=== PATIENT | male | born 1970 | race Hispanic/Latino ===

== ENCOUNTER 2018-08-06 21:45 | Inpatient (IN) | payer OTHER ==
[~2018-08-06] VITALS: Ht 167.6 cm; Wt 59.0 kg
[2018-08-06 22:32] LABS: APPEARANCE,URINE Clear (CLEAR); BILIRUBIN,URINE Negative (NEGATIVE); COLOR,URINE Yellow (YELLOW); GLUCOSE, URINE (UA) Negative (NEGATIVE); KETONES,URINE Negative (NEGATIVE); LEUKOCYTE ESTERASE ,URINE Negative (NEGATIVE); NITRATE,URINE Negative (NEGATIVE); OCCULT BLOOD,URINE Negative (NEGATIVE); PH,URINE 6.5 (5.0-8.0); PROTEIN,URINE Negative (NEGATIVE)
[2018-08-06 22:40] LABS: BASOPHILS % (AUTO) 1.9 % (0.0-5.0); EOSINOPHILS % (AUTO) 0.3 % (0.0-8.0); HEMATOCRIT 27.2 % (42-54); LYMPHOCYTES % (AUTO) 40.1 % (21.0-51.0); MEAN CORPUSCULAR HEMOGLOBIN 25.9 pg (27.0-33.0); MEAN CORPUSCULAR HGB CONC 32.6 g/dL (32.0-36.0); MEAN CORPUSCULAR VOLUME 79.6 fL (79-99); MONOCYTES % (AUTO) 10.7 % (3.0-13.0); NUCLEATED RED BLOOD CELLS 0.1 % (0.0-0.19); PLATELET COUNT (AUTO) 77 K/uL (130-400); RED BLOOD CELL COUNT(AUTO) 3.41 MIL/uL (4.50-6.20); RED CELL DISTRIBUTION WIDTH 17.7 % (11.0-15.5)
[2018-08-06 22:55] LABS: INR 1.15 (0.85-1.15); PARTIAL THROMBOPLASTIN TIME 31.4 SEC (26.3-35.5)
[2018-08-06 23:00] LABS: ALBUMIN 2.8 g/dL (3.5-5.0); BILIRUBIN,TOTAL 1.6 mg/dL (0.2-1.0); CREATININE 0.6 mg/dL (0.5-1.5); POTASSIUM 3.5 mmol/L (3.5-5.1); TOTAL PROTEIN, SERUM 9.4 g/dL (6.0-8.3)
[2018-08-07] MEDS ORDERED: SODIUM CHLORIDE 0.9% 1000ML 1,000 ML IV SCH (01:13)
[2018-08-07] MEDS ORDERED: MORPHINE SULFATE 2 MG/ML 1ML SYG IV PRN (01:15)
[2018-08-07] MEDS ORDERED: ONDANSETRON HCL 4 MG/2 ML VIAL IV PRN (01:15)
[2018-08-07] MEDS ORDERED: ACETAMINOPHEN 325 MG TAB PO PRN (01:15)
[2018-08-07] MEDS ORDERED: ALBUTEROL SULFATE 0.083% 2.5 MG/3 ML INH IH PRN (01:15)
[2018-08-07] MEDS ORDERED: SODIUM CHLORIDE 0.9% 1000ML 1,000 ML IV ONE (01:46)
[2018-08-07 02:00] VITALS: BP 108/81
[2018-08-07 03:48] VITALS: BP 90/58
[2018-08-07] MEDS ORDERED: LIDOCAINE HCL-MPF 1% 2ML VIAL IVP PRN (07:00)
[2018-08-07] MEDS ORDERED: POTASSIUM CHLORIDE 20MEQ/100ML 100 ML IV PRN (07:00)
[2018-08-07] MEDS ORDERED: POTASSIUM CHLORIDE 10% ELIXIR 20 MEQ/15 ML UDCUP PO PRN (07:00)
[2018-08-07] MEDS: MAGNESIUM 2GM PREMIX 50ML 50 ML IV PRN (07:01)
[2018-08-07 08:00] VITALS: BP 102/66
[2018-08-07] MEDS: M.V.I. IV [ADULT] 10 ML, FOLIC ACID 1 MG, THIAMINE HCL 100 MG in SODIUM CHLORIDE 0.9% 1... IV SCH (09:18)
[2018-08-07] MEDS: FAMOTIDINE/PF 20 MG/2 ML VIAL IV SCH ×2 (09:19→22:10)
[2018-08-07 11:00] VITALS: BP 109/70
[2018-08-07] MEDS ORDERED: CHLORDIAZEPOXIDE HCL 25 MG CAP PO ONE (11:30)
[2018-08-07] MEDS ORDERED: LORAZEPAM 0.5 MG TABLET PO PRN (11:30)
[2018-08-07 18:07] LABS: APPEARANCE BODY FLUID SLIGHTLY CLOUDY (CLEAR); SPECIMENTYPE,BODY FLUID ASCITES
[2018-08-07 18:08] LABS: BODY FLUID RBC 1254 /cu. mm.; BODY FLUID WBC 188 /cu. mm.; COLOR,BODY FLUID YELLOW (LT YELLOW); TOTAL VOLUME,BODY FLUID 4500 mL
[2018-08-07 18:54] LABS: BF LYMPHOCYTE 43 %; BF MONOCYTE 8 %; BF OTHER CELLS 16
[2018-08-07 20:00] VITALS: BP 116/71
[2018-08-08] VITALS: BP 138/73
[2018-08-08 04:00] VITALS: BP 129/78
[2018-08-08 05:38] LABS: HEMATOCRIT 26.3 % (42-54); MEAN CORPUSCULAR HEMOGLOBIN 26.2 pg (27.0-33.0); MEAN CORPUSCULAR HGB CONC 32.7 g/dL (32.0-36.0); NUCLEATED RED BLOOD CELLS 0.2 % (0.0-0.19); PLATELET COUNT (AUTO) 68 K/uL (130-400); RED BLOOD CELL COUNT(AUTO) 3.28 MIL/uL (4.50-6.20); RED CELL DISTRIBUTION WIDTH 18.3 % (11.0-15.5); WHITE BLOOD COUNT (AUTO) 4.1 K/uL (4.8-10.8)
[2018-08-08 05:56] LABS: ALBUMIN 2.4 g/dL (3.5-5.0); BILIRUBIN,TOTAL 2.3 mg/dL (0.2-1.0); CREATININE 0.6 mg/dL (0.5-1.5); MAGNESIUM 1.4 mg/dL (1.80-2.40); TOTAL PROTEIN, SERUM 8.3 g/dL (6.0-8.3)
[2018-08-08 06:12] LABS: POTASSIUM 2.9 mmol/L (3.5-5.1)
[2018-08-08 08:00] VITALS: BP 126/81
[2018-08-08] MEDS: FAMOTIDINE/PF 20 MG/2 ML VIAL IV SCH ×2 (08:08→21:38)
[2018-08-08] MEDS: MAGNESIUM 2GM PREMIX 50ML 50 ML IV PRN (08:09)
[2018-08-08] MEDS: CHLORDIAZEPOXIDE HCL 25 MG CAP PO SCH ×3 (08:09→23:13)
[2018-08-08] MEDS ORDERED: POTASSIUM CHLORIDE 10% ELIXIR 20 MEQ/15 ML UDCUP PO ONE (09:00)
[2018-08-08] MEDS: M.V.I. IV [ADULT] 10 ML, FOLIC ACID 1 MG, THIAMINE HCL 100 MG in SODIUM CHLORIDE 0.9% 1... IV SCH (10:57)
[2018-08-08 11:00] VITALS: BP 110/76
[2018-08-08] MEDS: POTASSIUM CHLORIDE 20 MEQ ERTAB PO PRN (13:11)
[2018-08-08 16:00] VITALS: BP 114/77
[2018-08-08 20:00] VITALS: BP 112/72
[2018-08-08 20:18] LABS: MAGNESIUM 1.8 mg/dL (1.80-2.40); POTASSIUM 3.8 mmol/L (3.5-5.1)
[2018-08-09] VITALS: BP 108/69
[2018-08-09 04:00] VITALS: BP 109/65
[2018-08-09 04:56] LABS: HEMATOCRIT 25.8 % (42-54); MEAN CORPUSCULAR HGB CONC 33.4 g/dL (32.0-36.0); MEAN CORPUSCULAR VOLUME 81.1 fL (79-99); NUCLEATED RED BLOOD CELLS 0.1 % (0.0-0.19); PLATELET COUNT (AUTO) 77 K/uL (130-400); RED BLOOD CELL COUNT(AUTO) 3.18 MIL/uL (4.50-6.20); RED CELL DISTRIBUTION WIDTH 18.6 % (11.0-15.5); WHITE BLOOD COUNT (AUTO) 5.5 K/uL (4.8-10.8)
[2018-08-09 05:16] LABS: ALBUMIN 2.2 g/dL (3.5-5.0); BILIRUBIN,DIRECT 1.3 mg/dL (0.0-0.3); BILIRUBIN,TOTAL 2.3 mg/dL (0.2-1.0); CREATININE 0.6 mg/dL (0.5-1.5); POTASSIUM 3.4 mmol/L (3.5-5.1); TOTAL PROTEIN, SERUM 8.1 g/dL (6.0-8.3)
[2018-08-09] MEDS: MAGNESIUM 2GM PREMIX 50ML 50 ML IV PRN (05:45)
[2018-08-09] MEDS: POTASSIUM CHLORIDE 20 MEQ ERTAB PO PRN (05:51)
[2018-08-09 08:00] VITALS: BP 111/74
[2018-08-09] MEDS: CHLORDIAZEPOXIDE HCL 25 MG CAP PO SCH (08:30)
[2018-08-09] MEDS: FAMOTIDINE/PF 20 MG/2 ML VIAL IV SCH (08:30)
[2018-08-09 12:00] VITALS: BP 99/55
[2018-08-09] MEDS ORDERED: POTASSIUM CHLORIDE 10% ELIXIR 20 MEQ/15 ML UDCUP PO STA (12:51)
== END 2018-08-09 13:45 | disposition home or self-care (01) | DRG 433 ==
LOC: EDH 21:45 → EDHIP 21:46 → OBSVTOIN 21:46 → 3AH 08-07 01:35
PROVIDERS: ADMIT Internal Medicine; ATTEND Internal Medicine
PROC: 3E02340 Introduction of Influenza Vaccine into Muscle, Percutaneous Approach (ICD-10-PCS; principal; 2018-08-07)
PROC: 0W9G30Z Drainage of Peritoneal Cavity with Drainage Device, Percutaneous Approach (ICD-10-PCS; 2018-08-07)
DX: K70.31 Alcoholic cirrhosis of liver with ascites (principal); E87.1 Hypo-osmolality and hyponatremia; F10.10 Alcohol abuse, uncomplicated; E83.42 Hypomagnesemia; E87.6 Hypokalemia; F17.210 Nicotine dependence, cigarettes, uncomplicated; Z23 Encounter for immunization
CPT/HCPCS: 36415; 49083; 71045; 74176; 80048; 80053; 80076; 81003; 82140; 83690; 83735; 84132; 84484; 85025; 85027; 85610; 85730; 87071; 87205; 88108; 88305; 89051; 93005; 94664; G0378; G0480; J3411; J3475; J3480; J3490; J7030; Q2035

== ENCOUNTER 2019-01-19 20:06 | Inpatient (IN) | payer OTHER ==
[~2019-01-19] VITALS: Ht 167.6 cm; Wt 60.8 kg
[2019-01-19 20:28] LABS: APPEARANCE,URINE Clear (CLEAR); BILIRUBIN,URINE Negative (NEGATIVE); COLOR,URINE Yellow (YELLOW); GLUCOSE, URINE (UA) Negative (NEGATIVE); KETONES,URINE Negative (NEGATIVE); LEUKOCYTE ESTERASE ,URINE Negative (NEGATIVE); NITRATE,URINE Negative (NEGATIVE); OCCULT BLOOD,URINE Negative (NEGATIVE); PROTEIN,URINE Negative (NEGATIVE)
[2019-01-19 20:36] LABS: AMPHET/METH SCREEN,URINE NEGATIVE (NEGATIVE); BARBITURATE SCREEN, URINE NEGATIVE (NEGATIVE); BENZODIAZEPINES SCREEN,URINE NEGATIVE (NEGATIVE); CANNABINOID SCREEN,URINE NEGATIVE (NEGATIVE); COCAINE SCREEN,URINE NEGATIVE (NEGATIVE); OPIATE SCREEN,URINE NEGATIVE (NEGATIVE); PHENCYCLIDINE SCREEN,URINE NEGATIVE (NEGATIVE)
[2019-01-19 20:36] LABS: BASOPHILS % (AUTO) 1.3 % (0.0-5.0); EOSINOPHILS % (AUTO) 0.4 % (0.0-8.0); HEMATOCRIT 26.9 % (42-54); LYMPHOCYTES % (AUTO) 29.5 % (21.0-51.0); MEAN CORPUSCULAR HEMOGLOBIN 24.8 pg (27.0-33.0); MEAN CORPUSCULAR HGB CONC 32.4 g/dL (32.0-36.0); MEAN CORPUSCULAR VOLUME 76.6 fL (79-99); NEUTROPHILS % (AUTO) 56.8 % (40.0-77.0); PLATELET COUNT (AUTO) 61 K/uL (130-400); RED BLOOD CELL COUNT(AUTO) 3.52 MIL/uL (4.50-6.20); RED CELL DISTRIBUTION WIDTH 20.7 % (11.0-15.5); WHITE BLOOD COUNT (AUTO) 4.7 K/uL (4.8-10.8)
[2019-01-19 20:47] LABS: CREATININE 0.6 mg/dL (0.5-1.5); POTASSIUM 3.6 mmol/L (3.5-5.1)
[2019-01-19 20:52] LABS: BILIRUBIN,TOTAL 2.3 mg/dL (0.2-1.0); TOTAL PROTEIN, SERUM 9.2 g/dL (6.0-8.3)
[2019-01-19 21:04] LABS: INR 1.17 (0.85-1.15); PARTIAL THROMBOPLASTIN TIME 31.1 SEC (26.3-35.5); PLATELET MORPHOLOGY COMMENT DECREASED; PROTHROMBIN TIME 12.2 SEC (9.6-11.6)
[2019-01-19] MEDS ORDERED: SODIUM CHLORIDE 0.9% 100 ML IV ONE (21:26)
[2019-01-19 21:33] LABS: AMYLASE 100 U/L (25-115)
[2019-01-19 21:46] LABS: ALCOHOL, BLOOD 375 mg/dL (0-10)
[2019-01-19] MEDS ORDERED: THIAMINE HCL 100 MG/ML 2ML VIAL ONE (22:06)
[2019-01-19] MEDS ORDERED: SODIUM CHLORIDE 0.9% 500ML 500 ML IV ONE (22:06)
[2019-01-19] MEDS ORDERED: PHYTONADIONE 10 MG/1 ML AMP ONE (22:38)
[2019-01-19] MEDS ORDERED: LORAZEPAM 2 MG/ML 1 ML VIAL IVP PRN ×2 (22:45)
[2019-01-19] MEDS ORDERED: NITROGLYCERIN 0.4 MG SL TAB SL PRN (22:45)
[2019-01-19] MEDS ORDERED: PHARMACY COMMUNICATION MISC PRN (22:45)
[2019-01-19] MEDS ORDERED: PROMETHAZINE HCL 25 MG TABLET PO PRN (22:45)
[2019-01-19] MEDS ORDERED: ACETAMINOPHEN 650 MG SUPPOSITORY RC PRN ×2 (22:45)
[2019-01-19] MEDS: THIAMINE HCL 100 MG, FOLIC ACID 1 MG, M.V.I. IV [ADULT] 10 ML in SODIUM CHLORIDE 0.9% 1... IV SCH (22:45)
[2019-01-19] MEDS ORDERED: CHLORDIAZEPOXIDE HCL 25 MG CAP PO PRN ×2 (22:45)
[2019-01-19] MEDS ORDERED: ONDANSETRON HCL 4 MG/2 ML VIAL IV PRN (22:45)
[2019-01-19 23:09] LABS: MAGNESIUM 1.5 mg/dL (1.80-2.40); PHOSPHORUS 3.8 mg/dL (2.5-4.9)
[2019-01-19 23:14] VITALS: BP 118/84
[2019-01-19] MEDS ORDERED: MAGNESIUM 2GM PREMIX 50ML 50 ML IV ONE (23:43)
[2019-01-19] MEDS ORDERED: LACTATED RINGERS 1000ML 1,000 ML IV ONE (23:43)
[2019-01-19] MEDS: LACTATED RINGERS 1000ML 1,000 ML IV SCH (23:58)
[2019-01-19] MEDS: MAGNESIUM 2GM PREMIX 50ML 50 ML IV PRN (23:59)
[2019-01-20 04:00] VITALS: BP 124/88
[2019-01-20 05:24] LABS: BASOPHILS % (AUTO) 1.8 % (0.0-5.0); EOSINOPHILS % (AUTO) 1.2 % (0.0-8.0); HEMATOCRIT 25.7 % (42-54); LYMPHOCYTES % (AUTO) 33.8 % (21.0-51.0); MEAN CORPUSCULAR HEMOGLOBIN 25.6 pg (27.0-33.0); MEAN CORPUSCULAR HGB CONC 32.5 g/dL (32.0-36.0); MEAN CORPUSCULAR VOLUME 78.7 fL (79-99); MONOCYTES % (AUTO) 13.4 % (3.0-13.0); NEUTROPHILS % (AUTO) 49.8 % (40.0-77.0); NUCLEATED RED BLOOD CELLS 0.1 % (0.0-0.19); PLATELET COUNT (AUTO) 48 K/uL (130-400); RED BLOOD CELL COUNT(AUTO) 3.27 MIL/uL (4.50-6.20); RED CELL DISTRIBUTION WIDTH 20.7 % (11.0-15.5); WHITE BLOOD COUNT (AUTO) 3.2 K/uL (4.8-10.8)
[2019-01-20] MEDS: LACTATED RINGERS 1000ML 1,000 ML IV SCH ×3 (05:25→20:55)
[2019-01-20 05:32] LABS: CREATININE 0.5 mg/dL (0.5-1.5); POTASSIUM 3.3 mmol/L (3.5-5.1)
[2019-01-20 05:38] LABS: ALBUMIN 2.4 g/dL (3.5-5.0); BILIRUBIN,TOTAL 2.4 mg/dL (0.2-1.0); PHOSPHORUS 3.7 mg/dL (2.5-4.9); TOTAL PROTEIN, SERUM 7.7 g/dL (6.0-8.3)
[2019-01-20 05:49] LABS: INR 1.21 (0.85-1.15); PARTIAL THROMBOPLASTIN TIME 31.1 SEC (26.3-35.5); PROTHROMBIN TIME 12.7 SEC (9.6-11.6)
[2019-01-20 08:00] VITALS: BP 110/71
[2019-01-20] MEDS: PANTOPRAZOLE SODIUM 80 MG in SODIUM CHLORIDE 0.9% 100 ML IV SCH (10:52)
[2019-01-20] MEDS: THIAMINE HCL 100 MG, FOLIC ACID 1 MG, M.V.I. IV [ADULT] 10 ML in SODIUM CHLORIDE 0.9% 1... IV SCH (10:53)
[2019-01-20] MEDS: FAMOTIDINE/PF 20 MG/2 ML VIAL IV SCH ×2 (11:25→20:53)
[2019-01-20 11:29] VITALS: BP 116/71
[2019-01-20] MEDS ORDERED: MAGNESIUM 2GM PREMIX 50ML 50 ML IV PRN (15:15)
[2019-01-20] MEDS: NICOTINE 14 MG/ 24 HR PATCH TD SCH (15:57)
[2019-01-20 16:00] VITALS: BP 114/67
[2019-01-20 19:58] VITALS: BP 120/66
[2019-01-20] MEDS: LIDOCAINE HCL-MPF 1% 2ML VIAL IVP PRN ×2 (20:54→23:03)
[2019-01-20] MEDS: POTASSIUM CHLORIDE 20MEQ/100ML 100 ML IV PRN ×2 (20:54→23:03)
[2019-01-20 23:25] VITALS: BP 127/71
[2019-01-21] MEDS: LACTATED RINGERS 1000ML 1,000 ML IV SCH ×4 (03:04→20:56)
[2019-01-21 03:47] VITALS: BP 129/77
[2019-01-21 05:13] LABS: BASOPHILS % (AUTO) 1.4 % (0.0-5.0); EOSINOPHILS % (AUTO) 0.1 % (0.0-8.0); HEMATOCRIT 26.5 % (42-54); LYMPHOCYTES % (AUTO) 17.2 % (21.0-51.0); MEAN CORPUSCULAR HEMOGLOBIN 25.1 pg (27.0-33.0); MEAN CORPUSCULAR HGB CONC 31.7 g/dL (32.0-36.0); MEAN CORPUSCULAR VOLUME 79.2 fL (79-99); MONOCYTES % (AUTO) 14.1 % (3.0-13.0); NEUTROPHILS % (AUTO) 67.2 % (40.0-77.0); PLATELET COUNT (AUTO) 51 K/uL (130-400); RED BLOOD CELL COUNT(AUTO) 3.35 MIL/uL (4.50-6.20); RED CELL DISTRIBUTION WIDTH 21.2 % (11.0-15.5); WHITE BLOOD COUNT (AUTO) 4.2 K/uL (4.8-10.8)
[2019-01-21 05:32] LABS: ALBUMIN 2.6 g/dL (3.5-5.0); BILIRUBIN,DIRECT 1.9 mg/dL (0.0-0.3); BILIRUBIN,TOTAL 3.5 mg/dL (0.2-1.0); CREATININE 0.7 mg/dL (0.5-1.5); MAGNESIUM 1.6 mg/dL (1.80-2.40); TOTAL PROTEIN, SERUM 8.2 g/dL (6.0-8.3)
[2019-01-21] MEDS: MAGNESIUM 2GM PREMIX 50ML 50 ML IV PRN (05:59)
[2019-01-21] MEDS: THIAMINE HCL 100 MG, FOLIC ACID 1 MG, M.V.I. IV [ADULT] 10 ML in SODIUM CHLORIDE 0.9% 1... IV SCH (07:53)
[2019-01-21] MEDS: PANTOPRAZOLE SODIUM 80 MG in SODIUM CHLORIDE 0.9% 100 ML IV SCH ×2 (07:54→19:38)
[2019-01-21] MEDS: NICOTINE 14 MG/ 24 HR PATCH TD SCH (07:54)
[2019-01-21] MEDS: FAMOTIDINE/PF 20 MG/2 ML VIAL IV SCH ×2 (07:54→20:56)
[2019-01-21 08:47] VITALS: BP 136/79
[2019-01-21 13:12] VITALS: BP 128/54
[2019-01-21 17:22] VITALS: BP 135/77
[2019-01-21 20:00] VITALS: BP 114/72
[2019-01-21 23:18] VITALS: BP 133/76
[2019-01-22 04:02] VITALS: BP 129/72
[2019-01-22] MEDS: LACTATED RINGERS 1000ML 1,000 ML IV SCH ×3 (04:05→17:25)
[2019-01-22 05:38] LABS: BASOPHILS % (AUTO) 1.3 % (0.0-5.0); EOSINOPHILS % (AUTO) 1.2 % (0.0-8.0); HEMATOCRIT 25.8 % (42-54); LYMPHOCYTES % (AUTO) 28.6 % (21.0-51.0); MEAN CORPUSCULAR HGB CONC 32.9 g/dL (32.0-36.0); MEAN CORPUSCULAR VOLUME 79.1 fL (79-99); MONOCYTES % (AUTO) 17.1 % (3.0-13.0); NEUTROPHILS % (AUTO) 51.8 % (40.0-77.0); NUCLEATED RED BLOOD CELLS 0.1 % (0.0-0.19); PLATELET COUNT (AUTO) 59 K/uL (130-400); RED BLOOD CELL COUNT(AUTO) 3.26 MIL/uL (4.50-6.20); RED CELL DISTRIBUTION WIDTH 20.2 % (11.0-15.5); WHITE BLOOD COUNT (AUTO) 3.8 K/uL (4.8-10.8)
[2019-01-22 05:52] LABS: ALBUMIN 2.5 g/dL (3.5-5.0); BILIRUBIN,DIRECT 1.9 mg/dL (0.0-0.3); BILIRUBIN,TOTAL 3.4 mg/dL (0.2-1.0); CREATININE 0.7 mg/dL (0.5-1.5); POTASSIUM 3.3 mmol/L (3.5-5.1); TOTAL PROTEIN, SERUM 7.9 g/dL (6.0-8.3)
[2019-01-22] MEDS: THIAMINE HCL 100 MG, FOLIC ACID 1 MG, M.V.I. IV [ADULT] 10 ML in SODIUM CHLORIDE 0.9% 1... IV SCH (07:00)
[2019-01-22 08:00] VITALS: BP 131/88
[2019-01-22] MEDS: FAMOTIDINE/PF 20 MG/2 ML VIAL IV SCH ×2 (09:54→21:13)
[2019-01-22] MEDS: NICOTINE 14 MG/ 24 HR PATCH TD SCH (09:54)
[2019-01-22 11:00] VITALS: BP 129/81
[2019-01-22 16:00] VITALS: BP 118/72
[2019-01-22 19:13] VITALS: BP 132/72
[2019-01-22 23:21] VITALS: BP 134/71
[2019-01-23 03:20] VITALS: BP 137/75
[2019-01-23 04:20] LABS: BASOPHILS % (AUTO) 1.2 % (0.0-5.0); EOSINOPHILS % (AUTO) 1.5 % (0.0-8.0); HEMATOCRIT 27.3 % (42-54); LYMPHOCYTES % (AUTO) 27.5 % (21.0-51.0); MEAN CORPUSCULAR HEMOGLOBIN 25.5 pg (27.0-33.0); MEAN CORPUSCULAR HGB CONC 32.3 g/dL (32.0-36.0); MONOCYTES % (AUTO) 15.5 % (3.0-13.0); NEUTROPHILS % (AUTO) 54.3 % (40.0-77.0); PLATELET COUNT (AUTO) 81 K/uL (130-400); RED BLOOD CELL COUNT(AUTO) 3.45 MIL/uL (4.50-6.20); RED CELL DISTRIBUTION WIDTH 21.4 % (11.0-15.5); WHITE BLOOD COUNT (AUTO) 3.8 K/uL (4.8-10.8)
[2019-01-23 04:36] LABS: CREATININE 0.5 mg/dL (0.5-1.5); MAGNESIUM 1.3 mg/dL (1.80-2.40); POTASSIUM 3.1 mmol/L (3.5-5.1)
[2019-01-23] MEDS: LACTATED RINGERS 1000ML 1,000 ML IV SCH (05:52)
[2019-01-23] MEDS: POTASSIUM CHLORIDE 20MEQ/100ML 100 ML IV PRN (05:52)
[2019-01-23 08:00] VITALS: BP 113/75
[2019-01-23] MEDS: NICOTINE 14 MG/ 24 HR PATCH TD SCH (08:49)
[2019-01-23] MEDS: LIDOCAINE HCL-MPF 1% 2ML VIAL IVP PRN (08:49)
[2019-01-23] MEDS: FAMOTIDINE/PF 20 MG/2 ML VIAL IV SCH ×2 (08:50→20:29)
[2019-01-23 11:00] VITALS: BP 121/76
[2019-01-23] MEDS: MAGNESIUM 2GM PREMIX 50ML 50 ML IV PRN (11:57)
[2019-01-23] MEDS: NS-20 MEQ KCL 1000ML 1,000 ML IV SCH ×2 (11:57→20:45)
[2019-01-23 16:00] VITALS: BP 115/73
[2019-01-23 20:00] VITALS: BP 122/76
[2019-01-23] MEDS: PANTOPRAZOLE SODIUM 80 MG in SODIUM CHLORIDE 0.9% 100 ML IV SCH (20:29)
[2019-01-23 23:58] VITALS: BP 126/80
[2019-01-24 04:00] VITALS: BP 131/73
[2019-01-24 04:36] LABS: MEAN CORPUSCULAR HEMOGLOBIN 26.5 pg (27.0-33.0); MEAN CORPUSCULAR HGB CONC 32.9 g/dL (32.0-36.0); MEAN CORPUSCULAR VOLUME 80.3 fL (79-99); PLATELET COUNT (AUTO) 67 K/uL (130-400); RED BLOOD CELL COUNT(AUTO) 3.36 MIL/uL (4.50-6.20); RED CELL DISTRIBUTION WIDTH 21.6 % (11.0-15.5); WHITE BLOOD COUNT (AUTO) 3.5 K/uL (4.8-10.8)
[2019-01-24 04:47] LABS: CREATININE 0.6 mg/dL (0.5-1.5); POTASSIUM 3.9 mmol/L (3.5-5.1)
[2019-01-24] MEDS: NS-20 MEQ KCL 1000ML 1,000 ML IV SCH ×2 (06:52→18:16)
[2019-01-24 08:16] VITALS: BP 112/79
[2019-01-24] MEDS: PANTOPRAZOLE SODIUM 80 MG in SODIUM CHLORIDE 0.9% 100 ML IV SCH (11:07)
[2019-01-24] MEDS: NICOTINE 14 MG/ 24 HR PATCH TD SCH (11:15)
[2019-01-24] MEDS: FAMOTIDINE/PF 20 MG/2 ML VIAL IV SCH ×2 (11:18→22:00)
[2019-01-24 12:03] VITALS: BP 115/74
[2019-01-24 16:42] VITALS: BP 137/80
[2019-01-24] MEDS: SODIUM CHLORIDE 0.9% 1000ML 1,000 ML IV SCH (18:30)
[2019-01-24 20:00] VITALS: BP 93/58
[2019-01-24 23:52] VITALS: BP 127/82
[2019-01-25 04:00] VITALS: BP 129/85
[2019-01-25 04:22] LABS: HEMATOCRIT 26.6 % (42-54); MEAN CORPUSCULAR HEMOGLOBIN 25.6 pg (27.0-33.0); MEAN CORPUSCULAR HGB CONC 32.2 g/dL (32.0-36.0); MEAN CORPUSCULAR VOLUME 79.5 fL (79-99); NUCLEATED RED BLOOD CELLS 0.1 % (0.0-0.19); PLATELET COUNT (AUTO) 86 K/uL (130-400); RED BLOOD CELL COUNT(AUTO) 3.35 MIL/uL (4.50-6.20); RED CELL DISTRIBUTION WIDTH 21.8 % (11.0-15.5); WHITE BLOOD COUNT (AUTO) 3.8 K/uL (4.8-10.8)
[2019-01-25 04:32] LABS: CREATININE 0.7 mg/dL (0.5-1.5); POTASSIUM 3.2 mmol/L (3.5-5.1)
[2019-01-25] MEDS: SODIUM CHLORIDE 0.9% 1000ML 1,000 ML IV SCH (06:04)
[2019-01-25] MEDS: LIDOCAINE HCL-MPF 1% 2ML VIAL IVP PRN (06:05)
[2019-01-25] MEDS: POTASSIUM CHLORIDE 20MEQ/100ML 100 ML IV PRN (06:05)
[2019-01-25] MEDS ORDERED: POTASSIUM CHLORIDE 20 MEQ ERTAB PO SCH ×2 (08:00→10:00)
[2019-01-25] MEDS ORDERED: PANT40TA25 PO (08:10)
[2019-01-25] MEDS ORDERED: FOLI1TAB15 PO (08:10)
[2019-01-25] MEDS ORDERED: FERR324T4 PO (08:10)
[2019-01-25] MEDS ORDERED: THIA100T78 PO (08:10)
[2019-01-25 08:16] VITALS: BP 109/74
[2019-01-25] MEDS: FAMOTIDINE/PF 20 MG/2 ML VIAL IV SCH (09:15)
[2019-01-25] MEDS: NICOTINE 14 MG/ 24 HR PATCH TD SCH (09:15)
[2019-01-25 11:00] VITALS: BP 110/71
== END 2019-01-25 13:09 | disposition home or self-care (01) | DRG 433 ==
LOC: EDH 20:06 → EDHIP 20:07 → 4BH 23:06
PROVIDERS: ADMIT Internal Medicine; ATTEND Internal Medicine
DX: K70.30 Alcoholic cirrhosis of liver without ascites (principal); D61.818 Other pancytopenia; E87.1 Hypo-osmolality and hyponatremia; J98.11 Atelectasis; E44.0 Moderate protein-calorie malnutrition; R18.8 Other ascites; F10.129 Alcohol abuse with intoxication, unspecified; E83.42 Hypomagnesemia; F17.210 Nicotine dependence, cigarettes, uncomplicated; E87.6 Hypokalemia; Y90.8 Blood alcohol level of 240 mg/100 ml or more; Z91.19 Patient's noncompliance with other medical treatment and regimen; Z68.21 Body mass index [BMI] 21.0-21.9, adult
CPT/HCPCS: 36415; 71045; 74176; 80048; 80053; 80061; 80076; 80305; 81003; 82105; 82150; 82270; 82550; 83690; 83735; 83880; 84100; 84484; 85025; 85027; 85610; 85730; 93005; 99291; C9113; G0378; G0480; J3411; J3430; J3475; J3480; J3490; J7030; J7040; J7120

== ENCOUNTER 2019-03-30 22:45 | Inpatient (IN) | payer OTHER ==
[~2019-03-30] VITALS: Ht 167.6 cm; Wt 58.6 kg
[~2019-03-30 22:45] MED LIST: FERR324T4 PO; FOLI1TAB15 PO; PANT40TA25 PO; THIA100T78 PO
[2019-03-30] MEDS ORDERED: ACETAMINOPHEN EXTRA STRENGTH 500 MG TABLET ONE (23:07)
[2019-03-30 23:30] LABS: APPEARANCE,URINE Clear (CLEAR); BILIRUBIN,URINE Small (NEGATIVE); COLOR,URINE Dark Yellow (YELLOW); GLUCOSE, URINE (UA) Negative (NEGATIVE); KETONES,URINE Trace mg/dL (NEGATIVE); LEUKOCYTE ESTERASE ,URINE Trace (NEGATIVE); NITRATE,URINE Negative (NEGATIVE); OCCULT BLOOD,URINE Negative (NEGATIVE); PROTEIN,URINE Trace mg/dL (NEGATIVE)
[2019-03-30 23:37] LABS: BACTERIA,URINE None Seen /HPF (None Seen); RBC,URINE 0-1 /HPF (0-1); WBC,URINE 0-1 /HPF (0-1)
[2019-03-30 23:38] LABS: MUCUS,URINE Rare LPF (None Seen); SQUAMOUS EPITHELIAL CELL,UR Rare /HPF (0-2)
[2019-03-30 23:40] LABS: BASOPHILS % (AUTO) 0.4 % (0.0-5.0); EOSINOPHILS % (AUTO) 0.7 % (0.0-8.0); LYMPHOCYTES % (AUTO) 22.2 % (21.0-51.0); MEAN CORPUSCULAR HEMOGLOBIN 27.9 pg (27.0-33.0); MEAN CORPUSCULAR HGB CONC 33.2 g/dL (32.0-36.0); MONOCYTES % (AUTO) 11.1 % (3.0-13.0); NEUTROPHILS % (AUTO) 65.6 % (40.0-77.0); PLATELET COUNT (AUTO) 76 K/uL (130-400); RED BLOOD CELL COUNT(AUTO) 2.46 MIL/uL (4.50-6.20); RED CELL DISTRIBUTION WIDTH 18.6 % (11.0-15.5); WHITE BLOOD COUNT (AUTO) 5.4 K/uL (4.8-10.8)
[2019-03-30 23:42] LABS: CREATININE 0.9 mg/dL (0.5-1.5); POTASSIUM 3.4 mmol/L (3.5-5.1)
[2019-03-30 23:44] LABS: HEMATOCRIT 20.7 % (42-54); RAPID GROUP A STREP NEGATIVE (NEGATIVE)
[2019-03-30 23:47] LABS: ALBUMIN 2.7 g/dL (3.5-5.0); BILIRUBIN,TOTAL 2.3 mg/dL (0.2-1.0); TOTAL PROTEIN, SERUM 7.8 g/dL (6.0-8.3)
[2019-03-31] MEDS ORDERED: ACETAMINOPHEN EXTRA STRENGTH 500 MG TABLET ONE (03:02)
[2019-03-31] MEDS: SODIUM CHLORIDE 0.9% 1000ML 1,000 ML IV SCH ×3 (03:09→23:21)
[2019-03-31] MEDS ORDERED: LIDOCAINE HCL-MPF 1% 2ML VIAL IVP PRN ×3 (03:45→07:00)
[2019-03-31] MEDS ORDERED: POTASSIUM CHLORIDE 10% ELIXIR 20 MEQ/15 ML UDCUP PO PRN ×2 (03:45→07:00)
[2019-03-31] MEDS ORDERED: POTASSIUM CHLORIDE 20MEQ/100ML 100 ML IV PRN ×3 (03:45→07:00)
[2019-03-31] MEDS ORDERED: POTASSIUM CHLORIDE 20 MEQ ERTAB PO PRN ×2 (03:45→07:00)
[2019-03-31 03:50] VITALS: BP 107/63
[2019-03-31] MEDS ORDERED: POTASSIUM CHLORIDE 20 MEQ ERTAB PO ONE (04:06)
[2019-03-31] MEDS ORDERED: ACETAMINOPHEN 325 MG TAB PO PRN ×2 (04:45)
[2019-03-31] MEDS ORDERED: ONDANSETRON HCL 4 MG/2 ML VIAL IVP PRN (04:45)
[2019-03-31] MEDS ORDERED: LACTULOSE 20 GM/30 ML UDCUP PO PRN (04:45)
[2019-03-31 06:01] LABS: BASOPHILS % (AUTO) 0.5 % (0.0-5.0); EOSINOPHILS % (AUTO) 0.9 % (0.0-8.0); HEMATOCRIT 21.6 % (42-54); LYMPHOCYTES % (AUTO) 25.7 % (21.0-51.0); MEAN CORPUSCULAR HEMOGLOBIN 27.4 pg (27.0-33.0); MEAN CORPUSCULAR HGB CONC 32.8 g/dL (32.0-36.0); MEAN CORPUSCULAR VOLUME 83.5 fL (79-99); MONOCYTES % (AUTO) 15.5 % (3.0-13.0); NEUTROPHILS % (AUTO) 57.4 % (40.0-77.0); PLATELET COUNT (AUTO) 69 K/uL (130-400); RED BLOOD CELL COUNT(AUTO) 2.58 MIL/uL (4.50-6.20); RED CELL DISTRIBUTION WIDTH 17.1 % (11.0-15.5); WHITE BLOOD COUNT (AUTO) 4.9 K/uL (4.8-10.8)
[2019-03-31 06:19] LABS: % IRON SATURATION 24.5 % (30-44)
[2019-03-31 06:35] LABS: CREATININE 0.6 mg/dL (0.5-1.5)
[2019-03-31 06:40] LABS: POTASSIUM 2.9 mmol/L (3.5-5.1)
[2019-03-31 08:00] VITALS: BP 102/55
[2019-03-31] MEDS: FAMOTIDINE 20MG TAB 20 MG TAB PO SCH ×2 (09:33→21:10)
[2019-03-31 11:50] VITALS: BP 99/58
--- NOTE | 2019-03-31 15:47 | NUR ---
BLOOD TRANSFUSION INITIATED, NO ADVERSE REACTION NOTED, VS STABLE
[2019-03-31 16:00] VITALS: BP 111/70
--- NOTE | 2019-03-31 16:32 | NUR ---
INITIAL: Met w pt and family this afternoon to discuss dcp. 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 He is independent w ambulation and ADLs. He does not own any DME or receive services. Per pt he feels safe and comfortable to return home at ca. Low income packet provided to pt. CM to continue to follow and wait for Md recommendations. Addendum: 03/31/19 at 1637 by JAYLAN ALONSO Amended: Links added.
[2019-03-31 19:15] VITALS: BP 114/67
[2019-03-31 23:10] VITALS: BP 114/74
[2019-04-01] VITALS (13 sets, daily range): BP systolic 104–139; BP diastolic 57–82
[2019-04-01 06:29] LABS: HEMATOCRIT 24.7 % (42-54); MEAN CORPUSCULAR HEMOGLOBIN 27.8 pg (27.0-33.0); MEAN CORPUSCULAR HGB CONC 33.3 g/dL (32.0-36.0); MEAN CORPUSCULAR VOLUME 83.3 fL (79-99); NUCLEATED RED BLOOD CELLS 0.1 % (0.0-0.19); PLATELET COUNT (AUTO) 71 K/uL (130-400); RED BLOOD CELL COUNT(AUTO) 2.97 MIL/uL (4.50-6.20); RED CELL DISTRIBUTION WIDTH 17.6 % (11.0-15.5); WHITE BLOOD COUNT (AUTO) 4.8 K/uL (4.8-10.8)
[2019-04-01 06:35] LABS: CREATININE 0.6 mg/dL (0.5-1.5); MAGNESIUM 1.3 mg/dL (1.80-2.40); POTASSIUM 4.1 mmol/L (3.5-5.1)
[2019-04-01 08:30] LABS: EOSINOPHILS % (MANUAL) 1 % (1-6); LYMPHOCYTES % (MANUAL) 26 % (22-44); MAN.DIFF COMMENT-IMPRESSION MANUAL DIFFERENTIAL; MONOCYTES % (MANUAL) 11 % (2-9); SEGMENTED NEUTROPHILS % 62 % (40-70)
[2019-04-01] MEDS: SODIUM CHLORIDE 0.9% 1000ML 1,000 ML IV SCH ×2 (10:01→19:41)
[2019-04-01] MEDS: FAMOTIDINE 20MG TAB 20 MG TAB PO SCH ×2 (10:01→21:15)
[2019-04-01] MEDS: MAGNESIUM 2GM PREMIX 50ML 50 ML IV PRN (18:12)
[2019-04-01] MEDS: PROPRANOLOL HCL 10 MG TAB PO SCH (21:15)
[2019-04-02 03:00] VITALS: BP 125/72
[2019-04-02] MEDS: SODIUM CHLORIDE 0.9% 1000ML 1,000 ML IV SCH (04:18)
[2019-04-02 06:39] LABS: BILIRUBIN,DIRECT 1.1 mg/dL (0.0-0.3); BILIRUBIN,TOTAL 2.5 mg/dL (0.2-1.0); MAGNESIUM 1.5 mg/dL (1.80-2.40)
[2019-04-02] MEDS: MAGNESIUM 2GM PREMIX 50ML 50 ML IV PRN (06:44)
[2019-04-02 08:00] VITALS: BP 101/60
[2019-04-02] MEDS: FAMOTIDINE 20MG TAB 20 MG TAB PO SCH (10:43)
[2019-04-02] MEDS: PROPRANOLOL HCL 10 MG TAB PO SCH (10:43)
[2019-04-02] MEDS ORDERED: PANT40TA PO (11:48)
[2019-04-02] MEDS ORDERED: PROP10TA72 PO (11:48)
[2019-04-02 12:00] VITALS: BP 94/58
[2019-04-02 12:23] LABS: ALBUMIN 2.3 g/dL (3.5-5.0); BILIRUBIN,DIRECT 1.1 mg/dL (0.0-0.3); BILIRUBIN,TOTAL 2.1 mg/dL (0.2-1.0); CREATININE 0.8 mg/dL (0.5-1.5); POTASSIUM 3.5 mmol/L (3.5-5.1); TOTAL PROTEIN, SERUM 6.7 g/dL (6.0-8.3)
[2019-04-02 12:31] LABS: INR 1.2 (0.85-1.15); PROTHROMBIN TIME 12.6 SEC (9.6-11.6)
== END 2019-04-02 15:00 | disposition home or self-care (01) | DRG 432 ==
LOC: EDH 22:45 → OBSVTOIN 22:46 → EDHIP 22:46 → 3AH 03-31 03:35
PROVIDERS: ADMIT Internal Medicine; ATTEND Internal Medicine
PROC: 06L38CZ Occlusion of Esophageal Vein with Extraluminal Device, Via Natural or Artificial Opening Endoscopic (ICD-10-PCS; principal; 2019-04-01)
PROC: 30233N1 Transfusion of Nonautologous Red Blood Cells into Peripheral Vein, Percutaneous Approach (ICD-10-PCS; 2019-04-01)
DX: K70.31 Alcoholic cirrhosis of liver with ascites (principal); I85.11 Secondary esophageal varices with bleeding; K76.6 Portal hypertension; D62 Acute posthemorrhagic anemia; K31.89 Other diseases of stomach and duodenum
CPT/HCPCS: 36415; 36430; 43244; 70450; 71045; 74176; 80048; 80053; 80076; 81001; 82105; 82247; 82248; 82270; 82746; 83540; 83550; 83735; 85025; 85610; 86850; 86900; 86901; 86922; 87040; 87804; 87880; 99291; G0378; J3475; J3480; P9016

== ENCOUNTER 2019-09-10 14:56 | Inpatient (IN) | payer OTHER ==
[~2019-09-10] VITALS: Ht 167.6 cm; Wt 63.5 kg
[~2019-09-10 14:56] MED LIST changes: +PANT40TA PO; -PANT40TA25 PO; +PROP10TA72 PO
[2019-09-10 15:47] LABS: BASOPHILS % (AUTO) 0.7 % (0.0-5.0); EOSINOPHILS % (AUTO) 0.7 % (0.0-8.0); HEMATOCRIT 22.4 % (42-54); LYMPHOCYTES % (AUTO) 21.8 % (21.0-51.0); MEAN CORPUSCULAR HEMOGLOBIN 18.3 pg (27.0-33.0); MEAN CORPUSCULAR HGB CONC 27.7 g/dL (32.0-36.0); MEAN CORPUSCULAR VOLUME 66.3 fL (79-99); MONOCYTES % (AUTO) 9.6 % (3.0-13.0); NEUTROPHILS % (AUTO) 66.7 % (40.0-77.0); PLATELET COUNT (AUTO) 171 K/uL (130-400); RED BLOOD CELL COUNT(AUTO) 3.38 MIL/uL (4.50-6.20); RED CELL DISTRIBUTION WIDTH 21.2 % (11.0-15.5); WHITE BLOOD COUNT (AUTO) 4.3 K/uL (4.8-10.8)
[2019-09-10 15:57] LABS: CREATININE 0.8 mg/dL (0.5-1.5); POTASSIUM 3.4 mmol/L (3.5-5.1)
[2019-09-10 16:00] LABS: INR 1.23 (0.85-1.15); PARTIAL THROMBOPLASTIN TIME 27.8 SEC (26.3-35.5); PROTHROMBIN TIME 12.8 SEC (9.6-11.6)
[2019-09-10 16:02] LABS: ALBUMIN 2.8 g/dL (3.5-5.0); BILIRUBIN,TOTAL 3.1 mg/dL (0.2-1.0); TOTAL PROTEIN, SERUM 8.6 g/dL (6.0-8.3)
[2019-09-10] MEDS ORDERED: LIDOCAINE HCL-MPF 1% 2ML VIAL IV PRN (20:00)
[2019-09-10] MEDS ORDERED: POTASSIUM CHLORIDE 20MEQ/100ML 100 ML IV PRN (20:00)
[2019-09-10] MEDS ORDERED: FAMOTIDINE/PF 20 MG/2 ML VIAL IV ONE (20:12)
[2019-09-10] MEDS: FAMOTIDINE/PF 20 MG/2 ML VIAL IV SCH (21:00)
[2019-09-10 22:10] VITALS: BP 132/76
--- NOTE | 2019-09-10 22:30 | NUR ---
BLOOD TRANSFUSION PATIENT AWAKE AND ALERT. VOICES ALL NEEDS. NO COMPLAINTS OF PAIN VOICED AT THIS TIME. UNIT OF PACKED RBCS STARTED. NO ADVERSE REACTIONS NOTED AT THIS TIME. VITALS STABLE. AFEBRILE. TOLERATING WELL. NO SIGNS OF DISTRESS NOTED. CALL LIGHT WITHIN REACH. WILL CONTINUE TO BE OBSERVED. Addendum: 09/11/19 at 0407 by VERO SCHROEDER RN RN Amended: Links added.
[2019-09-10 22:45] VITALS: BP 122/79
[2019-09-10] MEDS ORDERED: LACTULOSE 20 GM/30 ML UDCUP PO PRN (23:30)
[2019-09-11] VITALS (10 sets, daily range): BP systolic 102–131; BP diastolic 63–83
[2019-09-11 05:28] LABS: HEMATOCRIT 24.1 % (42-54); MEAN CORPUSCULAR HEMOGLOBIN 19.4 pg (27.0-33.0); MEAN CORPUSCULAR HGB CONC 28.2 g/dL (32.0-36.0); MEAN CORPUSCULAR VOLUME 68.9 fL (79-99); PLATELET COUNT (AUTO) 142 K/uL (130-400); RED CELL DISTRIBUTION WIDTH 22.9 % (11.0-15.5)
[2019-09-11 05:39] LABS: CREATININE 0.6 mg/dL (0.5-1.5)
[2019-09-11] MEDS: FAMOTIDINE/PF 20 MG/2 ML VIAL IV SCH ×2 (09:52→21:05)
--- NOTE | 2019-09-11 12:02 | NUR ---
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 LING AT [employer], SUPPLIED W SELF PAY PACKET; DISCUSSED SSI CASE, WILL ASK FO RPT DYLAN FOR ASSESSMENT OF ADLS. SPOKE TO PT ABOUT LIVE DISEASE, /HAS HAD PARACENTESIS BEFORE. WILL RUN MELD SCORE AND POST TO CHART FOR MD TO REFERENCE IF NEEDED FOR DISCUSSION ABOUT TRANSPLANT LIST. P Addendum: 09/11/19 at 1207 by ESTEE GILES RN CM Amended: Links added.
[2019-09-11 13:08] LABS: HEMATOCRIT 28.1 % (42-54)
--- NOTE | 2019-09-11 14:15 | NUR ---
U/S GD PARACENTESIS PROCEDURE PERFORMED BY DR Tyson ENRIQUEZ. PUNCTURE SITE RIGHT LOWER QUADRANT AND PATIENT TOLERATED PROCEDURE WELL. TOTAL REMOVED 8 LITERS OF CLOUDY YELLOW FLUID. END OF PROCEDURE AT 1400. CATHETER REMOVED AND DRESSING APPLIED. NO BLEEDING NOTED. REPORT GIVEN TO Bev LACY RN AND PATIENT TRANSPORTED TO [facility] VIA W/C. AAO X3 WITH NO C/O PAIN. SPECIMEN SENT TO LAB.
[2019-09-11 16:22] LABS: APPEARANCE BODY FLUID CLEAR (CLEAR); COLOR,BODY FLUID YELLOW (LT YELLOW); SPECIMENTYPE,BODY FLUID ASCITES; TOTAL VOLUME,BODY FLUID 8000 mL
[2019-09-11 16:50] LABS: BODY FLUID RBC 125 /cu. mm.; BODY FLUID WBC 140 /cu. mm.
[2019-09-11 17:08] LABS: BF LYMPHOCYTE 41 %; BF MESOTHELIAL 27 %; BF OTHER CELLS 3
[2019-09-11] MEDS: ALBUMIN (HUMAN) 25% 200 ML IV PRN (19:33)
[2019-09-12 03:00] VITALS: BP 111/63
[2019-09-12 05:57] LABS: BASOPHILS % (AUTO) 0.9 % (0.0-5.0); EOSINOPHILS % (AUTO) 1.7 % (0.0-8.0); HEMATOCRIT 27.7 % (42-54); LYMPHOCYTES % (AUTO) 28.8 % (21.0-51.0); MEAN CORPUSCULAR HEMOGLOBIN 20.7 pg (27.0-33.0); MEAN CORPUSCULAR HGB CONC 29.6 g/dL (32.0-36.0); MEAN CORPUSCULAR VOLUME 69.8 fL (79-99); MONOCYTES % (AUTO) 12.6 % (3.0-13.0); NEUTROPHILS % (AUTO) 55.8 % (40.0-77.0); PLATELET COUNT (AUTO) 137 K/uL (130-400); RED BLOOD CELL COUNT(AUTO) 3.97 MIL/uL (4.50-6.20); RED CELL DISTRIBUTION WIDTH 24.9 % (11.0-15.5); WHITE BLOOD COUNT (AUTO) 4.6 K/uL (4.8-10.8)
[2019-09-12 06:14] LABS: BILIRUBIN,TOTAL 3.8 mg/dL (0.2-1.0); CREATININE 0.6 mg/dL (0.5-1.5); POTASSIUM 3.6 mmol/L (3.5-5.1); TOTAL PROTEIN, SERUM 7.7 g/dL (6.0-8.3)
[2019-09-12 08:00] VITALS: BP 97/58
[2019-09-12] MEDS ORDERED: MIDODRINE HCL 5 MG TABLET PO SCH (09:30)
[2019-09-12] MEDS ORDERED: PROP10TA72 PO (09:35)
[2019-09-12] MEDS ORDERED: PANT40TA PO (09:35)
[2019-09-12] MEDS ORDERED: FOLI0.8T PO (09:35)
[2019-09-12] MEDS ORDERED: THIA100T78 PO (09:35)
[2019-09-12] MEDS ORDERED: FERR324T4 PO (09:35)
[2019-09-12] MEDS: FAMOTIDINE/PF 20 MG/2 ML VIAL IV SCH (10:31)
[2019-09-12 11:46] VITALS: BP 105/65
--- NOTE | 2019-09-12 12:02 | NUR ---
RD NOTIFICATION DX CIRRHOSIS, CONSTIPATION. DIET: GI SOFT/ BLAND. PO INTAKE 100% AND HAS GOOD APPETITE. PT UNABLE TO PASS BM X 4 DAYS PREVIOUS TO ADMISSION HOWEVER IS NOW HAVING MULTIPLE BM. SKIN IS INTACT. LABS REVIEWED. MEDS REVIEWED. PT IS AWARE OF DIET AND NUTRITION RECOMMENDATIONS REGARDING HIS CJ CONDITION. RD RECOMMENDS TO ADD 2GMNA TO DIET ORDER MONITOR BM Addendum: 09/12/19 at [address] Amended: Links added.
== END 2019-09-12 16:45 | disposition home or self-care (01) | DRG 433 ==
LOC: EDH 14:56 → OBSVTOIN 14:57 → EDHIP 14:57 → 4CH 21:27
PROVIDERS: ADMIT Internal Medicine; ATTEND Internal Medicine
PROC: 30233N1 Transfusion of Nonautologous Red Blood Cells into Peripheral Vein, Percutaneous Approach (ICD-10-PCS; principal; 2019-09-11)
PROC: 0W9G3ZZ Drainage of Peritoneal Cavity, Percutaneous Approach (ICD-10-PCS; 2019-09-11)
DX: K70.31 Alcoholic cirrhosis of liver with ascites (principal); E44.0 Moderate protein-calorie malnutrition; D64.9 Anemia, unspecified; E87.6 Hypokalemia; R73.9 Hyperglycemia, unspecified; D72.819 Decreased white blood cell count, unspecified; K59.00 Constipation, unspecified; Z87.891 Personal history of nicotine dependence; Z68.22 Body mass index [BMI] 22.0-22.9, adult
CPT/HCPCS: 36415; 36430; 49083; 74018; 80048; 80053; 82140; 82270; 85014; 85018; 85025; 85027; 85610; 85730; 86850; 86900; 86901; 86922; 87071; 87205; 89051; G0378; J3480; J3490; P9016; P9046

== ENCOUNTER 2020-04-17 00:14 | Emergency (ER) | payer OTHER ==
[~2020-04-17 00:14] MED LIST changes: +FOLI0.8T PO
[2020-04-17 01:26] LABS: BASOPHILS % (AUTO) 1.2 % (0.0-5.0); EOSINOPHILS % (AUTO) 0.9 % (0.0-8.0); LYMPHOCYTES % (AUTO) 37.3 % (21.0-51.0); MEAN CORPUSCULAR HEMOGLOBIN 25.7 pg (27.0-33.0); MEAN CORPUSCULAR HGB CONC 32.4 g/dL (32.0-36.0); MEAN CORPUSCULAR VOLUME 79.2 fL (79-99); MONOCYTES % (AUTO) 18.5 % (3.0-13.0); NEUTROPHILS % (AUTO) 41.8 % (40.0-77.0); PLATELET COUNT (AUTO) 71 K/uL (130-400); RED BLOOD CELL COUNT(AUTO) 3.66 MIL/uL (4.50-6.20); RED CELL DISTRIBUTION WIDTH 19.2 % (11.0-15.5); WHITE BLOOD COUNT (AUTO) 3.4 K/uL (4.8-10.8)
[2020-04-17 01:27] LABS: APPEARANCE,URINE Clear (CLEAR); BILIRUBIN,URINE Negative (NEGATIVE); COLOR,URINE Yellow (YELLOW); GLUCOSE, URINE (UA) Negative (NEGATIVE); KETONES,URINE Negative (NEGATIVE); LEUKOCYTE ESTERASE ,URINE Negative (NEGATIVE); NITRATE,URINE Negative (NEGATIVE); OCCULT BLOOD,URINE Negative (NEGATIVE); PROTEIN,URINE Negative (NEGATIVE); UROBILINOGEN,URINE 0.2 mg/dL (0.2-1.0)
[2020-04-17 01:37] LABS: CREATININE 0.6 mg/dL (0.5-1.5); POTASSIUM 3.6 mmol/L (3.5-5.1)
[2020-04-17 01:44] LABS: ALBUMIN 3.2 g/dL (3.5-5.0); BILIRUBIN,TOTAL 1.4 mg/dL (0.2-1.0)
[2020-04-17] MEDS ORDERED: FUROSEMIDE 10 MG/ML 2ML VIAL ONE (01:58)
[2020-04-17 02:00] LABS: B-TYPE NATRIURETIC PEPTIDE 18 pg/mL (0-100)
== END 2020-04-17 03:13 | disposition home or self-care (01) ==
LOC: EDH 00:14
DX: R18.8 Other ascites (principal); R06.00 Dyspnea, unspecified; R19.7 Diarrhea, unspecified; Z72.0 Tobacco use
CPT/HCPCS: 36415; 71045; 80053; 81003; 82140; 83690; 83880; 85025; 96374; 99284; J1940

== ENCOUNTER 2022-08-31 10:10 | Emergency (ER) | payer OTHER ==
[~2022-08-31] VITALS: Ht 167.6 cm; Wt 62.6 kg
[~2022-08-31 10:10] MED LIST changes: -FOLI0.8T PO; +FOLI0.8T3 PO
[2022-08-31] MEDS ORDERED: ALBUMIN (HUMAN) 25% 100 ML IV ONE (10:57)
[2022-08-31 11:07] LABS: BASOPHILS % (AUTO) 0.5 % (0.0-5.0); EOSINOPHILS % (AUTO) 1.4 % (0.0-8.0); HEMATOCRIT 39.6 % (42-54); LYMPHOCYTES % (AUTO) 20.9 % (21.0-51.0); MEAN CORPUSCULAR HEMOGLOBIN 30.8 pg (27.0-33.0); MEAN CORPUSCULAR HGB CONC 33.1 g/dL (32.0-36.0); MONOCYTES % (AUTO) 16.5 % (3.0-13.0); NEUTROPHILS % (AUTO) 59.3 % (40.0-77.0); PLATELET COUNT (AUTO) 85 K/uL (130-400); RED BLOOD CELL COUNT(AUTO) 4.26 MIL/uL (4.50-6.20); RED CELL DISTRIBUTION WIDTH 15.4 % (11.0-15.5); WHITE BLOOD COUNT (AUTO) 3.6 K/uL (4.8-10.8)
[2022-08-31 11:18] LABS: INR 1.21 (0.85-1.15)
[2022-08-31 11:19] LABS: PARTIAL THROMBOPLASTIN TIME 31.6 SEC (26.3-35.5)
[2022-08-31 11:20] LABS: CREATININE 0.6 mg/dL (0.5-1.5); POTASSIUM 3.5 mmol/L (3.5-5.1)
[2022-08-31 11:24] LABS: TOTAL PROTEIN, SERUM 8.4 g/dL (6.0-8.3)
[2022-08-31] MEDS ORDERED: LIDOCAINE HCL MPF 1% 5ML VIAL ONE (11:30)
[2022-08-31] MEDS ORDERED: ALBUMIN (HUMAN) 25% 100 ML IV SCH (11:50)
[2022-08-31] MEDS ORDERED: CIPR-279 PO (12:27)
[2022-08-31] MEDS ORDERED: ALBUMIN (HUMAN) 25% 50 ML IV SCH (12:30)
[2022-08-31 12:53] VITALS: BP 108/66
== END 2022-08-31 13:16 | disposition home or self-care (01) ==
LOC: EDH 10:10
DX: R18.8 Other ascites (principal); Z79.899 Other long term (current) drug therapy
CPT/HCPCS: 49083; 99285; 96365; 80053; 85025; 85610; 85730; 36415; P9047; J3490; C1729

== ENCOUNTER → 2022-11-18 | Outpatient (CLI) | payer OTHER ==
[~2022-11-18] MED LIST changes: +ALBUMIN (HUMAN) 25% 200 ML IV SCH; +CIPR-279 PO; +LIDOCAINE HCL 1% 20 ML VIAL ONE
[2022-11-18 09:12] LABS: INR 1.21 (0.85-1.15)
[2022-11-18 09:13] LABS: PARTIAL THROMBOPLASTIN TIME 33.6 SEC (26.3-35.5)
[2022-11-18 13:08] LABS: BODY FLUID WBC 110 /cu. mm.
[2022-11-18 13:11] LABS: BODY FLUID RBC 359 /cu. mm.
[2022-11-18 14:19] LABS: BF LYMPHOCYTE 11 %; BF MESOTHELIAL 82 %; BF MONOCYTE 7 %
[2022-11-18 14:31] LABS: APPEARANCE BODY FLUID CLEAR (CLEAR); COLOR,BODY FLUID YELLOW (LT YELLOW); SPECIMENTYPE,BODY FLUID ASCITES
[2022-11-18 14:33] LABS: TOTAL VOLUME,BODY FLUID 12200 mL
== END | disposition home or self-care (01) ==
LOC: RAH 08:12
PROVIDERS: ATTEND Internal Medicine
DX: R18.8 Other ascites (principal); Z79.01 Long term (current) use of anticoagulants; Z79.899 Other long term (current) drug therapy
CPT/HCPCS: 49083; 89051; 85610; 85730; 87071; 87205; 36415; P9046; C1729; 96365

== ENCOUNTER 2022-12-26 00:39 | Emergency (ER) | payer OTHER ==
[~2022-12-26] VITALS: Ht 167.6 cm; Wt 63.1 kg
[~2022-12-26 00:39] MED LIST changes: -ALBUMIN (HUMAN) 25% 200 ML IV SCH; -LIDOCAINE HCL 1% 20 ML VIAL ONE
[2022-12-26 01:27] LABS: BASOPHILS % (AUTO) 0.7 % (0.0-5.0); HEMATOCRIT 39.4 % (42-54); LYMPHOCYTES % (AUTO) 34.1 % (21.0-51.0); MEAN CORPUSCULAR HEMOGLOBIN 30.8 pg (27.0-33.0); MEAN CORPUSCULAR HGB CONC 33.8 g/dL (32.0-36.0); MEAN CORPUSCULAR VOLUME 91.2 fL (79-99); MONOCYTES % (AUTO) 12.7 % (3.0-13.0); NEUTROPHILS % (AUTO) 50.3 % (40.0-77.0); PLATELET COUNT (AUTO) 157 K/uL (130-400); RED BLOOD CELL COUNT(AUTO) 4.32 MIL/uL (4.50-6.20); RED CELL DISTRIBUTION WIDTH 15.2 % (11.0-15.5); WHITE BLOOD COUNT (AUTO) 4.1 K/uL (4.8-10.8)
[2022-12-26 01:43] LABS: INR 1.1 (0.85-1.15); PROTHROMBIN TIME 11.9 SEC (9.6-11.6)
[2022-12-26 02:02] LABS: CREATININE 0.5 mg/dL (0.5-1.5); POTASSIUM 3.7 mmol/L (3.5-5.1)
[2022-12-26 02:06] LABS: ALBUMIN 3.1 g/dL (3.5-5.0); TOTAL PROTEIN, SERUM 8.8 g/dL (6.0-8.3)
[2022-12-26 02:31] VITALS: BP 97/70
== END 2022-12-26 02:45 | disposition home or self-care (01) ==
LOC: EDH 00:39
DX: K70.31 Alcoholic cirrhosis of liver with ascites (principal)
CPT/HCPCS: 36415; 71045; 74176; 80053; 85025; 85610; 85730

== ENCOUNTER 2022-12-27 07:55 | Emergency (ER) | payer OTHER ==
[~2022-12-27] VITALS: Ht 167.6 cm; Wt 59.4 kg
[2022-12-27 07:59] VITALS: BP 113/80
[2022-12-27 08:48] LABS: BASOPHILS % (AUTO) 1.3 % (0.0-5.0); EOSINOPHILS % (AUTO) 1.9 % (0.0-8.0); HEMATOCRIT 39.4 % (42-54); LYMPHOCYTES % (AUTO) 30.9 % (21.0-51.0); MEAN CORPUSCULAR HEMOGLOBIN 30.5 pg (27.0-33.0); MEAN CORPUSCULAR VOLUME 92.5 fL (79-99); MONOCYTES % (AUTO) 15.5 % (3.0-13.0); NEUTROPHILS % (AUTO) 50.1 % (40.0-77.0); PLATELET COUNT (AUTO) 156 K/uL (130-400); RED BLOOD CELL COUNT(AUTO) 4.26 MIL/uL (4.50-6.20); RED CELL DISTRIBUTION WIDTH 15.6 % (11.0-15.5); WHITE BLOOD COUNT (AUTO) 3.2 K/uL (4.8-10.8)
[2022-12-27 08:54] LABS: INR 1.11 (0.85-1.15)
[2022-12-27 08:55] LABS: PARTIAL THROMBOPLASTIN TIME 34.8 SEC (26.3-35.5)
[2022-12-27 08:57] LABS: CREATININE 0.5 mg/dL (0.5-1.5); POTASSIUM 3.4 mmol/L (3.5-5.1)
[2022-12-27 09:01] LABS: TOTAL PROTEIN, SERUM 8.5 g/dL (6.0-8.3)
== END 2022-12-27 10:53 | disposition left against medical advice (07) ==
LOC: EDH 07:55
DX: K70.31 Alcoholic cirrhosis of liver with ascites (principal); Z79.899 Other long term (current) drug therapy
CPT/HCPCS: 36415; 80053; 82140; 83690; 85025; 85610; 85730

== ENCOUNTER → 2023-01-03 | Outpatient (CLI) | payer OTHER ==
[~2023-01-03] MED LIST changes: +ALBUMIN (HUMAN) 25% 200 ML IV SCH; +LIDOCAINE HCL 1% 20 ML VIAL ONE
[2023-01-03 13:18] LABS: APPEARANCE BODY FLUID CLEAR (CLEAR); COLOR,BODY FLUID YELLOW (LT YELLOW); SPECIMENTYPE,BODY FLUID ASCITES; TOTAL VOLUME,BODY FLUID 13500 mL
[2023-01-03 13:27] LABS: BF LYMPHOCYTE 28 %; BF MESOTHELIAL 70 %; BF MONOCYTE 2 %
[2023-01-03 13:35] LABS: BODY FLUID RBC 268 /cu. mm.; BODY FLUID WBC 162 /cu. mm.
== END | disposition home or self-care (01) ==
LOC: RAH 07:31
PROVIDERS: ATTEND Internal Medicine
DX: K70.31 Alcoholic cirrhosis of liver with ascites (principal); F17.200 Nicotine dependence, unspecified, uncomplicated; Z79.01 Long term (current) use of anticoagulants; Z79.899 Other long term (current) drug therapy; Z72.89 Other problems related to lifestyle
CPT/HCPCS: 49083; 89051; 87071; 87205; P9046; C1729; 96365

== ENCOUNTER → 2023-01-31 | Outpatient (CLI) | payer OTHER, MEDICARE ==
[2023-01-31 09:40] LABS: BASOPHILS % (AUTO) 0.7 % (0.0-5.0); EOSINOPHILS % (AUTO) 1.7 % (0.0-8.0); HEMATOCRIT 36.7 % (42-54); LYMPHOCYTES % (AUTO) 32.5 % (21.0-51.0); MEAN CORPUSCULAR HEMOGLOBIN 30.9 pg (27.0-33.0); MEAN CORPUSCULAR HGB CONC 33.5 g/dL (32.0-36.0); MEAN CORPUSCULAR VOLUME 92.2 fL (79-99); MONOCYTES % (AUTO) 18.2 % (3.0-13.0); NEUTROPHILS % (AUTO) 46.6 % (40.0-77.0); PLATELET COUNT (AUTO) 111 K/uL (130-400); RED BLOOD CELL COUNT(AUTO) 3.98 MIL/uL (4.50-6.20); RED CELL DISTRIBUTION WIDTH 15.3 % (11.0-15.5); WHITE BLOOD COUNT (AUTO) 2.9 K/uL (4.8-10.8)
[2023-01-31 09:50] LABS: INR 1.13 (0.85-1.15); PROTHROMBIN TIME 12.2 SEC (9.6-11.6)
[2023-01-31 09:51] LABS: PARTIAL THROMBOPLASTIN TIME 33.1 SEC (26.3-35.5)
[2023-01-31 09:57] LABS: CREATININE 0.5 mg/dL (0.5-1.5); POTASSIUM 3.6 mmol/L (3.5-5.1); TOTAL PROTEIN, SERUM 7.9 g/dL (6.0-8.3)
[2023-01-31 10:33] LABS: EOSINOPHILS % (MANUAL) 1 % (1-6); LYMPHOCYTES % (MANUAL) 43 % (22-44); MAN.DIFF COMMENT-IMPRESSION MANUAL DIFFERENTIAL; MONOCYTES % (MANUAL) 9 % (2-9); SEGMENTED NEUTROPHILS % 47 % (40-70)
[2023-01-31 10:34] LABS: PLATELET MORPHOLOGY COMMENT SLIGHTLY DECREASED
[2023-01-31 14:29] LABS: ALBUMIN,BODY FLUID 1.6 g/dL
[2023-01-31 15:12] LABS: BODY FLUID RBC 567 /cu. mm.; BODY FLUID WBC 233 /cu. mm.
[2023-01-31 15:45] LABS: APPEARANCE BODY FLUID SLIGHTLY CLOUDY (CLEAR); COLOR,BODY FLUID YELLOW (LT YELLOW); SPECIMENTYPE,BODY FLUID ASCITES
[2023-01-31 15:46] LABS: TOTAL VOLUME,BODY FLUID 11000 mL
[2023-01-31 16:04] LABS: BF LYMPHOCYTE 15 %; BF OTHER CELLS 3
== END | disposition home or self-care (01) ==
LOC: RAH 08:35
PROVIDERS: ATTEND Internal Medicine
DX: K70.31 Alcoholic cirrhosis of liver with ascites (principal); D64.9 Anemia, unspecified; K21.00 Gastro-esophageal reflux disease with esophagitis, without bleeding; F17.210 Nicotine dependence, cigarettes, uncomplicated; I85.00 Esophageal varices without bleeding; Z98.890 Other specified postprocedural states; Z72.89 Other problems related to lifestyle; Z79.01 Long term (current) use of anticoagulants; Z79.899 Other long term (current) drug therapy
CPT/HCPCS: 49083; 84157; 80053; 85025; 89051; 85610; 85730; 87071; 87076; 87205; 82042; 36415; P9046; C1729; 96365

== ENCOUNTER → 2023-02-23 | Outpatient (CLI) | payer OTHER, MEDICARE ==
[~2023-02-23] MED LIST changes: -LIDOCAINE HCL 1% 20 ML VIAL ONE
[2023-02-23 11:07] LABS: BASOPHILS % (AUTO) 0.8 % (0.0-5.0); EOSINOPHILS % (AUTO) 0.2 % (0.0-8.0); HEMATOCRIT 38.9 % (42-54); LYMPHOCYTES % (AUTO) 10.7 % (21.0-51.0); MEAN CORPUSCULAR HEMOGLOBIN 31.2 pg (27.0-33.0); MEAN CORPUSCULAR HGB CONC 33.4 g/dL (32.0-36.0); MEAN CORPUSCULAR VOLUME 93.3 fL (79-99); MONOCYTES % (AUTO) 10.5 % (3.0-13.0); NEUTROPHILS % (AUTO) 77.3 % (40.0-77.0); PLATELET COUNT (AUTO) 163 K/uL (130-400); RED BLOOD CELL COUNT(AUTO) 4.17 MIL/uL (4.50-6.20); RED CELL DISTRIBUTION WIDTH 14.8 % (11.0-15.5); WHITE BLOOD COUNT (AUTO) 6.5 K/uL (4.8-10.8)
[2023-02-23 11:22] LABS: ALBUMIN 2.8 g/dL (3.5-5.0); CREATININE 0.5 mg/dL (0.5-1.5); POTASSIUM 3.4 mmol/L (3.5-5.1); TOTAL PROTEIN, SERUM 7.9 g/dL (6.0-8.3)
[2023-02-23 11:38] LABS: INR 1.06 (0.85-1.15); PROTHROMBIN TIME 12.2 SEC (9.6-11.6)
[2023-02-23 11:39] LABS: PARTIAL THROMBOPLASTIN TIME 31.7 SEC (26.3-35.5)
[2023-02-23 14:19] LABS: ALBUMIN,BODY FLUID 1.3 g/dL
[2023-02-23 14:47] LABS: BODY FLUID RBC 355 /cu. mm.; BODY FLUID WBC 152 /cu. mm.
[2023-02-23 15:16] LABS: APPEARANCE BODY FLUID SLIGHTLY CLOUDY (CLEAR); COLOR,BODY FLUID YELLOW (LT YELLOW); SPECIMENTYPE,BODY FLUID ASCITES; TOTAL VOLUME,BODY FLUID 10500 mL
[2023-02-23 16:19] LABS: BF LYMPHOCYTE 18 %; BF OTHER CELLS 5
== END ==
LOC: RAH 08:47
PROVIDERS: ATTEND Internal Medicine Gastroenterology
DX: R18.8 Other ascites (principal); F17.210 Nicotine dependence, cigarettes, uncomplicated; Z79.2 Long term (current) use of antibiotics; Z79.899 Other long term (current) drug therapy; Z72.89 Other problems related to lifestyle
CPT/HCPCS: 49083; 84157; 80053; 85025; 89051; 85610; 85730; 87071; 87076; 87205; 82105; 82042; 36415; P9046; C1729

== ENCOUNTER → 2023-03-25 | Outpatient (CLI) | payer OTHER, MEDICARE ==
[~2023-03-25] MED LIST changes: +ALBUMIN (HUMAN) 25% 200 ML IV ONE; -ALBUMIN (HUMAN) 25% 200 ML IV SCH
[2023-03-25 14:02] LABS: ALBUMIN,BODY FLUID 1.1 g/dL; TOTAL PROTEIN,BODY FLUID 2.7 g/dL
[2023-03-25 14:24] LABS: BODY FLUID RBC 92 /cu. mm.; BODY FLUID WBC 277 /cu. mm.
[2023-03-25 15:29] LABS: APPEARANCE BODY FLUID SLIGHTLY CLOUDY (CLEAR); COLOR,BODY FLUID YELLOW (LT YELLOW); SPECIMENTYPE,BODY FLUID ASCITES; TOTAL VOLUME,BODY FLUID 9000 mL
[2023-03-25 15:47] LABS: BF LYMPHOCYTE 25 %; BF MACROPHAGE 69; BF MONOCYTE 2 %; BF TOTAL CELLS COUNTED 100
== END | disposition home or self-care (01) ==
LOC: RAH 09:00
PROVIDERS: ATTEND Internal Medicine Gastroenterology
DX: K70.31 Alcoholic cirrhosis of liver with ascites (principal); K21.00 Gastro-esophageal reflux disease with esophagitis, without bleeding; I85.00 Esophageal varices without bleeding; D64.9 Anemia, unspecified; Z79.01 Long term (current) use of anticoagulants; Z79.899 Other long term (current) drug therapy; Z72.89 Other problems related to lifestyle; Z98.890 Other specified postprocedural states
CPT/HCPCS: 49083; 84157; 89051; 87071; 87076; 87205; 82042; P9046; C1729

== ENCOUNTER → 2023-04-15 | Outpatient (CLI) | payer OTHER, MEDICARE ==
[~2023-04-15] MED LIST changes: -ALBUMIN (HUMAN) 25% 200 ML IV ONE; +ALBUMIN (HUMAN) 25% 200 ML IV SCH
[2023-04-15 11:33] LABS: BASOPHILS # (AUTO) 0.04 K/uL (0.00-0.20); EOSINOPHILS # (AUTO) 0.01 K/uL (0.00-0.70); EOSINOPHILS % (AUTO) 0.2 % (0.0-8.0); HEMATOCRIT 37.6 % (42-54); IMMATURE GRANULOCYTE ABSOLUTE 0.02 K/uL (0-1); LYMPHOCYTES # (AUTO) 0.7 K/uL (1.0-4.8); LYMPHOCYTES % (AUTO) 17.1 % (21.0-51.0); MEAN CORPUSCULAR HEMOGLOBIN 31.7 pg (27.0-33.0); MEAN CORPUSCULAR HGB CONC 33.8 g/dL (32.0-36.0); MEAN CORPUSCULAR VOLUME 93.8 fL (79-99); MONOCYTES # (AUTO) 0.5 K/uL (0.1-1.0); MONOCYTES % (AUTO) 12.2 % (3.0-13.0); NEUTROPHILS # (AUTO) 2.8 K/uL (1.8-7.7); PLATELET COUNT (AUTO) 141 K/uL (130-400); RED BLOOD CELL COUNT(AUTO) 4.01 MIL/uL (4.50-6.20); RED CELL DISTRIBUTION WIDTH 15.1 % (11.0-15.5); WHITE BLOOD COUNT (AUTO) 4.1 K/uL (4.8-10.8)
[2023-04-15 11:42] LABS: INR 1.13 (0.85-1.15)
[2023-04-15 11:44] LABS: PARTIAL THROMBOPLASTIN TIME 33.6 SEC (26.3-35.5)
[2023-04-15 12:04] LABS: ALBUMIN 2.8 g/dL (3.5-5.0); BILIRUBIN,TOTAL 2.1 mg/dL (0.2-1.0); CREATININE 0.5 mg/dL (0.5-1.5); POTASSIUM 3.6 mmol/L (3.5-5.1); TOTAL PROTEIN, SERUM 8.2 g/dL (6.0-8.3)
[2023-04-15 16:54] LABS: ALBUMIN,BODY FLUID 1.2 g/dL; TOTAL PROTEIN,BODY FLUID 2.9 g/dL
[2023-04-15 17:22] LABS: APPEARANCE BODY FLUID CLEAR (CLEAR); COLOR,BODY FLUID YELLOW (LT YELLOW); SPECIMENTYPE,BODY FLUID ASCITES; TOTAL VOLUME,BODY FLUID 12200 mL
[2023-04-15 17:34] LABS: BODY FLUID RBC 210 /cu. mm.; BODY FLUID WBC 130 /cu. mm.
[2023-04-15 17:40] LABS: BF LYMPHOCYTE 50 %; BF MACROPHAGE 44; BF MESOTHELIAL 3 %; BF TOTAL CELLS COUNTED 100
== END | disposition home or self-care (01) ==
LOC: RAH 09:44
PROVIDERS: ATTEND Internal Medicine Gastroenterology
DX: K70.31 Alcoholic cirrhosis of liver with ascites (principal); K21.00 Gastro-esophageal reflux disease with esophagitis, without bleeding; I85.00 Esophageal varices without bleeding; K64.0 First degree hemorrhoids; K29.50 Unspecified chronic gastritis without bleeding; Z79.01 Long term (current) use of anticoagulants; Z79.899 Other long term (current) drug therapy; Z86.010 Personal history of colon polyps; Z98.890 Other specified postprocedural states
CPT/HCPCS: 49083; 84157; 80053; 85025; 89051; 85610; 85730; 87071; 87076; 87205; 82042; 36415; 88108; P9046; C1729

== ENCOUNTER → 2023-04-28 | Outpatient (CLI) | payer OTHER, MEDICARE ==
[2023-04-28 14:37] LABS: ALBUMIN,BODY FLUID 1.3 g/dL
[2023-04-28 14:45] LABS: BODY FLUID RBC 2741 /cu. mm.; BODY FLUID WBC 296 /cu. mm.
[2023-04-28 14:57] LABS: APPEARANCE BODY FLUID CLEAR (CLEAR); COLOR,BODY FLUID YELLOW (LT YELLOW); SPECIMENTYPE,BODY FLUID ASCITES; TOTAL VOLUME,BODY FLUID 7200 mL
[2023-04-28 16:02] LABS: BF LYMPHOCYTE 31 %; BF MACROPHAGE 24; BF MESOTHELIAL 43 %; BF MONOCYTE 1 %; BF OTHER CELLS 1; BF TOTAL CELLS COUNTED 100
== END | disposition home or self-care (01) ==
LOC: RAH 09:13
PROVIDERS: ATTEND Internal Medicine Gastroenterology
DX: K70.31 Alcoholic cirrhosis of liver with ascites (principal); K21.00 Gastro-esophageal reflux disease with esophagitis, without bleeding; E87.6 Hypokalemia; I85.00 Esophageal varices without bleeding; K29.50 Unspecified chronic gastritis without bleeding; K64.0 First degree hemorrhoids; Z79.01 Long term (current) use of anticoagulants; Z79.899 Other long term (current) drug therapy; Z87.891 Personal history of nicotine dependence; Z86.010 Personal history of colon polyps
CPT/HCPCS: 49083; 84157; 89051; 87071; 87076; 87205; 82042; 88108; P9046; C1729; 96365

== ENCOUNTER → 2023-05-12 | Outpatient (CLI) | payer OTHER, MEDICARE ==
[2023-05-12 14:16] LABS: ALBUMIN,BODY FLUID 1.3 g/dL; TOTAL PROTEIN,BODY FLUID 2.8 g/dL
[2023-05-12 14:41] LABS: SPECIMENTYPE,BODY FLUID ASCITES; TOTAL VOLUME,BODY FLUID 9600 mL
[2023-05-12 14:42] LABS: APPEARANCE BODY FLUID SLIGHTLY CLOUDY (CLEAR); COLOR,BODY FLUID YELLOW (LT YELLOW)
[2023-05-12 14:57] LABS: BF LYMPHOCYTE 21 %; BF MESOTHELIAL 65 %; BF MONOCYTE 11 %; BF TOTAL CELLS COUNTED 100
[2023-05-12 15:04] LABS: BODY FLUID RBC 1301 /cu. mm.; BODY FLUID WBC 39 /cu. mm.
== END | disposition home or self-care (01) ==
LOC: RAH 08:42
PROVIDERS: ATTEND Internal Medicine Gastroenterology
DX: K70.31 Alcoholic cirrhosis of liver with ascites (principal); E87.6 Hypokalemia; I85.00 Esophageal varices without bleeding; K64.0 First degree hemorrhoids; K29.50 Unspecified chronic gastritis without bleeding; Z87.891 Personal history of nicotine dependence; Z86.010 Personal history of colon polyps; Z98.890 Other specified postprocedural states; Z79.01 Long term (current) use of anticoagulants; Z79.899 Other long term (current) drug therapy
CPT/HCPCS: 49083; 84157; 89051; 87071; 87076; 87205; 82042; P9046; C1729

== ENCOUNTER → 2023-05-26 | Outpatient (CLI) | payer OTHER, MEDICARE ==
[~2023-05-26] MED LIST changes: +ALBUMIN (HUMAN) 25% 200 ML IV ONE; -ALBUMIN (HUMAN) 25% 200 ML IV SCH
[2023-05-26 09:49] LABS: BASOPHILS # (AUTO) 0.04 K/uL (0.00-0.20); EOSINOPHILS # (AUTO) 0.05 K/uL (0.00-0.70); EOSINOPHILS % (AUTO) 1.3 % (0.0-8.0); IMMATURE GRANULOCYTE ABSOLUTE 0.02 K/uL (0-1); LYMPHOCYTES # (AUTO) 0.4 K/uL (1.0-4.8); LYMPHOCYTES % (AUTO) 10.5 % (21.0-51.0); MEAN CORPUSCULAR HEMOGLOBIN 32.4 pg (27.0-33.0); MEAN CORPUSCULAR VOLUME 95.2 fL (79-99); MONOCYTES # (AUTO) 0.5 K/uL (0.1-1.0); NEUTROPHILS # (AUTO) 2.9 K/uL (1.8-7.7); NEUTROPHILS % (AUTO) 73.7 % (40.0-77.0); PLATELET COUNT (AUTO) 141 K/uL (130-400); RED BLOOD CELL COUNT(AUTO) 4.41 MIL/uL (4.50-6.20); RED CELL DISTRIBUTION WIDTH 13.9 % (11.0-15.5)
[2023-05-26 09:59] LABS: INR 0.98 (0.85-1.15); PROTHROMBIN TIME 11.4 SEC (9.6-11.6)
[2023-05-26 10:04] LABS: ALBUMIN 3.2 g/dL (3.5-5.0); BILIRUBIN,TOTAL 2.8 mg/dL (0.2-1.0); CREATININE 0.6 mg/dL (0.5-1.5); POTASSIUM 4.4 mmol/L (3.5-5.1); TOTAL PROTEIN, SERUM 8.5 g/dL (6.0-8.3)
[2023-05-26 14:03] LABS: ALBUMIN,BODY FLUID 1.4 g/dL; TOTAL PROTEIN,BODY FLUID 2.8 g/dL
[2023-05-26 14:43] LABS: APPEARANCE BODY FLUID CLEAR (CLEAR); COLOR,BODY FLUID YELLOW (LT YELLOW); SPECIMENTYPE,BODY FLUID ASCITES; TOTAL VOLUME,BODY FLUID 9500 mL
[2023-05-26 15:04] LABS: BODY FLUID RBC 1439 /cu. mm.; BODY FLUID WBC 187 /cu. mm.
[2023-05-26 15:35] LABS: BF LYMPHOCYTE 11 %; BF MACROPHAGE 83; BF TOTAL CELLS COUNTED 100
== END | disposition home or self-care (01) ==
LOC: RAH 08:35
PROVIDERS: ATTEND Internal Medicine Gastroenterology
DX: K70.31 Alcoholic cirrhosis of liver with ascites (principal); I85.10 Secondary esophageal varices without bleeding; K21.00 Gastro-esophageal reflux disease with esophagitis, without bleeding; K29.50 Unspecified chronic gastritis without bleeding; E87.6 Hypokalemia; K64.0 First degree hemorrhoids; Z79.01 Long term (current) use of anticoagulants; Z86.010 Personal history of colon polyps
CPT/HCPCS: 49083; 84157; 80053; 85025; 89051; 85610; 85730; 87071; 87205; 82042; 36415; 88305; 88112; P9046; C1729; 96365

== ENCOUNTER → 2023-06-09 | Outpatient (CLI) | payer OTHER, MEDICARE ==
[~2023-06-09] MED LIST changes: -ALBUMIN (HUMAN) 25% 200 ML IV ONE; +ALBUMIN (HUMAN) 25% 200 ML IV SCH
[2023-06-09 13:41] LABS: BODY FLUID RBC 2392 /cu. mm.; BODY FLUID WBC 221 /cu. mm.
[2023-06-09 13:42] LABS: APPEARANCE BODY FLUID SLIGHTLY CLOUDY (CLEAR); COLOR,BODY FLUID YELLOW (LT YELLOW); SPECIMENTYPE,BODY FLUID ASCITES
[2023-06-09 13:51] LABS: ALBUMIN,BODY FLUID 1.3 g/dL; TOTAL PROTEIN,BODY FLUID 2.8 g/dL
[2023-06-09 13:54] LABS: TOTAL VOLUME,BODY FLUID 11000 mL
[2023-06-09 14:05] LABS: BF LYMPHOCYTE 38 %; BF MACROPHAGE 41; BF MESOTHELIAL 14 %; BF MONOCYTE 7 %; BF TOTAL CELLS COUNTED 100
== END | disposition home or self-care (01) ==
LOC: RAH 09:57
PROVIDERS: ATTEND Internal Medicine Gastroenterology
DX: K70.31 Alcoholic cirrhosis of liver with ascites (principal); I85.10 Secondary esophageal varices without bleeding; K21.00 Gastro-esophageal reflux disease with esophagitis, without bleeding; E87.6 Hypokalemia; K64.0 First degree hemorrhoids; Z86.010 Personal history of colon polyps; Z79.899 Other long term (current) drug therapy; Z79.01 Long term (current) use of anticoagulants
CPT/HCPCS: 49083; 84157; 89051; 87071; 87076; 87205; 82042; 88305; 88312; P9046; C1729; 96365

== ENCOUNTER → 2023-06-23 | Outpatient (CLI) | payer OTHER ==
[2023-06-23 15:32] LABS: APPEARANCE BODY FLUID CLEAR (CLEAR); SPECIMENTYPE,BODY FLUID ASCITES
[2023-06-23 15:33] LABS: COLOR,BODY FLUID YELLOW (LT YELLOW); TOTAL VOLUME,BODY FLUID 8900 mL
[2023-06-23 15:44] LABS: BODY FLUID RBC 885 /cu. mm.; BODY FLUID WBC 171 /cu. mm.
[2023-06-23 16:38] LABS: BF LYMPHOCYTE 67 %; BF MACROPHAGE 5; BF MESOTHELIAL 13 %; BF MONOCYTE 13 %; BF TOTAL CELLS COUNTED 100
== END | disposition home or self-care (01) ==
LOC: RAH 09:23
PROVIDERS: ATTEND Internal Medicine Gastroenterology
DX: K70.31 Alcoholic cirrhosis of liver with ascites (principal); I85.10 Secondary esophageal varices without bleeding; K21.00 Gastro-esophageal reflux disease with esophagitis, without bleeding; E87.6 Hypokalemia; K64.0 First degree hemorrhoids; Z86.010 Personal history of colon polyps; Z79.899 Other long term (current) drug therapy; Z79.01 Long term (current) use of anticoagulants
CPT/HCPCS: 49083; 89051; 82105; 36415; P9046; C1729; 96365

== ENCOUNTER → 2023-07-07 | Outpatient (CLI) | payer MEDICARE, OTHER ==
[2023-07-07 11:06] LABS: BASOPHILS # (AUTO) 0.03 K/uL (0.00-0.20); BASOPHILS % (AUTO) 0.9 % (0.0-5.0); EOSINOPHILS # (AUTO) 0.03 K/uL (0.00-0.70); EOSINOPHILS % (AUTO) 0.9 % (0.0-8.0); HEMATOCRIT 37.2 % (42-54); IMMATURE GRANULOCYTE ABSOLUTE 0.01 K/uL (0-1); LYMPHOCYTES # (AUTO) 0.6 K/uL (1.0-4.8); LYMPHOCYTES % (AUTO) 16.8 % (21.0-51.0); MEAN CORPUSCULAR HEMOGLOBIN 32.3 pg (27.0-33.0); MEAN CORPUSCULAR HGB CONC 34.4 g/dL (32.0-36.0); MEAN CORPUSCULAR VOLUME 93.9 fL (79-99); MONOCYTES # (AUTO) 0.6 K/uL (0.1-1.0); MONOCYTES % (AUTO) 17.1 % (3.0-13.0); NEUTROPHILS # (AUTO) 2.1 K/uL (1.8-7.7); PLATELET COUNT (AUTO) 152 K/uL (130-400); RED BLOOD CELL COUNT(AUTO) 3.96 MIL/uL (4.50-6.20); RED CELL DISTRIBUTION WIDTH 12.9 % (11.0-15.5); WHITE BLOOD COUNT (AUTO) 3.3 K/uL (4.8-10.8)
[2023-07-07 11:16] LABS: ALBUMIN 2.8 g/dL (3.5-5.0); BILIRUBIN,TOTAL 1.2 mg/dL (0.2-1.0); CREATININE 0.6 mg/dL (0.5-1.5); POTASSIUM 3.4 mmol/L (3.5-5.1); TOTAL PROTEIN, SERUM 7.5 g/dL (6.0-8.3)
[2023-07-07 11:39] LABS: INR 1.05 (0.85-1.15); PROTHROMBIN TIME 12.1 SEC (9.6-11.6)
[2023-07-07 11:41] LABS: PARTIAL THROMBOPLASTIN TIME 31.1 SEC (26.3-35.5)
[2023-07-07 15:50] LABS: APPEARANCE BODY FLUID CLEAR (CLEAR); COLOR,BODY FLUID YELLOW (LT YELLOW); SPECIMENTYPE,BODY FLUID ASCITES; TOTAL VOLUME,BODY FLUID 12000 mL
[2023-07-07 16:04] LABS: BODY FLUID RBC 677 /cu. mm.; BODY FLUID WBC 156 /cu. mm.
[2023-07-07 16:27] LABS: BF LYMPHOCYTE 27 %; BF MACROPHAGE 64; BF MESOTHELIAL 3 %; BF MONOCYTE 1 %; BF TOTAL CELLS COUNTED 100
== END | disposition home or self-care (01) ==
LOC: RAH 09:27
PROVIDERS: ATTEND Internal Medicine Gastroenterology
DX: K70.31 Alcoholic cirrhosis of liver with ascites (principal); I85.00 Esophageal varices without bleeding; K21.00 Gastro-esophageal reflux disease with esophagitis, without bleeding; E87.6 Hypokalemia; K64.0 First degree hemorrhoids; Z86.010 Personal history of colon polyps; Z79.899 Other long term (current) drug therapy; Z79.01 Long term (current) use of anticoagulants
CPT/HCPCS: 49083; 80053; 85025; 89051; 85610; 85730; 36415; P9046; C1729; 96365

== ENCOUNTER → 2023-07-21 | Outpatient (CLI) | payer OTHER ==
[2023-07-21 10:40] LABS: BASOPHILS # (AUTO) 0.03 K/uL (0.00-0.20); BASOPHILS % (AUTO) 0.7 % (0.0-5.0); EOSINOPHILS # (AUTO) 0.05 K/uL (0.00-0.70); EOSINOPHILS % (AUTO) 1.1 % (0.0-8.0); HEMATOCRIT 38.6 % (42-54); IMMATURE GRANULOCYTE ABSOLUTE 0.02 K/uL (0-1); LYMPHOCYTES # (AUTO) 0.7 K/uL (1.0-4.8); LYMPHOCYTES % (AUTO) 16.1 % (21.0-51.0); MEAN CORPUSCULAR HEMOGLOBIN 31.8 pg (27.0-33.0); MEAN CORPUSCULAR HGB CONC 33.7 g/dL (32.0-36.0); MEAN CORPUSCULAR VOLUME 94.4 fL (79-99); MONOCYTES # (AUTO) 0.9 K/uL (0.1-1.0); MONOCYTES % (AUTO) 20.4 % (3.0-13.0); NEUTROPHILS # (AUTO) 2.8 K/uL (1.8-7.7); NEUTROPHILS % (AUTO) 61.3 % (40.0-77.0); PLATELET COUNT (AUTO) 170 K/uL (130-400); RED BLOOD CELL COUNT(AUTO) 4.09 MIL/uL (4.50-6.20); RED CELL DISTRIBUTION WIDTH 12.9 % (11.0-15.5); WHITE BLOOD COUNT (AUTO) 4.6 K/uL (4.8-10.8)
[2023-07-21 10:51] LABS: ALBUMIN 2.6 g/dL (3.5-5.0); CREATININE 0.8 mg/dL (0.5-1.5); POTASSIUM 3.5 mmol/L (3.5-5.1); TOTAL PROTEIN, SERUM 7.2 g/dL (6.0-8.3)
[2023-07-21 11:02] LABS: INR 1.03 (0.85-1.15); PROTHROMBIN TIME 11.9 SEC (9.6-11.6)
[2023-07-21 11:03] LABS: PARTIAL THROMBOPLASTIN TIME 29.3 SEC (26.3-35.5)
[2023-07-21 16:48] LABS: APPEARANCE BODY FLUID CLEAR (CLEAR); COLOR,BODY FLUID YELLOW (LT YELLOW); SPECIMENTYPE,BODY FLUID ASCITES; TOTAL VOLUME,BODY FLUID 12400 mL
[2023-07-21 17:02] LABS: BODY FLUID RBC 1261 /cu. mm.; BODY FLUID WBC 52 /cu. mm.
[2023-07-21 18:06] LABS: BF LYMPHOCYTE 15 %; BF MACROPHAGE 57; BF MESOTHELIAL 21 %; BF MONOCYTE 1 %; BF OTHER CELLS 1; BF TOTAL CELLS COUNTED 100
== END ==
LOC: RAH 09:24
PROVIDERS: ATTEND Internal Medicine Gastroenterology
DX: K70.31 Alcoholic cirrhosis of liver with ascites (principal); K21.9 Gastro-esophageal reflux disease without esophagitis; Z86.010 Personal history of colon polyps; Z79.899 Other long term (current) drug therapy
CPT/HCPCS: 49083; 96365; 80053; 85025; 89051; 85610; 85730; 82105; 36415; P9046; C1729

== ENCOUNTER → 2023-08-04 | Outpatient (CLI) | payer OTHER ==
[2023-08-04 15:10] LABS: BODY FLUID RBC 1290 /cu. mm.; BODY FLUID WBC 234 /cu. mm.
[2023-08-04 15:40] LABS: APPEARANCE BODY FLUID CLEAR (CLEAR); COLOR,BODY FLUID YELLOW (LT YELLOW); SPECIMENTYPE,BODY FLUID ASCITES; TOTAL VOLUME,BODY FLUID 9500 mL
[2023-08-04 16:58] LABS: BF LYMPHOCYTE 36 %; BF MACROPHAGE 57; BF MONOCYTE 2 %; BF TOTAL CELLS COUNTED 100
== END | disposition home or self-care (01) ==
LOC: RAH 09:23
PROVIDERS: ATTEND Internal Medicine Gastroenterology
DX: K70.31 Alcoholic cirrhosis of liver with ascites (principal); K21.9 Gastro-esophageal reflux disease without esophagitis; I85.10 Secondary esophageal varices without bleeding; K21.00 Gastro-esophageal reflux disease with esophagitis, without bleeding; E87.6 Hypokalemia; E87.1 Hypo-osmolality and hyponatremia; Z86.010 Personal history of colon polyps; Z79.899 Other long term (current) drug therapy; Z79.01 Long term (current) use of anticoagulants
CPT/HCPCS: 49083; 89051; C1729; 96365

== ENCOUNTER → 2023-08-18 | Outpatient (CLI) | payer MEDICARE, OTHER ==
[2023-08-18 14:58] LABS: BODY FLUID RBC 914 /cu. mm.; BODY FLUID WBC 224 /cu. mm.
[2023-08-18 15:06] LABS: APPEARANCE BODY FLUID SLIGHTLY CLOUDY (CLEAR); COLOR,BODY FLUID YELLOW (LT YELLOW); SPECIMENTYPE,BODY FLUID ASCITES; TOTAL VOLUME,BODY FLUID 7500 mL
[2023-08-18 16:02] LABS: BF LYMPHOCYTE 36 %; BF MACROPHAGE 56; BF OTHER CELLS 3; BF TOTAL CELLS COUNTED 100
== END | disposition home or self-care (01) ==
LOC: RAH 09:54
PROVIDERS: ATTEND Internal Medicine Gastroenterology
DX: K70.31 Alcoholic cirrhosis of liver with ascites (principal); I85.10 Secondary esophageal varices without bleeding; K21.00 Gastro-esophageal reflux disease with esophagitis, without bleeding; E87.6 Hypokalemia; E87.1 Hypo-osmolality and hyponatremia; Z86.010 Personal history of colon polyps; Z79.01 Long term (current) use of anticoagulants; Z79.899 Other long term (current) drug therapy
CPT/HCPCS: 49083; 89051; P9046; C1729

== ENCOUNTER → 2023-09-01 | Outpatient (CLI) | payer OTHER ==
[2023-09-01 11:29] LABS: BASOPHILS # (AUTO) 0.03 K/uL (0.00-0.20); BASOPHILS % (AUTO) 0.9 % (0.0-5.0); EOSINOPHILS # (AUTO) 0.06 K/uL (0.00-0.70); EOSINOPHILS % (AUTO) 1.8 % (0.0-8.0); HEMATOCRIT 38.4 % (42-54); IMMATURE GRANULOCYTE ABSOLUTE 0.01 K/uL (0-1); LYMPHOCYTES # (AUTO) 0.7 K/uL (1.0-4.8); LYMPHOCYTES % (AUTO) 21.2 % (21.0-51.0); MEAN CORPUSCULAR HEMOGLOBIN 32.6 pg (27.0-33.0); MEAN CORPUSCULAR HGB CONC 33.9 g/dL (32.0-36.0); MEAN CORPUSCULAR VOLUME 96.2 fL (79-99); MONOCYTES # (AUTO) 0.6 K/uL (0.1-1.0); MONOCYTES % (AUTO) 17.9 % (3.0-13.0); NEUTROPHILS % (AUTO) 57.9 % (40.0-77.0); PLATELET COUNT (AUTO) 150 K/uL (130-400); RED BLOOD CELL COUNT(AUTO) 3.99 MIL/uL (4.50-6.20); RED CELL DISTRIBUTION WIDTH 13.6 % (11.0-15.5); WHITE BLOOD COUNT (AUTO) 3.4 K/uL (4.8-10.8)
[2023-09-01 11:43] LABS: PROTHROMBIN TIME 11.6 SEC (9.6-11.6)
[2023-09-01 11:44] LABS: PARTIAL THROMBOPLASTIN TIME 30.4 SEC (26.3-35.5)
[2023-09-01 11:48] LABS: BILIRUBIN,TOTAL 1.7 mg/dL (0.2-1.0); CREATININE 0.7 mg/dL (0.5-1.5); POTASSIUM 3.7 mmol/L (3.5-5.1); TOTAL PROTEIN, SERUM 7.8 g/dL (6.0-8.3)
[2023-09-01 16:52] LABS: APPEARANCE BODY FLUID CLEAR (CLEAR); BODY FLUID RBC 440 /cu. mm.; BODY FLUID WBC 180 /cu. mm.; COLOR,BODY FLUID YELLOW (LT YELLOW); SPECIMENTYPE,BODY FLUID ASCITES; TOTAL VOLUME,BODY FLUID 9000 mL
[2023-09-01 18:19] LABS: BF LYMPHOCYTE 22 %; BF MACROPHAGE 65; BF MESOTHELIAL 3 %; BF OTHER CELLS 2; BF TOTAL CELLS COUNTED 100
== END | disposition home or self-care (01) ==
LOC: RAH 09:24
PROVIDERS: ATTEND Internal Medicine Gastroenterology
DX: K70.31 Alcoholic cirrhosis of liver with ascites (principal); I85.10 Secondary esophageal varices without bleeding; K29.50 Unspecified chronic gastritis without bleeding; K64.0 First degree hemorrhoids; K21.00 Gastro-esophageal reflux disease with esophagitis, without bleeding; E87.1 Hypo-osmolality and hyponatremia; E87.6 Hypokalemia; Z79.01 Long term (current) use of anticoagulants; Z79.899 Other long term (current) drug therapy; Z87.891 Personal history of nicotine dependence
CPT/HCPCS: 49083; 80053; 85025; 89051; 85610; 85730; 82105; 36415; P9046; C1729; 96365

== ENCOUNTER → 2023-09-15 | Outpatient (CLI) | payer MEDICARE, OTHER ==
[2023-09-15 14:44] LABS: TOTAL VOLUME,BODY FLUID 9000 mL
[2023-09-15 14:45] LABS: APPEARANCE BODY FLUID CLEAR (CLEAR); COLOR,BODY FLUID YELLOW (LT YELLOW); SPECIMENTYPE,BODY FLUID ASCITES
[2023-09-15 14:52] LABS: BODY FLUID RBC 940 /cu. mm.; BODY FLUID WBC 280 /cu. mm.
[2023-09-15 14:56] LABS: BF LYMPHOCYTE 13 %; BF MESOTHELIAL 82 %; BF MONOCYTE 5 %; BF TOTAL CELLS COUNTED 100
== END | disposition home or self-care (01) ==
LOC: RAH 09:55
PROVIDERS: ATTEND Internal Medicine Gastroenterology
DX: K70.31 Alcoholic cirrhosis of liver with ascites (principal); I85.10 Secondary esophageal varices without bleeding; K21.00 Gastro-esophageal reflux disease with esophagitis, without bleeding; E87.1 Hypo-osmolality and hyponatremia; E87.6 Hypokalemia; Z79.899 Other long term (current) drug therapy; Z79.01 Long term (current) use of anticoagulants; Z86.010 Personal history of colon polyps
CPT/HCPCS: 49083; 89051; P9046; C1729; 96365

== ENCOUNTER → 2023-09-29 | Outpatient (CLI) | payer OTHER ==
[~2023-09-29] MED LIST changes: -ALBUMIN (HUMAN) 25% 200 ML IV SCH
[2023-09-29] MEDS: ALBUMIN (HUMAN) 25% 200 ML IV SCH (10:10)
[2023-09-29 15:38] LABS: BODY FLUID RBC 1165 /cu. mm.; BODY FLUID WBC 168 /cu. mm.
[2023-09-29 16:06] LABS: APPEARANCE BODY FLUID CLEAR (CLEAR); COLOR,BODY FLUID YELLOW (LT YELLOW); SPECIMENTYPE,BODY FLUID ASCITES; TOTAL VOLUME,BODY FLUID 10300 mL
[2023-09-29 16:11] LABS: BF LYMPHOCYTE 3 %; BF MACROPHAGE 32; BF MESOTHELIAL 62 %; BF MONOCYTE 3 %; BF TOTAL CELLS COUNTED 100
== END | disposition home or self-care (01) ==
LOC: RAH 09:28
PROVIDERS: ATTEND Internal Medicine Gastroenterology
DX: K70.31 Alcoholic cirrhosis of liver with ascites (principal); E87.6 Hypokalemia; K59.00 Constipation, unspecified; K21.00 Gastro-esophageal reflux disease with esophagitis, without bleeding; K29.50 Unspecified chronic gastritis without bleeding; K64.0 First degree hemorrhoids; E87.1 Hypo-osmolality and hyponatremia; I85.00 Esophageal varices without bleeding; R14.0 Abdominal distension (gaseous); F17.210 Nicotine dependence, cigarettes, uncomplicated; Z72.89 Other problems related to lifestyle; Z86.010 Personal history of colon polyps; Z95.0 Presence of cardiac pacemaker; Z79.899 Other long term (current) drug therapy; Z98.890 Other specified postprocedural states
CPT/HCPCS: 49083; 89051; P9046; C1729; 96365

== ENCOUNTER → 2023-11-10 | Outpatient (CLI) | payer OTHER ==
[~2023-11-10] MED LIST changes: +ALBUMIN (HUMAN) 25% 200 ML IV SCH
[2023-11-10 13:46] LABS: ALBUMIN,BODY FLUID 1.2 g/dL; TOTAL PROTEIN,BODY FLUID 2.6 g/dL
[2023-11-10 14:01] LABS: APPEARANCE BODY FLUID CLEAR (CLEAR); COLOR,BODY FLUID YELLOW (LT YELLOW); SPECIMENTYPE,BODY FLUID ASCITES
[2023-11-10 14:02] LABS: TOTAL VOLUME,BODY FLUID 7500 mL
[2023-11-10 14:24] LABS: BODY FLUID RBC 919 /cu. mm.; BODY FLUID WBC 210 /cu. mm.
[2023-11-10 14:51] LABS: BF LYMPHOCYTE 53 %; BF MESOTHELIAL 36 %; BF MONOCYTE 7 %; BF TOTAL CELLS COUNTED 100
== END | disposition home or self-care (01) ==
LOC: RAH 09:43
PROVIDERS: ATTEND Internal Medicine Gastroenterology
DX: K70.31 Alcoholic cirrhosis of liver with ascites (principal); I85.10 Secondary esophageal varices without bleeding; K29.50 Unspecified chronic gastritis without bleeding; K21.00 Gastro-esophageal reflux disease with esophagitis, without bleeding; K64.0 First degree hemorrhoids; E87.6 Hypokalemia; E87.1 Hypo-osmolality and hyponatremia; R14.0 Abdominal distension (gaseous); R11.0 Nausea; F17.210 Nicotine dependence, cigarettes, uncomplicated; Z79.01 Long term (current) use of anticoagulants; Z72.89 Other problems related to lifestyle
CPT/HCPCS: 49083; 84157; 89051; 87071; 87076; 87205; 82042; 88305; 88112; C1729; 96365

== ENCOUNTER → 2023-11-24 | Outpatient (CLI) | payer OTHER ==
[~2023-11-24] MED LIST changes: -ALBUMIN (HUMAN) 25% 200 ML IV SCH
[2023-11-24 09:13] LABS: BASOPHILS # (AUTO) 0.02 K/uL (0.00-0.20); BASOPHILS % (AUTO) 0.6 % (0.0-5.0); EOSINOPHILS # (AUTO) 0.02 K/uL (0.00-0.70); EOSINOPHILS % (AUTO) 0.6 % (0.0-8.0); HEMATOCRIT 38.8 % (42-54); IMMATURE GRANULOCYTE ABSOLUTE 0.02 K/uL (0-1); LYMPHOCYTES # (AUTO) 0.6 K/uL (1.0-4.8); LYMPHOCYTES % (AUTO) 18.9 % (21.0-51.0); MEAN CORPUSCULAR HEMOGLOBIN 31.9 pg (27.0-33.0); MEAN CORPUSCULAR HGB CONC 33.5 g/dL (32.0-36.0); MEAN CORPUSCULAR VOLUME 95.3 fL (79-99); MONOCYTES # (AUTO) 0.5 K/uL (0.1-1.0); MONOCYTES % (AUTO) 16.7 % (3.0-13.0); NEUTROPHILS % (AUTO) 62.6 % (40.0-77.0); PLATELET COUNT (AUTO) 123 K/uL (130-400); RED BLOOD CELL COUNT(AUTO) 4.07 MIL/uL (4.50-6.20); RED CELL DISTRIBUTION WIDTH 13.7 % (11.0-15.5); WHITE BLOOD COUNT (AUTO) 3.1 K/uL (4.8-10.8)
[2023-11-24] MEDS: ALBUMIN (HUMAN) 25% 200 ML IV PRN (09:16)
[2023-11-24 09:20] LABS: INR 1.02 (0.85-1.15)
[2023-11-24 09:21] LABS: PARTIAL THROMBOPLASTIN TIME 30.3 SEC (26.3-35.5)
[2023-11-24 09:28] LABS: ALBUMIN 2.8 g/dL (3.5-5.0); BILIRUBIN,TOTAL 2.4 mg/dL (0.2-1.0); CREATININE 0.6 mg/dL (0.5-1.3); POTASSIUM 3.5 mmol/L (3.5-5.1); TOTAL PROTEIN, SERUM 7.4 g/dL (6.0-8.3)
[2023-11-24 13:21] LABS: ALBUMIN,BODY FLUID 0.9 g/dL
[2023-11-24 14:04] LABS: APPEARANCE BODY FLUID CLEAR (CLEAR); COLOR,BODY FLUID YELLOW (LT YELLOW); SPECIMENTYPE,BODY FLUID ASCITES; TOTAL VOLUME,BODY FLUID 10300 mL
[2023-11-24 14:16] LABS: BODY FLUID RBC 240 /cu. mm.; BODY FLUID WBC 150 /cu. mm.
[2023-11-24 15:07] LABS: BF LYMPHOCYTE 11 %; BF MACROPHAGE 79; BF MONOCYTE 1 %; BF OTHER CELLS 3; BF TOTAL CELLS COUNTED 100
== END | disposition home or self-care (01) ==
LOC: RAH 07:46
PROVIDERS: ATTEND Internal Medicine Gastroenterology
DX: K70.31 Alcoholic cirrhosis of liver with ascites (principal); K21.00 Gastro-esophageal reflux disease with esophagitis, without bleeding; I85.10 Secondary esophageal varices without bleeding; R14.0 Abdominal distension (gaseous); E87.6 Hypokalemia; E87.1 Hypo-osmolality and hyponatremia; K29.50 Unspecified chronic gastritis without bleeding; Z86.010 Personal history of colon polyps; Z79.899 Other long term (current) drug therapy; Z79.01 Long term (current) use of anticoagulants
CPT/HCPCS: 49083; 84157; 80053; 85025; 89051; 85610; 85730; 87071; 87205; 82042; 36415; 88305; 88112; C1729; 96365

== ENCOUNTER → 2023-12-08 | Outpatient (CLI) | payer OTHER ==
[~2023-12-08] MED LIST changes: +ALBUMIN (HUMAN) 25% 200 ML IV ONE
[2023-12-08 17:34] LABS: BODY FLUID RBC 155 /cu. mm.; BODY FLUID WBC 135 /cu. mm.
[2023-12-08 17:42] LABS: ALBUMIN,BODY FLUID 0.9 g/dL; TOTAL PROTEIN,BODY FLUID 2.1 g/dL
[2023-12-08 18:07] LABS: APPEARANCE BODY FLUID CLEAR (CLEAR); COLOR,BODY FLUID YELLOW (LT YELLOW); SPECIMENTYPE,BODY FLUID ASCITES; TOTAL VOLUME,BODY FLUID 10200 mL
[2023-12-08 18:45] LABS: BF LYMPHOCYTE 22 %; BF MACROPHAGE 63; BF MESOTHELIAL 2 %; BF MONOCYTE 1 %; BF OTHER CELLS 1; BF TOTAL CELLS COUNTED 100
== END | disposition home or self-care (01) ==
LOC: RAH 09:34
PROVIDERS: ATTEND Internal Medicine Gastroenterology
DX: K70.31 Alcoholic cirrhosis of liver with ascites (principal); K21.00 Gastro-esophageal reflux disease with esophagitis, without bleeding; I85.10 Secondary esophageal varices without bleeding; R14.0 Abdominal distension (gaseous); E87.6 Hypokalemia; E87.1 Hypo-osmolality and hyponatremia; K29.50 Unspecified chronic gastritis without bleeding; Z86.010 Personal history of colon polyps; Z79.01 Long term (current) use of anticoagulants; Z79.899 Other long term (current) drug therapy
CPT/HCPCS: 49083; 84157; 89051; 87071; 87076; 87205; 82105; 82042; 36415; 88305; 88112; P9046; C1729; 96365

== ENCOUNTER → 2023-12-22 | Outpatient (CLI) | payer OTHER ==
[~2023-12-22] MED LIST changes: +ALBUMIN (HUMAN) 25% 200 ML IV SCH; +FOLI1 PO; +FURO40TA5 PO; +LACT10SO75 PO; +OMEP40CA21 PO; +SPIR100T5 PO
[2023-12-22 15:50] LABS: APPEARANCE BODY FLUID CLEAR (CLEAR); COLOR,BODY FLUID YELLOW (LT YELLOW); SPECIMENTYPE,BODY FLUID ASCITES; TOTAL VOLUME,BODY FLUID 7500 mL
[2023-12-22 15:55] LABS: BODY FLUID RBC 242 /cu. mm.; BODY FLUID WBC 77 /cu. mm.
[2023-12-22 16:03] LABS: TOTAL PROTEIN,BODY FLUID 2.2 g/dL
[2023-12-22 16:18] LABS: BF LYMPHOCYTE 15 %; BF MACROPHAGE 71; BF MESOTHELIAL 1 %; BF OTHER CELLS 5; BF TOTAL CELLS COUNTED 100
== END | disposition home or self-care (01) ==
LOC: RAH 07:52
PROVIDERS: ATTEND Internal Medicine Gastroenterology
DX: K70.31 Alcoholic cirrhosis of liver with ascites (principal); K21.00 Gastro-esophageal reflux disease with esophagitis, without bleeding; I85.10 Secondary esophageal varices without bleeding; R14.0 Abdominal distension (gaseous); E87.6 Hypokalemia; E87.1 Hypo-osmolality and hyponatremia; K29.50 Unspecified chronic gastritis without bleeding; Z79.899 Other long term (current) drug therapy; Z79.01 Long term (current) use of anticoagulants
CPT/HCPCS: 49083; 84157; 89051; 87071; 87076; 87205; 82042; P9046; C1729; 96365

== ENCOUNTER → 2024-01-05 | Outpatient (CLI) | payer OTHER ==
[~2024-01-05] MED LIST changes: -ALBUMIN (HUMAN) 25% 200 ML IV SCH; -CIPR-279 PO; -FOLI0.8T3 PO; -FOLI1TAB15 PO; -PANT40TA PO; -THIA100T78 PO
[2024-01-05 12:52] LABS: ALBUMIN,BODY FLUID 1.6 g/dL; TOTAL PROTEIN,BODY FLUID 3.1 g/dL
[2024-01-05 14:21] LABS: APPEARANCE BODY FLUID CLEAR (CLEAR); COLOR,BODY FLUID YELLOW (LT YELLOW); SPECIMENTYPE,BODY FLUID ASCITES; TOTAL VOLUME,BODY FLUID 4800 mL
[2024-01-05 14:23] LABS: BF LYMPHOCYTE 69 %; BF MESOTHELIAL 19 %; BF MONOCYTE 9 %; BF TOTAL CELLS COUNTED 100
[2024-01-05 14:27] LABS: BODY FLUID RBC 3273 /cu. mm.; BODY FLUID WBC 263 /cu. mm.
== END | disposition home or self-care (01) ==
LOC: RAH 07:43
PROVIDERS: ATTEND Internal Medicine Gastroenterology
DX: K70.31 Alcoholic cirrhosis of liver with ascites (principal); K21.00 Gastro-esophageal reflux disease with esophagitis, without bleeding; I85.10 Secondary esophageal varices without bleeding; E87.1 Hypo-osmolality and hyponatremia; E87.6 Hypokalemia; Z79.01 Long term (current) use of anticoagulants; Z79.899 Other long term (current) drug therapy; Z98.890 Other specified postprocedural states
CPT/HCPCS: 49083; 84157; 89051; 87071; 87076; 87205; 82042; 88305; 88112; P9046; C1729; 96365

== ENCOUNTER → 2024-01-19 | Outpatient (CLI) | payer OTHER ==
[2024-01-19 13:24] LABS: APPEARANCE BODY FLUID CLEAR (CLEAR); COLOR,BODY FLUID YELLOW (LT YELLOW); SPECIMENTYPE,BODY FLUID ASCITES; TOTAL VOLUME,BODY FLUID 5300 mL
[2024-01-19 13:27] LABS: ALBUMIN,BODY FLUID 1.4 g/dL; TOTAL PROTEIN,BODY FLUID 2.9 g/dL
[2024-01-19 13:34] LABS: BODY FLUID RBC 1029 /cu. mm.; BODY FLUID WBC 296 /cu. mm.
[2024-01-19 13:39] LABS: BF LYMPHOCYTE 14 %; BF MESOTHELIAL 67 %; BF MONOCYTE 17 %; BF TOTAL CELLS COUNTED 100
== END | disposition home or self-care (01) ==
LOC: RAH 07:59
PROVIDERS: ATTEND Internal Medicine Gastroenterology
DX: K70.31 Alcoholic cirrhosis of liver with ascites (principal); E87.1 Hypo-osmolality and hyponatremia; K21.00 Gastro-esophageal reflux disease with esophagitis, without bleeding; K29.50 Unspecified chronic gastritis without bleeding; R14.0 Abdominal distension (gaseous); K64.0 First degree hemorrhoids; Z86.010 Personal history of colon polyps; Z79.01 Long term (current) use of anticoagulants; Z79.899 Other long term (current) drug therapy
CPT/HCPCS: 49083; 84157; 89051; 87071; 87076; 87205; 82042; 88305; 88112; P9046; C1729

== ENCOUNTER → 2024-02-14 | Outpatient (CLI) | payer OTHER ==
[2024-02-14 16:16] LABS: APPEARANCE BODY FLUID CLEAR (CLEAR); COLOR,BODY FLUID YELLOW (LT YELLOW); SPECIMENTYPE,BODY FLUID ABDOMINAL; TOTAL VOLUME,BODY FLUID 7600 mL
[2024-02-14 16:27] LABS: BODY FLUID RBC 200 /cu. mm.; BODY FLUID WBC 118 /cu. mm.
[2024-02-14 17:10] LABS: BF LYMPHOCYTE 19 %; BF MACROPHAGE 15; BF MESOTHELIAL 64 %; BF OTHER CELLS 2; BF TOTAL CELLS COUNTED 100
== END | disposition home or self-care (01) ==
LOC: RAH 08:21
PROVIDERS: ATTEND Internal Medicine Gastroenterology
DX: K70.31 Alcoholic cirrhosis of liver with ascites (principal); I85.10 Secondary esophageal varices without bleeding; R14.0 Abdominal distension (gaseous); K21.00 Gastro-esophageal reflux disease with esophagitis, without bleeding; K29.50 Unspecified chronic gastritis without bleeding; K64.0 First degree hemorrhoids; E87.1 Hypo-osmolality and hyponatremia; Z79.899 Other long term (current) drug therapy; Z79.01 Long term (current) use of anticoagulants; Z98.890 Other specified postprocedural states
CPT/HCPCS: 49083; 89051; P9046; C1729; 96365

== ENCOUNTER → 2024-02-28 | Outpatient (CLI) | payer OTHER ==
[2024-02-28 11:04] LABS: BASOPHILS # (AUTO) 0.03 K/uL (0.00-0.20); BASOPHILS % (AUTO) 1.1 % (0.0-5.0); EOSINOPHILS # (AUTO) 0.03 K/uL (0.00-0.70); EOSINOPHILS % (AUTO) 1.1 % (0.0-8.0); HEMATOCRIT 35.8 % (42-54); IMMATURE GRANULOCYTE ABSOLUTE 0.01 K/uL (0-1); LYMPHOCYTES # (AUTO) 0.6 K/uL (1.0-4.8); LYMPHOCYTES % (AUTO) 21.6 % (21.0-51.0); MEAN CORPUSCULAR VOLUME 91.1 fL (79-99); MONOCYTES # (AUTO) 0.5 K/uL (0.1-1.0); NEUTROPHILS # (AUTO) 1.7 K/uL (1.8-7.7); NEUTROPHILS % (AUTO) 58.8 % (40.0-77.0); PLATELET COUNT (AUTO) 92 K/uL (130-400); RED BLOOD CELL COUNT(AUTO) 3.93 MIL/uL (4.50-6.20); RED CELL DISTRIBUTION WIDTH 15.3 % (11.0-15.5); WHITE BLOOD COUNT (AUTO) 2.8 K/uL (4.8-10.8)
[2024-02-28 11:19] LABS: ALBUMIN 2.8 g/dL (3.5-5.0); BILIRUBIN,DIRECT 0.6 mg/dL (0.0-0.3); BILIRUBIN,TOTAL 1.6 mg/dL (0.2-1.0); CREATININE 0.6 mg/dL (0.5-1.3); POTASSIUM 3.6 mmol/L (3.5-5.1); TOTAL PROTEIN, SERUM 7.5 g/dL (6.0-8.3)
[2024-02-28 11:37] LABS: BASOPHILS % (MANUAL) 1 % (0-2); LYMPHOCYTES % (MANUAL) 22 % (22-44); MAN.DIFF COMMENT-IMPRESSION MANUAL DIFFERENTIAL; MONOCYTES % (MANUAL) 8 % (2-9); PLATELET MORPHOLOGY COMMENT DECREASED; SEGMENTED NEUTROPHILS % 69 % (40-70); TOTAL CELLS COUNTED 100
[2024-02-28 11:48] LABS: INR 1.13 (0.85-1.15); PROTHROMBIN TIME 12.1 SEC (9.6-11.6)
[2024-02-28 11:50] LABS: PARTIAL THROMBOPLASTIN TIME 30.2 SEC (26.3-35.5)
[2024-02-28 15:22] LABS: BODY FLUID RBC 300 /cu. mm.; BODY FLUID WBC 200 /cu. mm.
[2024-02-28 15:27] LABS: APPEARANCE BODY FLUID CLEAR (CLEAR); COLOR,BODY FLUID YELLOW (LT YELLOW); SPECIMENTYPE,BODY FLUID ASCITES; TOTAL VOLUME,BODY FLUID 6700 mL
[2024-02-28 16:54] LABS: BF LYMPHOCYTE 15 %; BF MACROPHAGE 78; BF MESOTHELIAL 2 %; BF OTHER CELLS 1; BF TOTAL CELLS COUNTED 100
== END | disposition home or self-care (01) ==
LOC: RAH 09:16
PROVIDERS: ATTEND Internal Medicine Gastroenterology
DX: K70.31 Alcoholic cirrhosis of liver with ascites (principal); K21.9 Gastro-esophageal reflux disease without esophagitis; I85.10 Secondary esophageal varices without bleeding; R11.0 Nausea; R14.0 Abdominal distension (gaseous); K21.00 Gastro-esophageal reflux disease with esophagitis, without bleeding; K29.50 Unspecified chronic gastritis without bleeding; K64.0 First degree hemorrhoids; E87.1 Hypo-osmolality and hyponatremia; Z79.899 Other long term (current) drug therapy
CPT/HCPCS: 49083; 82248; 80053; 85025; 89051; 85610; 85730; 36415; P9046; C1729

== ENCOUNTER → 2024-03-12 | Outpatient (CLI) | payer OTHER ==
[2024-03-12 14:26] LABS: BODY FLUID RBC 298 /cu. mm.; BODY FLUID WBC 129 /cu. mm.
[2024-03-12 14:34] LABS: APPEARANCE BODY FLUID CLEAR (CLEAR); COLOR,BODY FLUID YELLOW (LT YELLOW); SPECIMENTYPE,BODY FLUID ASCITES; TOTAL VOLUME,BODY FLUID 7800 mL
[2024-03-12 14:41] LABS: BF LYMPHOCYTE 8 %; BF MESOTHELIAL 83 %; BF MONOCYTE 9 %; BF TOTAL CELLS COUNTED 100
== END | disposition home or self-care (01) ==
LOC: RAH 09:46
PROVIDERS: ATTEND Internal Medicine Gastroenterology
DX: K70.31 Alcoholic cirrhosis of liver with ascites (principal)
CPT/HCPCS: 49083; 89051; P9046; C1729; 96365

== ENCOUNTER → 2024-03-26 | Outpatient (CLI) | payer OTHER ==
[2024-03-26 12:05] LABS: BASOPHILS # (AUTO) 0.02 K/uL (0.00-0.20); BASOPHILS % (AUTO) 0.8 % (0.0-5.0); EOSINOPHILS # (AUTO) 0.02 K/uL (0.00-0.70); EOSINOPHILS % (AUTO) 0.8 % (0.0-8.0); HEMATOCRIT 35.3 % (42-54); IMMATURE GRANULOCYTE ABSOLUTE 0.01 K/uL (0-1); LYMPHOCYTES # (AUTO) 0.5 K/uL (1.0-4.8); LYMPHOCYTES % (AUTO) 18.9 % (21.0-51.0); MEAN CORPUSCULAR HEMOGLOBIN 29.9 pg (27.0-33.0); MEAN CORPUSCULAR HGB CONC 33.7 g/dL (32.0-36.0); MEAN CORPUSCULAR VOLUME 88.7 fL (79-99); MONOCYTES # (AUTO) 0.4 K/uL (0.1-1.0); MONOCYTES % (AUTO) 15.4 % (3.0-13.0); NEUTROPHILS # (AUTO) 1.6 K/uL (1.8-7.7); NEUTROPHILS % (AUTO) 63.7 % (40.0-77.0); PLATELET COUNT (AUTO) 97 K/uL (130-400); RED BLOOD CELL COUNT(AUTO) 3.98 MIL/uL (4.50-6.20); RED CELL DISTRIBUTION WIDTH 16.8 % (11.0-15.5); WHITE BLOOD COUNT (AUTO) 2.5 K/uL (4.8-10.8)
[2024-03-26 12:16] LABS: INR 1.11 (0.85-1.15); PROTHROMBIN TIME 11.9 SEC (9.6-11.6)
[2024-03-26 12:17] LABS: PARTIAL THROMBOPLASTIN TIME 28.7 SEC (26.3-35.5)
[2024-03-26 12:28] LABS: ALBUMIN 2.8 g/dL (3.5-5.0); CREATININE 0.6 mg/dL (0.5-1.3); POTASSIUM 3.6 mmol/L (3.5-5.1); TOTAL PROTEIN, SERUM 7.3 g/dL (6.0-8.3)
[2024-03-26 12:43] LABS: EOSINOPHILS % (MANUAL) 1 % (1-6); LYMPHOCYTES % (MANUAL) 19 % (22-44); MAN.DIFF COMMENT-IMPRESSION MANUAL DIFFERENTIAL; PLATELET MORPHOLOGY COMMENT DECREASED; SEGMENTED NEUTROPHILS % 80 % (40-70); TOTAL CELLS COUNTED 100
[2024-03-26 13:23] LABS: BODY FLUID RBC 209 /cu. mm.; BODY FLUID WBC 238 /cu. mm.
[2024-03-26 13:41] LABS: APPEARANCE BODY FLUID CLEAR (CLEAR); COLOR,BODY FLUID YELLOW (LT YELLOW); SPECIMENTYPE,BODY FLUID ASCITES; TOTAL VOLUME,BODY FLUID 8500 mL
[2024-03-26 14:28] LABS: BF LYMPHOCYTE 7 %; BF MESOTHELIAL 89 %; BF MONOCYTE 4 %; BF TOTAL CELLS COUNTED 100
== END | disposition home or self-care (01) ==
LOC: RAH 09:29
PROVIDERS: ATTEND Internal Medicine Gastroenterology
DX: K70.31 Alcoholic cirrhosis of liver with ascites (principal); I85.10 Secondary esophageal varices without bleeding; R11.0 Nausea; R14.0 Abdominal distension (gaseous); K21.00 Gastro-esophageal reflux disease with esophagitis, without bleeding; Z86.010 Personal history of colon polyps; K29.50 Unspecified chronic gastritis without bleeding; K64.0 First degree hemorrhoids; E87.1 Hypo-osmolality and hyponatremia; Z79.899 Other long term (current) drug therapy
CPT/HCPCS: 49083; 80053; 85025; 89051; 85610; 85730; 36415; P9046; C1729

== ENCOUNTER 2024-03-27 07:06 | Day surgery (SDC) | payer OTHER ==
[2024-03-27] VITALS (12 sets, daily range): BP systolic 93–100; BP diastolic 60–65; PULSE 52–66; RESP 14–17
[~2024-03-27] VITALS: Ht 167.6 cm; Wt 51.5 kg
[~2024-03-27 07:06] MED LIST changes: -ALBUMIN (HUMAN) 25% 200 ML IV ONE; -FERR324T4 PO
[2024-03-27] MEDS: 0.9%NACL 1000ML 1,000 ML IV ONE (08:03)
[2024-03-27] MEDS ORDERED: PROPOFOL 10 MG/ML 20ML VIAL IV ONE (09:46)
== END 2024-03-27 11:25 | disposition home or self-care (01) ==
LOC: DAH 07:06 → ENDO 07:06
PROVIDERS: ATTEND Internal Medicine Gastroenterology
DX: K70.31 Alcoholic cirrhosis of liver with ascites (principal); I85.10 Secondary esophageal varices without bleeding; K76.6 Portal hypertension; K31.89 Other diseases of stomach and duodenum; R14.0 Abdominal distension (gaseous); K29.50 Unspecified chronic gastritis without bleeding; K21.00 Gastro-esophageal reflux disease with esophagitis, without bleeding; K64.0 First degree hemorrhoids; E87.1 Hypo-osmolality and hyponatremia; Z79.899 Other long term (current) drug therapy
CPT/HCPCS: 43244; 43239; J7030 ×2; J2704; A4620; A4215; A4223; A7002; A4222; A4221; A4663; A4606; J3490

== ENCOUNTER → 2024-04-10 | Outpatient (CLI) | payer OTHER ==
[~2024-04-10] MED LIST changes: +ALBUMIN (HUMAN) 25% 200 ML IV ONE
[2024-04-10 14:21] LABS: SPECIMENTYPE,BODY FLUID ASCITES
[2024-04-10 14:22] LABS: APPEARANCE BODY FLUID CLEAR (CLEAR); COLOR,BODY FLUID YELLOW (LT YELLOW); TOTAL VOLUME,BODY FLUID 7500 mL
[2024-04-10 14:26] LABS: BODY FLUID RBC 473 /cu. mm.; BODY FLUID WBC 164 /cu. mm.
[2024-04-10 18:12] LABS: BF LYMPHOCYTE 8 %; BF MACROPHAGE 86; BF OTHER CELLS 1; BF TOTAL CELLS COUNTED 100
== END | disposition home or self-care (01) ==
LOC: RAH 07:35
PROVIDERS: ATTEND Internal Medicine Gastroenterology
DX: K70.31 Alcoholic cirrhosis of liver with ascites (principal); I85.10 Secondary esophageal varices without bleeding; K21.00 Gastro-esophageal reflux disease with esophagitis, without bleeding; K29.50 Unspecified chronic gastritis without bleeding; K64.0 First degree hemorrhoids; E87.1 Hypo-osmolality and hyponatremia; R14.0 Abdominal distension (gaseous); Z86.010 Personal history of colon polyps; Z79.899 Other long term (current) drug therapy
CPT/HCPCS: 49083; 89051; P9046; C1729

== ENCOUNTER → 2024-05-09 | Outpatient (CLI) | payer OTHER ==
--- NOTE | 2024-05-09 11:40 | HMCIMG ---
US ABDOMINAL PARACENTESIS IR REASON: ALCOHOLIC CIRRHSIS OF LIVER WITH ASCITES TECHNIQUE: Paracentesis was performed with ultrasound guidance. The puncture site was selected in the Left lower quadrant and overlying skin prepped and draped in a sterile fashion. 1% Xylocaine infiltration was performed. Catheter was placed in the fluid using trocar technique. 8.8 L were removed. Fluid sample was submitted for laboratory evaluation. The patient showed no evidence of complication during the procedure. IMPRESSION: 1. Ultrasound-guided paracentesis.
[2024-05-09 13:13] LABS: BASOPHILS # (AUTO) 0.04 K/uL (0.00-0.20); BASOPHILS % (AUTO) 1.4 % (0.0-5.0); EOSINOPHILS # (AUTO) 0.04 K/uL (0.00-0.70); EOSINOPHILS % (AUTO) 1.4 % (0.0-8.0); HEMATOCRIT 38.1 % (42-54); IMMATURE GRANULOCYTE ABSOLUTE 0.01 K/uL (0-1); LYMPHOCYTES # (AUTO) 0.6 K/uL (1.0-4.8); LYMPHOCYTES % (AUTO) 22.4 % (21.0-51.0); MEAN CORPUSCULAR HEMOGLOBIN 30.4 pg (27.0-33.0); MEAN CORPUSCULAR HGB CONC 32.5 g/dL (32.0-36.0); MEAN CORPUSCULAR VOLUME 93.4 fL (79-99); MONOCYTES # (AUTO) 0.5 K/uL (0.1-1.0); MONOCYTES % (AUTO) 17.1 % (3.0-13.0); NEUTROPHILS # (AUTO) 1.6 K/uL (1.8-7.7); NEUTROPHILS % (AUTO) 57.3 % (40.0-77.0); PLATELET COUNT (AUTO) 76 K/uL (130-400); RED BLOOD CELL COUNT(AUTO) 4.08 MIL/uL (4.50-6.20); RED CELL DISTRIBUTION WIDTH 16.7 % (11.0-15.5); WHITE BLOOD COUNT (AUTO) 2.8 K/uL (4.8-10.8)
[2024-05-09 13:19] LABS: INR 1.09 (0.85-1.15); PROTHROMBIN TIME 11.7 SEC (9.6-11.6)
[2024-05-09 13:20] LABS: PARTIAL THROMBOPLASTIN TIME 29.9 SEC (26.3-35.5)
[2024-05-09 13:21] LABS: ALBUMIN 2.9 g/dL (3.5-5.0); BILIRUBIN,TOTAL 2.2 mg/dL (0.2-1.0); CREATININE 0.7 mg/dL (0.5-1.3); POTASSIUM 3.5 mmol/L (3.5-5.1); TOTAL PROTEIN, SERUM 7.8 g/dL (6.0-8.3)
[2024-05-09 13:51] LABS: LYMPHOCYTES % (MANUAL) 30 % (22-44); MAN.DIFF COMMENT-IMPRESSION MANUAL DIFFERENTIAL; MONOCYTES % (MANUAL) 6 % (2-9); PLATELET MORPHOLOGY COMMENT DECREASED; SEGMENTED NEUTROPHILS % 64 % (40-70); TOTAL CELLS COUNTED 100
[2024-05-09 16:01] LABS: ALBUMIN,BODY FLUID 0.9 g/dL; TOTAL PROTEIN,BODY FLUID 2.2 g/dL
[2024-05-09 16:03] LABS: BODY FLUID RBC 6446 /cu. mm.; BODY FLUID WBC 103 /cu. mm.
[2024-05-09 16:10] LABS: APPEARANCE BODY FLUID SLIGHTLY CLOUDY (CLEAR); COLOR,BODY FLUID ORANGE (LT YELLOW); SPECIMENTYPE,BODY FLUID ASCITES; TOTAL VOLUME,BODY FLUID 8600 mL
[2024-05-09 18:25] LABS: BF LYMPHOCYTE 14 %; BF MACROPHAGE 82; BF MESOTHELIAL 1 %; BF MONOCYTE 1 %; BF TOTAL CELLS COUNTED 100
== END | disposition home or self-care (01) ==
LOC: RAH 09:46
PROVIDERS: ATTEND Internal Medicine Gastroenterology
DX: K70.31 Alcoholic cirrhosis of liver with ascites (principal); I85.10 Secondary esophageal varices without bleeding; R11.0 Nausea; R14.0 Abdominal distension (gaseous); K21.00 Gastro-esophageal reflux disease with esophagitis, without bleeding; K29.50 Unspecified chronic gastritis without bleeding; K64.0 First degree hemorrhoids; E87.1 Hypo-osmolality and hyponatremia; Z86.010 Personal history of colon polyps; Z79.899 Other long term (current) drug therapy
CPT/HCPCS: 49083; 84157; 80053; 85025; 89051; 85610; 85730; 87071; 87205; 82042; 36415; 88305; 88112; P9046; C1729

== ENCOUNTER → 2024-05-23 | Outpatient (CLI) | payer OTHER ==
[2024-05-23 13:57] LABS: APPEARANCE BODY FLUID CLEAR (CLEAR); COLOR,BODY FLUID YELLOW (LT YELLOW); SPECIMENTYPE,BODY FLUID ASCITES; TOTAL VOLUME,BODY FLUID 6300 mL
[2024-05-23 14:03] LABS: ALBUMIN,BODY FLUID 0.9 g/dL; TOTAL PROTEIN,BODY FLUID 2.3 g/dL
[2024-05-23 14:30] LABS: BODY FLUID RBC 1032 /cu. mm.; BODY FLUID WBC 169 /cu. mm.
[2024-05-23 14:35] LABS: BF LYMPHOCYTE 28 %; BF MESOTHELIAL 69 %; BF MONOCYTE 2 %; BF TOTAL CELLS COUNTED 100
== END | disposition home or self-care (01) ==
LOC: RAH 09:01
PROVIDERS: ATTEND Internal Medicine Gastroenterology
DX: K70.31 Alcoholic cirrhosis of liver with ascites (principal); I85.10 Secondary esophageal varices without bleeding; K21.9 Gastro-esophageal reflux disease without esophagitis; R11.0 Nausea; R14.0 Abdominal distension (gaseous); K82.9 Disease of gallbladder, unspecified; K29.50 Unspecified chronic gastritis without bleeding; K64.0 First degree hemorrhoids; Z79.899 Other long term (current) drug therapy
CPT/HCPCS: 49083; 84157; 89051; 87071; 87205; 82042; 88305; 88112; P9046; C1729; 96365

== ENCOUNTER → 2024-06-04 | Outpatient (CLI) | payer OTHER ==
[2024-06-04 15:26] LABS: APPEARANCE BODY FLUID CLEAR (CLEAR); COLOR,BODY FLUID YELLOW (LT YELLOW); SPECIMENTYPE,BODY FLUID PERITONEAL; TOTAL VOLUME,BODY FLUID 6800 mL
[2024-06-04 15:34] LABS: TOTAL PROTEIN,BODY FLUID 2.2 g/dL
[2024-06-04 15:40] LABS: BODY FLUID RBC 166 /cu. mm.; BODY FLUID WBC 203 /cu. mm.
[2024-06-04 17:35] LABS: BF LYMPHOCYTE 8 %; BF MACROPHAGE 88; BF MESOTHELIAL 4 %; BF TOTAL CELLS COUNTED 100
== END | disposition home or self-care (01) ==
LOC: RAH 09:42
PROVIDERS: ATTEND Internal Medicine Gastroenterology
DX: K70.31 Alcoholic cirrhosis of liver with ascites (principal); I85.10 Secondary esophageal varices without bleeding; K21.00 Gastro-esophageal reflux disease with esophagitis, without bleeding; K29.50 Unspecified chronic gastritis without bleeding; K64.0 First degree hemorrhoids; R14.0 Abdominal distension (gaseous); K82.9 Disease of gallbladder, unspecified; Z86.0100 Personal history of colon polyps, unspecified; Z79.899 Other long term (current) drug therapy
CPT/HCPCS: 49083; 84157; 89051; 87071; 87205; 82042; 88305; 88112; P9046; C1729

== ENCOUNTER → 2024-06-18 | Outpatient (CLI) | payer OTHER ==
[~2024-06-18] MED LIST changes: +ALBUMIN (HUMAN) 25% 100 ML IV ONE
[2024-06-18 10:44] LABS: BASOPHILS # (AUTO) 0.04 K/uL (0.00-0.20); BASOPHILS % (AUTO) 1.7 % (0.0-5.0); EOSINOPHILS # (AUTO) 0.02 K/uL (0.00-0.70); EOSINOPHILS % (AUTO) 0.9 % (0.0-8.0); HEMATOCRIT 36.2 % (42-54); LYMPHOCYTES # (AUTO) 0.5 K/uL (1.0-4.8); LYMPHOCYTES % (AUTO) 22.8 % (21.0-51.0); MEAN CORPUSCULAR HEMOGLOBIN 31.3 pg (27.0-33.0); MEAN CORPUSCULAR HGB CONC 33.4 g/dL (32.0-36.0); MEAN CORPUSCULAR VOLUME 93.8 fL (79-99); MONOCYTES # (AUTO) 0.4 K/uL (0.1-1.0); MONOCYTES % (AUTO) 18.5 % (3.0-13.0); NEUTROPHILS # (AUTO) 1.3 K/uL (1.8-7.7); NEUTROPHILS % (AUTO) 56.1 % (40.0-77.0); PLATELET COUNT (AUTO) 104 K/uL (130-400); RED BLOOD CELL COUNT(AUTO) 3.86 MIL/uL (4.50-6.20); RED CELL DISTRIBUTION WIDTH 14.7 % (11.0-15.5); WHITE BLOOD COUNT (AUTO) 2.3 K/uL (4.8-10.8)
[2024-06-18 10:55] LABS: ALBUMIN 2.8 g/dL (3.5-5.0); CREATININE 0.6 mg/dL (0.5-1.3); POTASSIUM 3.5 mmol/L (3.5-5.1); TOTAL PROTEIN, SERUM 7.4 g/dL (6.0-8.3)
[2024-06-18 11:06] LABS: INR 1.11 (0.85-1.15); PROTHROMBIN TIME 11.9 SEC (9.6-11.6)
[2024-06-18 11:07] LABS: PARTIAL THROMBOPLASTIN TIME 29.7 SEC (26.3-35.5)
--- NOTE | 2024-06-18 11:15 | NUR ---
U/S GD PARACENTESIS PROCEDURE PERFORMED BY DR Cecilia FALK. PUNCTURE SITE RLQ AND PATIENT TOLERATED PROCEDURE WELL. TOTAL REMOVED 10 LITERS OF CLOUDY YELLOW FLUID. ALBUMIN 25% 50 GRAMS IV GIVEN DURING PROCEDURE. SPECIMEN SENT TO LAB. END OF PROCEDURE AT 1040. CATHETER REMOVED AND DRESSING APPLIED. NO BLEEDING NOTED. DISCHARGE INSTRUCTIONS GIVEN TO PATIENT AND VERBALIZED UNDERSTANDING. DISCHARGED VIA AMBULATION AT 1115. AAO X3 WITH NO C/O PAIN.
[2024-06-18 11:24] LABS: BASOPHILS % (MANUAL) 1 % (0-2); EOSINOPHILS % (MANUAL) 2 % (1-6); LYMPHOCYTES % (MANUAL) 30 % (22-44); MAN.DIFF COMMENT-IMPRESSION MANUAL DIFFERENTIAL; MONOCYTES % (MANUAL) 11 % (2-9); PLATELET MORPHOLOGY COMMENT SLIGHTLY DECREASED; SEGMENTED NEUTROPHILS % 56 % (40-70); TOTAL CELLS COUNTED 100
[2024-06-18 13:20] LABS: ALBUMIN,BODY FLUID 0.9 g/dL; TOTAL PROTEIN,BODY FLUID 2.1 g/dL
--- NOTE | 2024-06-18 13:47 | HMCIMG ---
US ABDOMINAL PARACENTESIS IR REASON: ASCITES TECHNIQUE: Paracentesis was performed with ultrasound guidance. The puncture site was selected in the Right lower quadrant and overlying skin prepped and draped in a sterile fashion. 1% Xylocaine infiltration was performed. Catheter was placed in the fluid using trocar technique. 10.5 L were removed. Fluid sample was submitted for laboratory evaluation. The patient showed no evidence of complication during the procedure. IMPRESSION: 1. Ultrasound-guided paracentesis.
[2024-06-18 15:46] LABS: BODY FLUID RBC 231 /cu. mm.; BODY FLUID WBC 74 /cu. mm.
[2024-06-18 16:19] LABS: APPEARANCE BODY FLUID CLEAR (CLEAR); COLOR,BODY FLUID YELLOW (LT YELLOW); SPECIMENTYPE,BODY FLUID ASCITES; TOTAL VOLUME,BODY FLUID 10500 mL
[2024-06-18 19:49] LABS: BF LYMPHOCYTE 19 %; BF MACROPHAGE 65; BF MESOTHELIAL 5 %; BF MONOCYTE 2 %; BF OTHER CELLS 2; BF TOTAL CELLS COUNTED 100
== END | disposition home or self-care (01) ==
LOC: RAH 09:37
PROVIDERS: ATTEND Internal Medicine Gastroenterology
DX: K70.31 Alcoholic cirrhosis of liver with ascites (principal); I85.10 Secondary esophageal varices without bleeding; R14.0 Abdominal distension (gaseous); K82.9 Disease of gallbladder, unspecified; K21.00 Gastro-esophageal reflux disease with esophagitis, without bleeding; K29.50 Unspecified chronic gastritis without bleeding; K64.0 First degree hemorrhoids; Z86.0100 Personal history of colon polyps, unspecified; Z79.899 Other long term (current) drug therapy
CPT/HCPCS: 49083; 84157; 80053; 85025; 89051; 85610; 85730; 87071; 87205; 82042; 36415; 88305; 88112; P9046; C1729

== ENCOUNTER → 2024-06-28 | Outpatient (CLI) | payer OTHER ==
[~2024-06-28] MED LIST changes: -ALBUMIN (HUMAN) 25% 100 ML IV ONE; -ALBUMIN (HUMAN) 25% 200 ML IV ONE
[2024-06-28 14:11] LABS: APPEARANCE BODY FLUID SLIGHTLY CLOUDY (CLEAR); COLOR,BODY FLUID YELLOW (LT YELLOW); SPECIMENTYPE,BODY FLUID ASCITES
[2024-06-28 14:15] LABS: TOTAL VOLUME,BODY FLUID 6000 mL
[2024-06-28 14:22] LABS: ALBUMIN,BODY FLUID 1.3 g/dL; TOTAL PROTEIN,BODY FLUID 2.6 g/dL
[2024-06-28 14:23] LABS: BODY FLUID RBC 138 /cu. mm.; BODY FLUID WBC 212 /cu. mm.
--- NOTE | 2024-06-28 15:41 | NUR ---
U/S GD PARACENTESIS PROCEDURE PERFORMED BY DR Cecille LOUIE. PUNCTURE SITE RLQ AND PATIENT TOLERATED PROCEDURE WELL. TOTAL REMOVED 6 LITERS OF CLOUDY YELLOW FLUID. ALBUMIN 25% 50 GRAMS IV GIVEN DURING PROCEDURE. SPECIMEN SENT TO LAB. END OF PROCEDURE AT 1045. CATHETER REMOVED AND DRESSING APPLIED. NO BLEEDING NOTED. DISCHARGE INSTRUCTIONS GIVEN TO PATIENT AND VERBALIZED UNDERSTANDING. DISCHARGED VIA AMBULATION AT 1015. AAO X3 WITH NO C/O PAIN.
[2024-06-28 16:39] LABS: BF LYMPHOCYTE 12 %; BF MACROPHAGE 71; BF MESOTHELIAL 17 %; BF TOTAL CELLS COUNTED 100
--- NOTE | 2024-07-02 09:57 | HMCIMG ---
US ABDOMINAL PARACENTESIS IR REASON: ASCITES TECHNIQUE: Paracentesis was performed with ultrasound guidance. The puncture site was selected in the Right lower quadrant and overlying skin prepped and draped in a sterile fashion. 1% Xylocaine infiltration was performed. Catheter was placed in the fluid using trocar technique. 6 L were removed. Fluid sample was submitted for laboratory evaluation. The patient showed no evidence of complication during the procedure. IMPRESSION: 1. Ultrasound-guided paracentesis.
== END | disposition home or self-care (01) ==
LOC: RAH 09:02
PROVIDERS: ATTEND Internal Medicine Gastroenterology
DX: K70.31 Alcoholic cirrhosis of liver with ascites (principal); K21.9 Gastro-esophageal reflux disease without esophagitis; I85.10 Secondary esophageal varices without bleeding; R14.0 Abdominal distension (gaseous); K82.9 Disease of gallbladder, unspecified; K21.00 Gastro-esophageal reflux disease with esophagitis, without bleeding; K29.50 Unspecified chronic gastritis without bleeding; Z86.0100 Personal history of colon polyps, unspecified; Z79.899 Other long term (current) drug therapy
CPT/HCPCS: 49083; 84157; 89051; 87071; 87205; 82042; 88305; 88112; C1729

== ENCOUNTER → 2024-07-12 | Outpatient (CLI) | payer OTHER ==
[~2024-07-12] MED LIST changes: +ALBUMIN HUMAN 25% 200 ML IV ONE
--- NOTE | 2024-07-12 11:05 | NUR ---
U/S GUIDED PARACENTESIS PROCEDURE PERFORMED BY DR. Debbie LOUIE. PUNCTURE SITE RLQ AND PATIENT TOLERATED PROCEDURE WELL. TOTAL REMOVED 5.0 LITERS OF CLOUDY, YELLOW FLUID- SPECIMEN SENT TO LAB. ALBUMIN 25% 50 GRAMS IV GIVEN DURING PROCEDURE. END OF PROCEDURE AT 1050. CATHETER REMOVED AND DRESSING APPLIED- NO BLEEDING NOTED. DISCHARGE INSTRUCTIONS GIVEN TO PATIENT AND VERBALIZED UNDERSTANDING. PATIENT DISCHARGED VIA AMBULATORY IN STABLE CONDITION WITH NO C/O PAIN.
--- NOTE | 2024-07-12 12:26 | HMCIMG ---
US ABDOMINAL PARACENTESIS IR HISTORY: Ascites COMPARISON: None TECHNIQUE: Informed consent was obtained. Risks and benefits were explained to the patient. A timeout was performed. Patient was prepped and draped in a sterile fashion. Local anesthetics was given as required. Under ultrasound guidance, ascites fluid was localized. Paracentesis was performed. FINDINGS: 5 L of yellowish fluid was aspirated. Less than 2 cc blood loss is noted. Patient tolerated procedure without complication. Patient left the department in good condition. IMPRESSION: 1. Uncomplicated ultrasound guidance paracentesis.
[2024-07-12 16:28] LABS: ALBUMIN,BODY FLUID 1.4 g/dL; TOTAL PROTEIN,BODY FLUID 2.9 g/dL
[2024-07-12 16:38] LABS: BODY FLUID RBC 344 /cu. mm.; BODY FLUID WBC 112 /cu. mm.
[2024-07-12 17:19] LABS: APPEARANCE BODY FLUID CLEAR (CLEAR); COLOR,BODY FLUID YELLOW (LT YELLOW); SPECIMENTYPE,BODY FLUID ASCITES; TOTAL VOLUME,BODY FLUID 5000 mL
[2024-07-12 18:48] LABS: BF LYMPHOCYTE 14 %; BF MACROPHAGE 76; BF MESOTHELIAL 4 %; BF OTHER CELLS 3; BF TOTAL CELLS COUNTED 100
== END | disposition home or self-care (01) ==
LOC: RAH 09:52
PROVIDERS: ATTEND Internal Medicine Gastroenterology
DX: K70.31 Alcoholic cirrhosis of liver with ascites (principal); K21.9 Gastro-esophageal reflux disease without esophagitis; Z86.0100 Personal history of colon polyps, unspecified; Z79.899 Other long term (current) drug therapy
CPT/HCPCS: 49083; 84157; 89051; 87071; 87076; 87205; 82042; 88305; 88112; P9046; C1729

== ENCOUNTER → 2024-07-27 | Outpatient (CLI) | payer OTHER ==
[2024-07-27 11:04] LABS: BASOPHILS # (AUTO) 0.02 K/uL (0.00-0.20); BASOPHILS % (AUTO) 0.8 % (0.0-5.0); EOSINOPHILS # (AUTO) 0.02 K/uL (0.00-0.70); EOSINOPHILS % (AUTO) 0.8 % (0.0-8.0); HEMATOCRIT 32.6 % (42-54); LYMPHOCYTES # (AUTO) 0.6 K/uL (1.0-4.8); LYMPHOCYTES % (AUTO) 21.5 % (21.0-51.0); MEAN CORPUSCULAR HEMOGLOBIN 31.1 pg (27.0-33.0); MEAN CORPUSCULAR HGB CONC 33.4 g/dL (32.0-36.0); MEAN CORPUSCULAR VOLUME 93.1 fL (79-99); MONOCYTES # (AUTO) 0.4 K/uL (0.1-1.0); NEUTROPHILS # (AUTO) 1.6 K/uL (1.8-7.7); NEUTROPHILS % (AUTO) 61.9 % (40.0-77.0); PLATELET COUNT (AUTO) 65 K/uL (130-400); RED CELL DISTRIBUTION WIDTH 15.4 % (11.0-15.5); WHITE BLOOD COUNT (AUTO) 2.6 K/uL (4.8-10.8)
[2024-07-27 11:14] LABS: ALBUMIN 2.8 g/dL (3.5-5.0); BILIRUBIN,TOTAL 2.3 mg/dL (0.2-1.0); CREATININE 0.6 mg/dL (0.5-1.3); POTASSIUM 3.2 mmol/L (3.5-5.1); TOTAL PROTEIN, SERUM 7.2 g/dL (6.0-8.3)
--- NOTE | 2024-07-27 11:30 | NUR ---
U/S GD PARACENTESIS PROCEDURE PERFORMED BY DR Cecille LOUIE. PUNCTURE SITE RLQ AND PATIENT TOLERATED PROCEDURE WELL. TOTAL REMOVED 9 LITERS OF CLOUDY YELLOW FLUID. ALBUMIN 25% 50 GRAMS IV GIVEN DURING PROCEDURE. SPECIMEN SENT TO LAB. END OF PROCEDURE AT 1100. CATHETER REMOVED AND DRESSING APPLIED. NO BLEEDING NOTED. DISCHARGE INSTRUCTIONS GIVEN TO PATIENT AND VERBALIZED UNDERSTANDING. DISCHARGED VIA AMBUALTION AT 1130. AAO X3 WITH NO C/O PAIN.
[2024-07-27 11:59] LABS: INR 1.16 (0.85-1.15); PROTHROMBIN TIME 12.4 SEC (9.6-11.6)
[2024-07-27 12:01] LABS: PARTIAL THROMBOPLASTIN TIME 30.8 SEC (26.3-35.5)
[2024-07-27 12:02] LABS: BASOPHILS % (MANUAL) 1 % (0-2); LYMPHOCYTES % (MANUAL) 19 % (22-44); MAN.DIFF COMMENT-IMPRESSION MANUAL DIFFERENTIAL; MONOCYTES % (MANUAL) 7 % (2-9); PLATELET MORPHOLOGY COMMENT DECREASED; REACTIVE LYMPHOCYTES 1 % (0-0); SEGMENTED NEUTROPHILS % 72 % (40-70); TOTAL CELLS COUNTED 100
--- NOTE | 2024-07-27 12:04 | HMCIMG ---
US ABDOMINAL PARACENTESIS IR HISTORY: Ascites COMPARISON: None TECHNIQUE: Informed consent was obtained. Risks and benefits were explained to the patient. A timeout was performed. Patient was prepped and draped in a sterile fashion. Local anesthetics was given as required. Under ultrasound guidance, ascites fluid was localized. Paracentesis was performed. FINDINGS: 7.2 L of yellowish fluid was aspirated. Less than 2 cc blood loss is noted. Patient tolerated procedure without complication. Patient left the department in good condition. IMPRESSION: 1. Uncomplicated ultrasound guidance paracentesis.
[2024-07-27 15:24] LABS: ALBUMIN,BODY FLUID 1.1 g/dL; TOTAL PROTEIN,BODY FLUID 2.2 g/dL
[2024-07-27 15:43] LABS: APPEARANCE BODY FLUID CLOUDY (CLEAR); SPECIMENTYPE,BODY FLUID ASCITES; TOTAL VOLUME,BODY FLUID 9000 mL
[2024-07-27 15:44] LABS: COLOR,BODY FLUID YELLOW (LT YELLOW)
[2024-07-27 16:08] LABS: BODY FLUID RBC 4607 /cu. mm.; BODY FLUID WBC 45 /cu. mm.
[2024-07-27 17:22] LABS: BF LYMPHOCYTE 64 %; BF MESOTHELIAL 19 %; BF MONOCYTE 3 %; BF TOTAL CELLS COUNTED 100
== END | disposition home or self-care (01) ==
LOC: RAH 09:16
PROVIDERS: ATTEND Internal Medicine Gastroenterology
DX: K70.31 Alcoholic cirrhosis of liver with ascites (principal); I85.10 Secondary esophageal varices without bleeding; R14.0 Abdominal distension (gaseous); K82.9 Disease of gallbladder, unspecified; K21.00 Gastro-esophageal reflux disease with esophagitis, without bleeding; Z86.0100 Personal history of colon polyps, unspecified; Z79.899 Other long term (current) drug therapy
CPT/HCPCS: 49083; 84157; 80053; 85025; 89051; 85610; 85730; 87071; 87205; 82042; 36415; 88108; 88305; P9046; C1729

== ENCOUNTER → 2024-08-09 | Outpatient (CLI) | payer OTHER ==
--- NOTE | 2024-08-09 10:20 | NUR ---
U/S GD PARACENTESIS TOLERATED PROCEDURE. PERFORMED BY DR Cecille LOUIE. 4.8 LITERS OF YELLOW CLOUDY FLUID REMOVED. PUNCTURE SITE TO RLQ. SPECIMEN SENT TO LAB. ALBUMIN 25% 50 GRAMS GIVEN IV. END OF PROCEDURE AT 1000. DRESSING DRY AND INTACT. NO BLEEDING NOTED. DISCHARGE INSTRUCTIONS GIVEN. VERBALIZED UNDERSTANDING. SUYAPA PAIN. DISCHARGE VIA AMBULATORY. DENIES PAIN. A&O.
--- NOTE | 2024-08-09 11:26 | HMCIMG ---
US ABDOMINAL PARACENTESIS IR HISTORY: Ascites COMPARISON: None TECHNIQUE: Informed consent was obtained. Risks and benefits were explained to the patient. A timeout was performed. Patient was prepped and draped in a sterile fashion. Local anesthetics was given as required. Under ultrasound guidance, ascites fluid was localized. Paracentesis was performed. FINDINGS: 4.8 L of yellowish fluid was aspirated. Less than 2 cc blood loss is noted. Patient tolerated procedure without complication. Patient left the department in good condition. IMPRESSION: 1. Uncomplicated ultrasound guidance paracentesis.
[2024-08-09 16:13] LABS: BODY FLUID RBC 6396 /cu. mm.; BODY FLUID WBC 82 /cu. mm.
[2024-08-09 16:19] LABS: ALBUMIN,BODY FLUID 1.2 g/dL; TOTAL PROTEIN,BODY FLUID 2.5 g/dL
[2024-08-09 16:23] LABS: APPEARANCE BODY FLUID CLOUDY (CLEAR); COLOR,BODY FLUID ORANGE (LT YELLOW); SPECIMENTYPE,BODY FLUID ASCITES; TOTAL VOLUME,BODY FLUID 4800 mL
[2024-08-09 16:53] LABS: BF LYMPHOCYTE 8 %; BF MACROPHAGE 84; BF MESOTHELIAL 1 %; BF MONOCYTE 1 %; BF OTHER CELLS 2; BF TOTAL CELLS COUNTED 100
== END | disposition home or self-care (01) ==
LOC: RAH 09:12
PROVIDERS: ATTEND Internal Medicine Gastroenterology
DX: K70.31 Alcoholic cirrhosis of liver with ascites (principal); K21.00 Gastro-esophageal reflux disease with esophagitis, without bleeding; I85.10 Secondary esophageal varices without bleeding; K82.9 Disease of gallbladder, unspecified; Z86.0100 Personal history of colon polyps, unspecified; Z79.899 Other long term (current) drug therapy
CPT/HCPCS: 49083; 84157; 89051; 87071; 87076; 87205; 82042; 88108; 88305; P9046; C1729; 96365

== ENCOUNTER → 2024-08-21 | Outpatient (CLI) | payer OTHER ==
--- NOTE | 2024-08-21 09:50 | NUR ---
ULTRASOUND GUIDED PARACENTESIS PROCEDURE PERFORMED BY DR. Cecilia FALK. PUNCTURE SITE RLQ AND PATIENT TOLERATED PROCEDURE WELL. TOTAL REMOVED 5 LITERS OF CLOUDY, YELLOW FLUID- SPECIMEN SENT TO LAB. END OF PROCEDURE AT 0930. ALBUMIN 25% 50 GRAMS GIVEN IV. CATHETER REMOVED AND DRESSING APPLIED- NO BLEEDING NOTED. DISCHARGE INSTRUCTION GIVEN. VERBALIZED UNDERSTANDING. DISCHARGE VIA AMBULATORY. DENIES PAIN. A&O.
--- NOTE | 2024-08-21 10:39 | HMCIMG ---
US ABDOMINAL PARACENTESIS IR REASON: ASCITES TECHNIQUE: Paracentesis was performed with ultrasound guidance. The puncture site was selected in the Right lower quadrant and overlying skin prepped and draped in a sterile fashion. 1% Xylocaine infiltration was performed. Catheter was placed in the fluid using trocar technique. 5 L were removed. Fluid sample was submitted for laboratory evaluation. The patient showed no evidence of complication during the procedure. IMPRESSION: 1. Ultrasound-guided paracentesis.
[2024-08-21 11:33] LABS: BODY FLUID RBC 1181 /cu. mm.; BODY FLUID WBC 183 /cu. mm.
[2024-08-21 11:43] LABS: ALBUMIN,BODY FLUID 1.1 g/dL; TOTAL PROTEIN,BODY FLUID 2.5 g/dL
[2024-08-21 13:13] LABS: BF EOSINOPHIL 1 %; BF LYMPHOCYTE 30 %; BF MACROPHAGE 36; BF MESOTHELIAL 19 %; BF MONOCYTE 12 %; BF TOTAL CELLS COUNTED 100
[2024-08-21 13:15] LABS: APPEARANCE BODY FLUID SLIGHTLY CLOUDY (CLEAR); COLOR,BODY FLUID YELLOW (LT YELLOW); SPECIMENTYPE,BODY FLUID ASCITES; TOTAL VOLUME,BODY FLUID 5000 mL
== END | disposition home or self-care (01) ==
LOC: RAH 08:35
PROVIDERS: ATTEND Internal Medicine Gastroenterology
DX: K70.31 Alcoholic cirrhosis of liver with ascites (principal); Z87.891 Personal history of nicotine dependence; I85.00 Esophageal varices without bleeding; K21.00 Gastro-esophageal reflux disease with esophagitis, without bleeding; K29.50 Unspecified chronic gastritis without bleeding; Z79.899 Other long term (current) drug therapy; Z86.0100 Personal history of colon polyps, unspecified
CPT/HCPCS: 49083; 84157; 89051; 87071; 87076; 87205; 82042; 88108; 88305; P9046; C1729; 96365

== ENCOUNTER → 2024-09-06 | Outpatient (CLI) | payer OTHER ==
[~2024-09-06] MED LIST changes: +CYCL5TAB3 PO; +IBUP-2070 PO
--- NOTE | 2024-09-06 11:00 | NUR ---
U/S GD PARACENTESIS TOLERATED PROCEDURE. PERFORMED BY DR Cecilia FALK. 6.5 LITERS OF YELLOW CLOUDY FLUID REMOVED. PUNCTURE SITE TO LLQ. ALBUMIN 25% 50 GRAMS GIVEN. END OF PROCEDURE AT 1040. DRESSING APPLIED DRY AND INTACT. SPECIMEN SENT TO LAB. DISCHARGE INSTRUCTIONS GIVEN. VERBALIZED UNDERSTANDING. DISCHARGE VIA AMBULATORY. DENIES PAIN. A&O.
[2024-09-06 12:03] LABS: BASOPHILS # (AUTO) 0.02 K/uL (0.00-0.20); BASOPHILS % (AUTO) 1.2 % (0.0-5.0); EOSINOPHILS # (AUTO) 0.01 K/uL (0.00-0.70); EOSINOPHILS % (AUTO) 0.6 % (0.0-8.0); HEMATOCRIT 28.6 % (42-54); LYMPHOCYTES # (AUTO) 0.5 K/uL (1.0-4.8); LYMPHOCYTES % (AUTO) 29.8 % (21.0-51.0); MEAN CORPUSCULAR HEMOGLOBIN 31.8 pg (27.0-33.0); MEAN CORPUSCULAR HGB CONC 33.6 g/dL (32.0-36.0); MEAN CORPUSCULAR VOLUME 94.7 fL (79-99); MONOCYTES # (AUTO) 0.4 K/uL (0.1-1.0); MONOCYTES % (AUTO) 22.2 % (3.0-13.0); NEUTROPHILS # (AUTO) 0.8 K/uL (1.8-7.7); NEUTROPHILS % (AUTO) 46.2 % (40.0-77.0); PLATELET COUNT (AUTO) 73 K/uL (130-400); RED BLOOD CELL COUNT(AUTO) 3.02 MIL/uL (4.50-6.20); WHITE BLOOD COUNT (AUTO) 1.7 K/uL (4.8-10.8)
[2024-09-06 12:12] LABS: INR 1.14 (0.85-1.15); PROTHROMBIN TIME 12.6 SEC (9.6-11.6)
[2024-09-06 12:14] LABS: PARTIAL THROMBOPLASTIN TIME 31.4 SEC (26.3-35.5)
[2024-09-06 12:15] LABS: ALBUMIN 3.5 g/dL (3.5-5.0); BILIRUBIN,TOTAL 1.5 mg/dL (0.2-1.0); CREATININE 0.5 mg/dL (0.5-1.3); POTASSIUM 3.3 mmol/L (3.5-5.1); TOTAL PROTEIN, SERUM 7.5 g/dL (6.0-8.3)
[2024-09-06 13:02] LABS: TOTAL PROTEIN,BODY FLUID 2.3 g/dL
--- NOTE | 2024-09-06 13:05 | HMCIMG ---
US ABDOMINAL PARACENTESIS IR REASON: ALCOHOLIC CIRRHOSIS OF LIVER WITH ASCITES TECHNIQUE: Paracentesis was performed with ultrasound guidance. The puncture site was selected in the Right lower quadrant and overlying skin prepped and draped in a sterile fashion. 1% Xylocaine infiltration was performed. Catheter was placed in the fluid using trocar technique. 6.5 L were removed. Fluid sample was submitted for laboratory evaluation. The patient showed no evidence of complication during the procedure. IMPRESSION: 1. Ultrasound-guided paracentesis.
[2024-09-06 13:17] LABS: BODY FLUID RBC 90 /cu. mm.; BODY FLUID WBC 189 /cu. mm.
[2024-09-06 13:59] LABS: BF LYMPHOCYTE 34 %; BF MACROPHAGE 61; BF MESOTHELIAL 1 %; BF MONOCYTE 4 %; BF TOTAL CELLS COUNTED 100
[2024-09-06 14:06] LABS: APPEARANCE BODY FLUID SLIGHTLY CLOUDY (CLEAR); COLOR,BODY FLUID YELLOW (LT YELLOW); SPECIMENTYPE,BODY FLUID ASCITES; TOTAL VOLUME,BODY FLUID 6500 mL
== END ==
LOC: RAH 09:28
PROVIDERS: ATTEND Internal Medicine Gastroenterology
DX: K70.31 Alcoholic cirrhosis of liver with ascites (principal); K82.9 Disease of gallbladder, unspecified; K21.00 Gastro-esophageal reflux disease with esophagitis, without bleeding; I85.00 Esophageal varices without bleeding; R11.0 Nausea; R14.0 Abdominal distension (gaseous); E87.6 Hypokalemia; I10 Essential (primary) hypertension; E66.9 Obesity, unspecified; Z86.0100 Personal history of colon polyps, unspecified; Z86.2 Personal history of diseases of the blood and blood-forming organs and certain disorders involving the immune mechanism; Z79.899 Other long term (current) drug therapy; Z68.1 Body mass index [BMI] 19.9 or less, adult
CPT/HCPCS: 49083; 84157; 80053; 85025; 89051; 85610; 85730; 87071; 87076; 87205; 82042; 36415; 88108; 88305; P9046; C1729

== ENCOUNTER → 2024-09-20 | Outpatient (CLI) | payer OTHER ==
[~2024-09-20] MED LIST changes: -CYCL5TAB3 PO; -IBUP-2070 PO
--- NOTE | 2024-09-20 10:50 | NUR ---
U/S GD PARACENTESIS TOLERATED PROCEDURE. PERFORM BY DR Cecilia FALK. 7.2 LITERS OF CLOUDY YELLOW FLUID REMOVED FROM RLQ. SPECIMEN SENT TO LAB. ALBUMIN 25% 50 GRAMS GIVEN IV. END OF PROCEDURE AT 1030. DRESSING DRY AND INTACT. NO BLEEDING NOTED. DISCHARGE INSTRUCTIONS GIVEN. VERBALIZED UNDERSTANDING. DISCHARGE VIA AMBULATORY. DENIES PAIN. A&O.
--- NOTE | 2024-09-20 12:48 | HMCIMG ---
US ABDOMINAL PARACENTESIS IR REASON: ASCITES TECHNIQUE: Paracentesis was performed with ultrasound guidance. The puncture site was selected in the Right lower quadrant and overlying skin prepped and draped in a sterile fashion. 1% Xylocaine infiltration was performed. Catheter was placed in the fluid using trocar technique. 7.2 L were removed. Fluid sample was submitted for laboratory evaluation. The patient showed no evidence of complication during the procedure. IMPRESSION: 1. Ultrasound-guided paracentesis.
[2024-09-20 13:20] LABS: ALBUMIN,BODY FLUID 0.9 g/dL; TOTAL PROTEIN,BODY FLUID 2.1 g/dL
[2024-09-20 13:54] LABS: BODY FLUID RBC 153 /cu. mm.; BODY FLUID WBC 144 /cu. mm.
[2024-09-20 13:57] LABS: APPEARANCE BODY FLUID CLEAR (CLEAR); COLOR,BODY FLUID YELLOW (LT YELLOW); SPECIMENTYPE,BODY FLUID ASCITES
[2024-09-20 13:58] LABS: TOTAL VOLUME,BODY FLUID 7200 mL
[2024-09-20 16:03] LABS: BF LYMPHOCYTE 15 %; BF MACROPHAGE 68; BF OTHER CELLS 13; BF TOTAL CELLS COUNTED 100
== END | disposition home or self-care (01) ==
LOC: RAH 09:25
PROVIDERS: ATTEND Internal Medicine Gastroenterology
DX: K70.31 Alcoholic cirrhosis of liver with ascites (principal); K21.00 Gastro-esophageal reflux disease with esophagitis, without bleeding; K29.50 Unspecified chronic gastritis without bleeding; E87.6 Hypokalemia; I85.00 Esophageal varices without bleeding; Z86.0100 Personal history of colon polyps, unspecified; Z79.899 Other long term (current) drug therapy
CPT/HCPCS: 49083; 84157; 89051; 87071; 87205; 82042; P9046; C1729; 96365

== ENCOUNTER → 2024-10-04 | Outpatient (CLI) | payer OTHER ==
[2024-10-04 10:17] LABS: BASOPHILS # (AUTO) 0.01 K/uL (0.00-0.20); BASOPHILS % (AUTO) 0.4 % (0.0-5.0); EOSINOPHILS # (AUTO) 0.04 K/uL (0.00-0.70); EOSINOPHILS % (AUTO) 1.4 % (0.0-8.0); HEMATOCRIT 35.6 % (42-54); IMMATURE GRANULOCYTE ABSOLUTE 0.02 K/uL (0-1); LYMPHOCYTES # (AUTO) 0.8 K/uL (1.0-4.8); LYMPHOCYTES % (AUTO) 27.1 % (21.0-51.0); MEAN CORPUSCULAR HEMOGLOBIN 31.2 pg (27.0-33.0); MEAN CORPUSCULAR HGB CONC 33.7 g/dL (32.0-36.0); MEAN CORPUSCULAR VOLUME 92.5 fL (79-99); MONOCYTES # (AUTO) 0.7 K/uL (0.1-1.0); MONOCYTES % (AUTO) 23.6 % (3.0-13.0); NEUTROPHILS # (AUTO) 1.3 K/uL (1.8-7.7); NEUTROPHILS % (AUTO) 46.8 % (40.0-77.0); PLATELET COUNT (AUTO) 74 K/uL (130-400); RED BLOOD CELL COUNT(AUTO) 3.85 MIL/uL (4.50-6.20); RED CELL DISTRIBUTION WIDTH 15.4 % (11.0-15.5); WHITE BLOOD COUNT (AUTO) 2.8 K/uL (4.8-10.8)
[2024-10-04 10:34] LABS: INR 1.14 (0.85-1.15); PROTHROMBIN TIME 12.6 SEC (9.6-11.6)
[2024-10-04 10:35] LABS: PARTIAL THROMBOPLASTIN TIME 31.4 SEC (26.3-35.5)
--- NOTE | 2024-10-04 10:50 | NUR ---
TOLERATED PROCEDURE. PERFORMED BY DR Cecille LOUIE. PUNCTURE SITE TO RLQ. 9.5 LITERS OF YELLOW CLOUDY FLUID REMOVED AND SENT TO LAB. ALBUMIN 25% 50 GRAMS GIVEN IV. END OF PROCEDURE AT 1030. DRESSING DRY AND INTACT. NO BLEEDING NOTED. DISCHARGE INSTRUCTIONS GIVEN. VERBALIZED UNDERSTANDING. DISCHARGE VIA AMBULATORY. DENIES PAIN. A&O.
[2024-10-04] MEDS: ALBUMIN HUMAN 25% 100 ML IV ONE (11:15)
[2024-10-04 11:19] LABS: ALBUMIN 2.5 g/dL (3.5-5.0); BILIRUBIN,TOTAL 1.5 mg/dL (0.2-1.0); CREATININE 0.9 mg/dL (0.5-1.3); TOTAL PROTEIN, SERUM 7.5 g/dL (6.0-8.3)
[2024-10-04 11:23] LABS: POTASSIUM 2.7 mmol/L (3.5-5.1)
--- NOTE | 2024-10-04 12:10 | HMCIMG ---
US ABDOMINAL PARACENTESIS IR HISTORY: Ascites COMPARISON: None TECHNIQUE: Informed consent was obtained. Risks and benefits were explained to the patient. A timeout was performed. Patient was prepped and draped in a sterile fashion. Local anesthetics was given as required. Under ultrasound guidance, ascites fluid was localized. Paracentesis was FINDINGS: 9.5 L of yellowish fluid was aspirated. Less than 2 cc blood loss is noted. Patient tolerated procedure without complication. Patient left the department in good condition. IMPRESSION: 1. . Ultrasound guidance paracentesis.
[2024-10-04 12:25] LABS: BAND NEUTROPHILS % (MANUAL) 1 % (0-2); EOSINOPHILS % (MANUAL) 4 % (1-6); LYMPHOCYTES % (MANUAL) 12 % (22-44); MAN.DIFF COMMENT-IMPRESSION MANUAL DIFFERENTIAL; MONOCYTES % (MANUAL) 19 % (2-9); SEGMENTED NEUTROPHILS % 64 % (40-70); TOTAL CELLS COUNTED 100
[2024-10-04 12:26] LABS: PLATELET MORPHOLOGY COMMENT DECREASED
[2024-10-04 16:13] LABS: APPEARANCE BODY FLUID CLEAR (CLEAR); BODY FLUID RBC 116 /cu. mm.; BODY FLUID WBC 36 /cu. mm.; COLOR,BODY FLUID YELLOW (LT YELLOW); SPECIMENTYPE,BODY FLUID ASCITES; TOTAL VOLUME,BODY FLUID 9500 mL
[2024-10-04 16:15] LABS: ALBUMIN,BODY FLUID 0.7 g/dL
[2024-10-04 16:20] LABS: TOTAL PROTEIN,BODY FLUID < 2.0 g/dL
== END | disposition home or self-care (01) ==
LOC: RAH 09:10
PROVIDERS: ATTEND Internal Medicine Gastroenterology
DX: K70.31 Alcoholic cirrhosis of liver with ascites (principal); K29.50 Unspecified chronic gastritis without bleeding; E87.6 Hypokalemia; I85.00 Esophageal varices without bleeding; K21.9 Gastro-esophageal reflux disease without esophagitis; Z86.2 Personal history of diseases of the blood and blood-forming organs and certain disorders involving the immune mechanism; Z86.0100 Personal history of colon polyps, unspecified; Z79.899 Other long term (current) drug therapy; Z98.890 Other specified postprocedural states
CPT/HCPCS: 49083; 84157; 80053; 85025; 89051; 85610; 85730; 87071; 87205; 82105; 82042; 36415; 88108; 88305; P9046; C1729; 96365

== ENCOUNTER → 2024-10-18 | Outpatient (CLI) | payer OTHER ==
[~2024-10-18] MED LIST changes: +CYCL5TAB3 PO; +IBUP-2070 PO; +TRAM50TA4 PO
[2024-10-18] MEDS: ALBUMIN HUMAN 25% 200 ML IV ONE (10:15)
[2024-10-18 10:17] LABS: BASOPHILS # (AUTO) 0.03 K/uL (0.00-0.20); BASOPHILS % (AUTO) 1.2 % (0.0-5.0); EOSINOPHILS # (AUTO) 0.01 K/uL (0.00-0.70); EOSINOPHILS % (AUTO) 0.4 % (0.0-8.0); IMMATURE GRANULOCYTE ABSOLUTE 0.01 K/uL (0-1); LYMPHOCYTES # (AUTO) 0.5 K/uL (1.0-4.8); MEAN CORPUSCULAR HEMOGLOBIN 30.7 pg (27.0-33.0); MEAN CORPUSCULAR HGB CONC 33.4 g/dL (32.0-36.0); MONOCYTES # (AUTO) 0.6 K/uL (0.1-1.0); MONOCYTES % (AUTO) 25.2 % (3.0-13.0); NEUTROPHILS # (AUTO) 1.3 K/uL (1.8-7.7); NEUTROPHILS % (AUTO) 53.8 % (40.0-77.0); PLATELET COUNT (AUTO) 129 K/uL (130-400); RED BLOOD CELL COUNT(AUTO) 3.48 MIL/uL (4.50-6.20); RED CELL DISTRIBUTION WIDTH 16.7 % (11.0-15.5); WHITE BLOOD COUNT (AUTO) 2.4 K/uL (4.8-10.8)
[2024-10-18 10:26] LABS: INR 1.08 (0.85-1.15); PROTHROMBIN TIME 11.4 SEC (9.6-11.6)
[2024-10-18 10:27] LABS: PARTIAL THROMBOPLASTIN TIME 30.4 SEC (26.3-35.5)
[2024-10-18 10:29] LABS: ALBUMIN 2.8 g/dL (3.5-5.0); BILIRUBIN,TOTAL 1.3 mg/dL (0.2-1.0); CREATININE 0.5 mg/dL (0.5-1.3); POTASSIUM 3.5 mmol/L (3.5-5.1)
--- NOTE | 2024-10-18 10:40 | NUR ---
ULTRASOUND GUIDED PARACENTESIS PROCEDURE PERFORMED BY DR. LOUIE. PUNCTURE SITE RLQ- PATIENT TOLERATED PROCEDURE WELL. TOTAL REMOVED 2.5 LITERS OF CLOUDY, YELLOW FLUID. ALBUMIN 25% 50 GRAMS IV GIVEN DURING PROCEDURE. SPECIMEN SENT TO LAB. END OF PROCEDURE AT 1020. CATHETER REMOVED AND DRESSING APPLIED- NO BLEEDING NOTED. DISCHARGE INSTRUCTIONS GIVEN TO PATIENT AND VERBALIZED UNDERSTANDING. DISCHARGED VIA AMBULATORY. AAO X3 WITH NO C/O PAIN.
[2024-10-18 10:57] LABS: EOSINOPHILS % (MANUAL) 2 % (1-6); LYMPHOCYTES % (MANUAL) 18 % (22-44); MAN.DIFF COMMENT-IMPRESSION MANUAL DIFFERENTIAL; MONOCYTES % (MANUAL) 21 % (2-9); PLATELET MORPHOLOGY COMMENT DECREASED; SEGMENTED NEUTROPHILS % 59 % (40-70); TOTAL CELLS COUNTED 100; WBC MORPHOLOGY CONSISTENT W/DIFF
[2024-10-18 14:01] LABS: BODY FLUID RBC 2833 /cu. mm.; BODY FLUID WBC 265 /cu. mm.
[2024-10-18 14:24] LABS: BF LYMPHOCYTE 20 %; BF MACROPHAGE 48; BF MESOTHELIAL 27 %; BF MONOCYTE 1 %; BF TOTAL CELLS COUNTED 100
[2024-10-18 14:29] LABS: SPECIMENTYPE,BODY FLUID ASCITES
[2024-10-18 14:30] LABS: APPEARANCE BODY FLUID SLIGHTLY CLOUDY (CLEAR); COLOR,BODY FLUID YELLOW (LT YELLOW); TOTAL VOLUME,BODY FLUID 2500 mL
== END | disposition home or self-care (01) ==
LOC: RAH 09:29
PROVIDERS: ATTEND Internal Medicine Gastroenterology
DX: K70.31 Alcoholic cirrhosis of liver with ascites (principal); I85.00 Esophageal varices without bleeding; K21.9 Gastro-esophageal reflux disease without esophagitis; K29.50 Unspecified chronic gastritis without bleeding; R14.0 Abdominal distension (gaseous); E87.6 Hypokalemia; K82.9 Disease of gallbladder, unspecified; Z86.2 Personal history of diseases of the blood and blood-forming organs and certain disorders involving the immune mechanism; Z86.0100 Personal history of colon polyps, unspecified; Z79.899 Other long term (current) drug therapy
CPT/HCPCS: 49083; 80053; 85025; 89051; 85610; 85730; 36415; P9046; C1729; 96365

== ENCOUNTER → 2024-11-01 | Outpatient (CLI) | payer OTHER ==
--- NOTE | 2024-11-01 10:40 | NUR ---
U/S GD PARACENTESIS TOLERATED PROCEDURE. PERFORMED BY DR Tyson BRANDON. 6.0 LITERS OF YELLOW CLOUDY FLUID REMOVED AND SENT TO LAB. PUNCTURE SITE TO RLQ. ALBUMIN 25% 50 GRAMS GIVEN PER PROTOCOL. END OF PROCEDRUE AT 1020. DRESSING APPLIED. NO BLEEDING NOTED. DISCHARGE INSTRUCTIONS GIVEN. VERBALIZED UNDERSTANDING. DISCHARGE VIA AMBULATORY. DENIES PAIN. A&O.
[2024-11-01] MEDS: ALBUMIN HUMAN 25% 200 ML IV ONE (11:19)
--- NOTE | 2024-11-01 11:27 | HMCIMG ---
ULTRASOUND GUIDED PARACENTESIS: INDICATION: Ascites TECHNIQUE: Informed consent was obtained. Timeout performed. All elements of maximal sterile barrier technique, including hand hygiene and cutaneous antisepsis were used. Patient was placed supine. Right lower quadrant was prepped and draped in sterile fashion. Local anesthesia was applied. Then, under ultrasound guidance, a 5F centesis needle was advanced through the abdominal wall and into a pocket of fluid in the peritoneum. It yielded 6.0 L of fluid. The catheter was removed and sterile dressing applied. Blood pressure monitoring was performed during the procedure. Complications: None Blood loss: <5 mL. IMPRESSION: Successful ultrasound guided paracentesis.
[2024-11-01 13:56] LABS: SPECIMENTYPE,BODY FLUID ASCITES
[2024-11-01 13:57] LABS: APPEARANCE BODY FLUID SLIGHTLY CLOUDY (CLEAR); COLOR,BODY FLUID YELLOW (LT YELLOW); TOTAL VOLUME,BODY FLUID 6000 mL
[2024-11-01 14:10] LABS: BODY FLUID RBC 838 /cu. mm.; BODY FLUID WBC 99 /cu. mm.
[2024-11-01 15:02] LABS: BF LYMPHOCYTE 29 %; BF MACROPHAGE 8; BF MESOTHELIAL 3 %; BF MONOCYTE 59 %; BF TOTAL CELLS COUNTED 100
== END | disposition home or self-care (01) ==
LOC: RAH 09:28
PROVIDERS: ATTEND Internal Medicine Gastroenterology
DX: K70.31 Alcoholic cirrhosis of liver with ascites (principal); I85.10 Secondary esophageal varices without bleeding; R14.0 Abdominal distension (gaseous); K82.9 Disease of gallbladder, unspecified; K21.00 Gastro-esophageal reflux disease with esophagitis, without bleeding; E87.6 Hypokalemia; E87.1 Hypo-osmolality and hyponatremia; Z86.0100 Personal history of colon polyps, unspecified; Z79.899 Other long term (current) drug therapy
CPT/HCPCS: 49083; 89051; P9046; C1729

== ENCOUNTER 2024-11-06 19:33 | Emergency (ER) | payer OTHER ==
[~2024-11-06] VITALS: Ht 167.6 cm; Wt 57.2 kg
[~2024-11-06 19:33] MED LIST changes: -ALBUMIN HUMAN 25% 200 ML IV ONE; -CYCL5TAB3 PO; -IBUP-2070 PO; -TRAM50TA4 PO
[2024-11-06 19:35] VITALS: BP 105/83; PULSE 94; RESP 20; TEMP 98.2
--- NOTE | 2024-11-06 20:02 | ERN ---
ED Note History of Present Illness Stated Complaint: INJURED DUE TO FALL Chief Complaint: Mechanical Fall Time Seen by MD: 19:51 Time Seen by Midlevel: 20:00 Dictation: Mr. Foreman is a 54-year-old gentleman with history of liver disease/cirrhosis who presented to the emergency department this evening for evaluation after a fall. He states that yesterday he was out fishing and when he bent over to apply bead he slipped off the pier scraping his body on the concrete pillars. He has skin tears, abrasions and bruising to bilateral forearms, abrasions to abdomen, pain to left lower leg, pain right forearm/elbow, pain right foot, and left rib pain. He denies hitting head/+ LOC. He denies fever, chills, shortness of breath, cough, palpitations, edema, nausea, vomiting, diarrhea, hematemesis, melena, hematochezia, dysuria, headache, or dizziness. PCP: Dr. José Antonio Mohamud Allergies: Coded Allergies: No Known Drug Allergies (Unverified Allergy, Unknown, 01/25/19) Home Meds Active Scripts Propranolol HCl (Inderal) 10 Mg Tab, 10 MG PO BID for 30 Days, #60 TAB 2 Refills Prov:HAL COUCH DEHYDROGENATION SUPERVISOR 09/12/19 Reported Medications Spironolactone (Spironolactone) 100 Mg Tablet, 1 TAB PO DAILY 12/26/23 Furosemide (Furosemide) 40 Mg Tablet, 1 TAB PO DAILY 12/26/23 Folic Acid (Folvite) 1 Mg Tab, 1 TAB PO DAILY 12/26/23 Omeprazole (Omeprazole) 40 Mg Capsule.dr, 1 CAP PO DAILY 12/26/23 Lactulose (Enulose) 10 Gram/15 Ml Solution, 15 ML PO BID 12/26/23 Past Medical History Past Medical History: Liver Disease, Other Additional Past Medical Hx: HX OF CIRRHOSIS OF LIVER Surgical History: Other Surgical History Other: PARACENTESIS Social History: Negative RN Note Reviewed/Agreed w/PFSH: Yes Review of System Dictation REVIEW OF SYSTEMS: CONSTITUTIONAL: Patient denies fevers, chills, sweats and weight changes. EYES: Patient denies any visual symptoms. EARS, NOSE, AND THROAT: No difficulties with hearing. No symptoms of rhinitis or sore throat. CARDIOVASCULAR: Patient denies chest pains, palpitations, orthopnea and paroxysmal nocturnal dyspnea. RESPIRATORY: No dyspnea on exertion, no wheezing or cough. Reports left ribs GI: No nausea, vomiting, diarrhea, constipation, abdominal pain, hematochezia or melena. Reports abdominal distention per baseline; history of cirrhosis/ascites. Reports abrasions to abdomen. : No urinary hesitancy or dribbling. No nocturia or urinary frequency. No abnormal urethral discharge. Denies flank pain. Denies hematuria. MUSCULOSKELETAL reports pain to right foot, right forearm/elbow, left lower leg, left ribs NEUROLOGIC: No chronic headaches, no seizures. Patient denies numbness, tingling or weakness. PSYCHIATRIC: Patient denies problems with mood disturbance. No problems with anxiety. ENDOCRINE: No excessive urination or excessive thirst. DERMATOLOGIC: Patient denies any rashes or skin changes. Initial Vital Sign VS Vital Signs Date Time Temp Pulse Resp B/P (MAP) Pulse Ox O2 Delivery O2 Flow Rate FiO2 11/06/24 19:35 98.2 94 20 105/83 99 Room Air Physical Exam Dictation Vital signs: Reviewed. Constitutional: No acute distress. Non-toxic appearing. Head/Face: Normocephalic, atraumatic. Eyes: Periorbital areas with no swelling, redness, or edema. Lids and lashes are normal. Conjunctival injection is absent. Sclera anicteric. Pupils equal, round, reactive to light. ENT: Pinnas intact and no signs of trauma or erythema. Ear canals clear and no discharge. TMs no erythema. No nasal discharge or bleeding noted. Oropharynx with no exudate, redness, swelling, masses, exudates, or evidence of obstruction. Uvula midline. Mucous membranes moist. Neck: Trachea midline, no masses palpated, and no cervical lymphadenopathy. No swelling. Supple, full range of motion. Chest/Axilla: No tenderness, no crepitus, no paradoxical movement, no retractions. Cardiovascular: Regular rate, regular rhythm, no murmur, no gallops. Symmetric pulses. No peripheral edema. Respiratory: Respirations even and unlabored. Lung sounds clear; no wheezes, rales or rhonchi. Room air SpO2 100 %. Tenderness upon palpation left ribs. No deformity or bony crepitus noted. Gastrointestinal: Abdomen slightly distended; small ascites. Bowel sounds are normal. No mass or organomegaly . There is no tenderness. No rebound. No rigidity. No voluntary or involuntary guarding. No Dumont's sign. Abrasions noted Neurological: Normal speech, gross motor function intact, gross sensory function intact. No focal weakness/Paresthesia. Moves all extremities equal/s dieudonne Musculoskeletal/Extremities: Symmetric pulses. All extremities strength 5/5. Pain with range of motion bilateral elbows, left knee, and right foot. Integumentary:Skin is normal color, warm and dry. Cap refill less than 3 seconds. There is dark purple bruising, abrasions, and skin tears to bilateral forearms. Results (Laboratory/Radiology) X-RAY Comment: PATIENT: KATIE FOREMAN MR#: [id number] : 1970 SEX: M AGE: 54 LOCATION: [facility] ORDER 32 STATUS: [facility] REPORT#: [id number] SERVICE 31 REASON: fall, left rib pain ORDERING PHYSICIAN: JAY CHAVARRIA NP PROCEDURE: CXR1VW - CHEST 1VW INDICATION: fall, left rib pain TECHNIQUE: CHEST 1VW COMPARISON: 12/26/2022 FINDINGS AND IMPRESSION: Prominent bilateral interstitial markings which may represent bronchitis or vascular congestion in the proper clinical setting. Cardiac silhouette is within normal limits. Mild degenerative changes of the spine. The visualized upper abdomen appears unremarkable. ATIENT: KATIE FOREMAN MR#: [id number] : 1970 SEX: M AGE: 54 LOCATION: ED ORDER 06 STATUS: [facility] REPORT#: [id number] SERVICE 04 REASON: FALL, LACERATIONS ORDERING PHYSICIAN: JAY CHAVARRIA NP PROCEDURE: TIBFIB LT - TIBIA/FIBULA 2VWS LT TIBIA/FIBULA 2VWS LT INDICATION: FALL, LACERATIONS TECHNIQUE: TIBIA/FIBULA 2VWS LT. FINDINGS AND IMPRESSION: No displaced fracture or dislocation is seen. Correlate clinically. There is mild soft tissue swelling No radiopaque foreign body is identified. DICTATED BY: UTE SABILLON MD DATE: 11/06/242114 ELECTRONICALLY SIGNED BY: UTE SABILLON MD DATE: 11/06/242117 DICTATED BY: UTE SABILLON MD DATE: 11/06/242112 ELECTRONICALLY SIGNED BY: UTE SABILLON MD DATE: 11/06/242115 PATIENT: KATIE FOREMAN MR#: [id number] : 1970 SEX: M AGE: 54 LOCATION: [facility] ORDER 06 STATUS: [facility] REPORT#: [id number] SERVICE 04 REASON: FALL, LACERATIONS ORDERING PHYSICIAN: JAY CHAVARRIA DEHYDROGENATION SUPERVISOR PROCEDURE: FORARMR - FOREARM 2VWS RT FOREARM 2VWS RT INDICATION: FALL, LACERATIONS TECHNIQUE: FOREARM 2VWS RT. FINDINGS AND IMPRESSION: No displaced fracture or dislocation is seen. Correlate clinically. There is mild soft tissue swelling No radiopaque foreign body is identified. DICTATED BY: UTE SABILLON MD DATE: 11/06/242115 ELECTRONICALLY SIGNED BY: UTE SABILLON MD DATE: 11/06/242117 PATIENT: KATIE FOREMAN MR#: [id number] : 1970 SEX: M AGE: 54 LOCATION: [facility] ORDER 06 [facility]US: [facility] REPORT#: [id number] SERVICE 04 REASON: FALL, LACERATIONS ORDERING PHYSICIAN: JAY CHAVARRIA DEHYDROGENATION SUPERVISOR PROCEDURE: ELB3VW RT - ELBOW COMP 3+VWS RT ELBOW COMP 3+VWS RT INDICATION: FALL, LACERATIONS TECHNIQUE: ELBOW COMP 3+VWS RT. FINDINGS AND IMPRESSION: No displaced fracture or dislocation is seen. Correlate clinically. There is mild soft tissue swelling No radiopaque foreign body is identified. DICTATED BY: UTE SABILLON MD DATE: 11/06/242115 ELECTRONICALLY SIGNED BY: UTE SABILLON MD DATE: 11/06/242117 ED Course ED Course Orders Procedure Category Date Status Time Forearm 2vws Rt RAD 11/06/24 Resulted 20:05 Elbow Comp 3+Vws Rt RAD 11/06/24 Resulted 20:05 Tibia/Fibula 2vws Lt RAD 11/06/24 Resulted 20:05 Tetanus,Diphtheria PHA 11/06/24 Complete Tox [Adult] (Diphther 20:30 Tramadol Hcl (Ultram) PHA 11/06/24 Complete 21:00 Chest 1vw RAD 11/06/24 Resulted 20:32 Current Medications Medications (Trade) Dose Ordered Sig/Chin Route PRN Reason Start Time Stop Time Status Last Admin Dose Admin Tetanus/ Diphtheria Toxoids Adsorbed (DiphthERIA-teTANUS TOXOID [ADULT]/ DECAVAC) 0.5 ml ONCE ONCE IM 11/06/24 20:30 11/06/24 20:31 DC Tramadol HCl (UltRAM) 50 mg ONCE ONCE PO 11/06/24 21:00 11/06/24 21:01 DC Vital Signs Date Time Temp Pulse Resp B/P (MAP) Pulse Ox O2 Delivery O2 Flow Rate FiO2 11/06/24 19:35 98.2 94 20 105/83 99 Room Air Uneventful ED course. Wounds were cleansed well and nonadherent dressing secured with Kyle applied. To bilateral forearms. He received dose tramadol for discomfort as well as updated tetanus toxoid. X-rays were completed. Chest x-ray unremarkable; no fractured ribs. Left tib-fib noted soft tissue sw elling; no fracture or dislocation. Right forearm/right elbow x-rays negative for fracture or dislocation. Findings were discussed with patient and all questions were answered. Medical Decision Making MDM MDM: Differential diagnosis: Rib fracture, fracture left tib-fib, fracture right elbow/forearm Rationale: Tests considered and ordered secondary to shared decision making include: X-ray Previous outside records reviewed: Old ER visits. Risk of complication and/or morbidity or mortality of patient management: None Medications-Per medication reconciliation Need for hospitalization: Patient does not meet criteria for hospitalization. Need for emergency major/minor surgery: No There are no social concerns with this patient. Prescription drug management: Ibuprofen, Flexeril Prescriptions will include symptomatic care Patient's prior external medical records from other ER visits were reviewed by me as indicated. Prior testing and results from previous visits were reviewed. Prior tests were taken into account with medical decision making and resource utilization, independent historian/historians were used to obtain complete medical history. I independently interpreted the test that were performed, results were reviewed by me and considered findings on radiology if ordered. Medical management and examination interpretation discussions were had by me with other qualified healthcare professionals as indicated for the patient's care. DX & DISP Disposition: Discharge Departure Impression: Primary Impression: Contusion Additional Impressions: Abrasion, Skin tear Condition: Stable Scripts Ibuprofen (Ibuprofen) 600 Mg Tablet 1 TAB PO TID for pain, #12 TAB 0 Refills with food Prov: JAY CHAVARRIA NP 11/06/24 Cyclobenzaprine HCl (Cyclobenzaprine HCl) 5 Mg Tablet 1 TAB PO q12 hours PRN PRN for muscle spasms, #10 TAB 0 Refills Prov: JAY CHAVARRIA NP 11/06/24 Additional Instructions: Rest. Wash wounds with mild soap and pat dry gently. Keep clean and dry. Nonadhesive dressings. May take ibuprofen every8 hours as needed for di scomfort. May take Flexeril5 mg every12 hours as needed for muscle spasms. You will need to follow up with your primary care physician in the next 3-5 days. Return to the emergency department for any worsening of symptoms or concerns. Referrals: EBONIE HANLEY MD (PCP) Time of Disposition: 22:54 JAY CHAVARRIA NP Nov 06, 2024 20:02
[2024-11-06] MEDS ORDERED: teTANUS/diphthERIA TOXOID [ADULT] 0.5 ML VIAL IM ONE (20:30)
[2024-11-06] MEDS ORDERED: traMADol HCL 50 MG TABLET PO ONE (21:00)
--- NOTE | 2024-11-06 21:16 | HMCIMG ---
INDICATION: fall, left rib pain TECHNIQUE: CHEST 1VW COMPARISON: 12/26/2022 FINDINGS AND IMPRESSION: Prominent bilateral interstitial markings which may represent bronchitis or vascular congestion in the proper clinical setting. Cardiac silhouette is within normal limits. Mild degenerative changes of the spine. The visualized upper abdomen appears unremarkable.
--- NOTE | 2024-11-06 21:18 | HMCIMG ---
FOREARM 2VWS RT INDICATION: FALL, LACERATIONS TECHNIQUE: FOREARM 2VWS RT. FINDINGS AND IMPRESSION: No displaced fracture or dislocation is seen. Correlate clinically. There is mild soft tissue swelling No radiopaque foreign body is identified.
--- NOTE | 2024-11-06 21:18 | HMCIMG ---
TIBIA/FIBULA 2VWS LT INDICATION: FALL, LACERATIONS TECHNIQUE: TIBIA/FIBULA 2VWS LT. FINDINGS AND IMPRESSION: No displaced fracture or dislocation is seen. Correlate clinically. There is mild soft tissue swelling No radiopaque foreign body is identified.
--- NOTE | 2024-11-06 21:18 | HMCIMG ---
ELBOW COMP 3+VWS RT INDICATION: FALL, LACERATIONS TECHNIQUE: ELBOW COMP 3+VWS RT. FINDINGS AND IMPRESSION: No displaced fracture or dislocation is seen. Correlate clinically. There is mild soft tissue swelling No radiopaque foreign body is identified.
--- NOTE | 2024-11-06 22:35 | NUR ---
PT CALLED FOR BEDDING. NO ANSWER. NOT IN LOBBY
--- NOTE | 2024-11-06 22:39 | NUR ---
PT CALLED FOR BEDDING, NO ANSWER. NOT IN LOBBY
[2024-11-06] MEDS ORDERED: IBUP-2070 PO (22:54)
[2024-11-06] MEDS ORDERED: CYCL5TAB3 PO (22:54)
--- NOTE | 2024-11-06 23:16 | NUR ---
T CALLED , NO ANSWER
== END 2024-11-06 23:17 | disposition left against medical advice (07) ==
LOC: EDH 19:33
DX: S51.812A Laceration without foreign body of left forearm, initial encounter (principal); S51.811A Laceration without foreign body of right forearm, initial encounter; S30.811A Abrasion of abdominal wall, initial encounter; S50.812A Abrasion of left forearm, initial encounter; S50.811A Abrasion of right forearm, initial encounter; S90.811A Abrasion, right foot, initial encounter; Z79.899 Other long term (current) drug therapy; W18.39XA Other fall on same level, initial encounter; Y93.89 Activity, other specified; Y92.89 Other specified places as the place of occurrence of the external cause; Y99.8 Other external cause status
CPT/HCPCS: 71045; 73080; 73090; 73590; 99284

== ENCOUNTER → 2024-11-15 | Outpatient (CLI) | payer OTHER ==
[~2024-11-15] MED LIST changes: +ALBUMIN HUMAN 25% 200 ML IV ONE; +CYCL5TAB3 PO; +IBUP-2070 PO
[2024-11-15] MEDS: ALBUMIN HUMAN 25% 200 ML IV ONE (11:09)
--- NOTE | 2024-11-15 11:20 | NUR ---
U/S GD PARACENTESIS TOLERATED PROCEDURE. PERFORMED BY DR Cecille LOUIE. 6.7 LITERS OF YELLOW CLOUDY ASCITES FLUID REMOVED AND SENT TO LAB. ALBUMIN 25% 50 GRAMS GIVEN IV. PUNCTURE SITE TO RLQ. END OF PROCEDURE AT 1100. DRESSING DRY AND INTACT. NO BLEEDING NOTED. DISCHARGE INSTRUCTIONS GIVEN. VERBALIZED UNDERSTANDING. DISCHARGE VIA AMBULATORY. DENIES PAIN. A&O.
[2024-11-15 13:24] LABS: APPEARANCE BODY FLUID CLEAR (CLEAR); BODY FLUID RBC 961 /cu. mm.; BODY FLUID WBC 428 /cu. mm.; COLOR,BODY FLUID YELLOW (LT YELLOW); SPECIMENTYPE,BODY FLUID ASCITES; TOTAL VOLUME,BODY FLUID 6.7 mL
[2024-11-15 13:47] LABS: BF LYMPHOCYTE 26 %; BF MACROPHAGE 40; BF MESOTHELIAL 30 %; BF MONOCYTE 4 %; BF TOTAL CELLS COUNTED 100
--- NOTE | 2024-11-15 15:22 | HMCIMG ---
US ABDOMINAL PARACENTESIS IR HISTORY: Ascites COMPARISON: None TECHNIQUE: Informed consent was obtained. Risks and benefits were explained to the patient. A timeout was performed. Patient was prepped and draped in a sterile fashion. Local anesthetics was given as required. Under ultrasound guidance, ascites fluid was localized. Paracentesis was performed. FINDINGS: 6.7 L of yellowish fluid was aspirated. Less than 2 cc blood loss is noted. Patient tolerated procedure without complication. Patient left the department in good condition. IMPRESSION: 1. Uncomplicated ultrasound guidance paracentesis.
== END | disposition home or self-care (01) ==
LOC: RAH 09:50
PROVIDERS: ATTEND Internal Medicine Gastroenterology
DX: K70.31 Alcoholic cirrhosis of liver with ascites (principal); I85.00 Esophageal varices without bleeding; K21.00 Gastro-esophageal reflux disease with esophagitis, without bleeding; K82.9 Disease of gallbladder, unspecified; K29.50 Unspecified chronic gastritis without bleeding; K64.0 First degree hemorrhoids; E87.6 Hypokalemia; E87.1 Hypo-osmolality and hyponatremia; R11.0 Nausea; R14.0 Abdominal distension (gaseous); E66.9 Obesity, unspecified; Z86.0100 Personal history of colon polyps, unspecified; Z79.899 Other long term (current) drug therapy; Z68.20 Body mass index [BMI] 20.0-20.9, adult
CPT/HCPCS: 49083; 89051; P9046; C1729; 96365

== ENCOUNTER → 2024-11-29 | Outpatient (CLI) | payer OTHER ==
[2024-11-29] MEDS: ALBUMIN HUMAN 25% 200 ML IV ONE (10:17)
--- NOTE | 2024-11-29 10:40 | NUR ---
U/S GD PARACENTESIS TOLERATED PROCEDURE. PERFORMED BY DR Cecille LOUIE. PUNCTURE SITE TO LLQ. 6.5 LITERS OF YELLOW CLOUDY ASCITES FLUID REMOVED AND SENT TO LAB. ALBUMIN 25% 50 GRAMS GIVEN. END OF PROCEDURE AT 1020. DRESSING DRY AND INTACT. NO BLEEDING NOTED. DISCHARGE INSTRUCTIONS GIVEN. VERBALIZED UNDERSTANDING. DISCHARGE VIA AMBULATORY. DENIES PAIN. A&O.
--- NOTE | 2024-11-29 12:37 | HMCIMG ---
US ABDOMINAL PARACENTESIS IR HISTORY: Ascites COMPARISON: None TECHNIQUE: Informed consent was obtained. Risks and benefits were explained to the patient. A timeout was performed. Patient was prepped and draped in a sterile fashion. Local anesthetics was given as required. Under ultrasound guidance, ascites fluid was localized. Paracentesis was performed. FINDINGS: 6.5 L of yellowish fluid was aspirated. Less than 2 cc blood loss is noted. Patient tolerated procedure without complication. Patient left the department in good condition. IMPRESSION: 1. Uncomplicated ultrasound guidance paracentesis.
[2024-11-29 18:23] LABS: BODY FLUID RBC 0 /cu. mm.; BODY FLUID WBC 222 /cu. mm.
[2024-11-29 18:25] LABS: APPEARANCE BODY FLUID CLEAR (CLEAR); COLOR,BODY FLUID YELLOW (LT YELLOW); SPECIMENTYPE,BODY FLUID ASCITES; TOTAL VOLUME,BODY FLUID 6500 mL
[2024-11-29 18:29] LABS: BF LYMPHOCYTE 11 %; BF MACROPHAGE 77; BF MESOTHELIAL 3 %; BF OTHER CELLS 9; BF TOTAL CELLS COUNTED 100
== END | disposition home or self-care (01) ==
LOC: RAH 08:53
PROVIDERS: ATTEND Internal Medicine Gastroenterology
DX: K70.31 Alcoholic cirrhosis of liver with ascites (principal); I85.10 Secondary esophageal varices without bleeding; K82.9 Disease of gallbladder, unspecified; K21.00 Gastro-esophageal reflux disease with esophagitis, without bleeding; E87.6 Hypokalemia; E87.1 Hypo-osmolality and hyponatremia; Z86.0100 Personal history of colon polyps, unspecified; Z79.899 Other long term (current) drug therapy
CPT/HCPCS: 49083; 89051; P9046; C1729; 96365

== ENCOUNTER → 2024-12-13 | Outpatient (CLI) | payer OTHER ==
[~2024-12-13] MED LIST changes: -ALBUMIN HUMAN 25% 200 ML IV ONE; +TRAM50TA4 PO
--- NOTE | 2024-12-13 10:50 | NUR ---
U/S GD PARACENTESIS TOLERATED PROCEDURE. PERFORMED BY DR Cecille LOUIE. PUNCTURE SITE TO LLQ. 9.0 LITER OF YELLOW CLOUDY FLUID REMOVED AND SENT TO LAB. ALBUMIN 25% 50 GRAMS GIVE IV. END OF PROCEDURE AT 1030. DRESSING DRY AND INTACT. NO BLEEDING NOTED. DISCHARGE INSTRUCTIONS GIVEN. VERBALIZED UNDERSTANDING. DISCHARGE VIA AMBULATORY. DENIES PAIN. A&O.
[2024-12-13 10:56] LABS: HEMATOCRIT 33.4 % (42-54); MEAN CORPUSCULAR HEMOGLOBIN 30.4 pg (27.0-33.0); MEAN CORPUSCULAR HGB CONC 32.9 g/dL (32.0-36.0); MEAN CORPUSCULAR VOLUME 92.3 fL (79-99); PLATELET COUNT (AUTO) 94 K/uL (130-400); RED BLOOD CELL COUNT(AUTO) 3.62 MIL/uL (4.50-6.20); RED CELL DISTRIBUTION WIDTH 15.2 % (11.0-15.5); WHITE BLOOD COUNT (AUTO) 2.6 K/uL (4.8-10.8)
[2024-12-13 11:06] LABS: ALBUMIN 2.7 g/dL (3.5-5.0); BILIRUBIN,TOTAL 1.4 mg/dL (0.2-1.0); CREATININE 0.6 mg/dL (0.5-1.3); POTASSIUM 3.5 mmol/L (3.5-5.1); TOTAL PROTEIN, SERUM 7.7 g/dL (6.0-8.3)
[2024-12-13 11:40] LABS: INR 1.25 (0.85-1.15)
[2024-12-13 11:52] LABS: BASOPHILS % (MANUAL) 2 % (0-2); LYMPHOCYTES % (MANUAL) 28 % (22-44); MAN.DIFF COMMENT-IMPRESSION MANUAL DIFFERENTIAL; MONOCYTES % (MANUAL) 10 % (2-9); SEGMENTED NEUTROPHILS % 60 % (40-70); TOTAL CELLS COUNTED 100
[2024-12-13 11:53] LABS: PLATELET MORPHOLOGY COMMENT DECREASED; WBC MORPHOLOGY NORMAL
[2024-12-13] MEDS: ALBUMIN HUMAN 25% 200 ML IV ONE (14:00)
[2024-12-13 14:01] LABS: BODY FLUID RBC 509 /cu. mm.; BODY FLUID WBC 361 /cu. mm.
[2024-12-13 14:36] LABS: BF LYMPHOCYTE 13 %; BF MACROPHAGE 17; BF MESOTHELIAL 69 %; BF TOTAL CELLS COUNTED 100
[2024-12-13 14:37] LABS: APPEARANCE BODY FLUID CLEAR (CLEAR); COLOR,BODY FLUID YELLOW (LT YELLOW); SPECIMENTYPE,BODY FLUID ASCITES
--- NOTE | 2024-12-13 17:13 | HMCIMG ---
US ABDOMINAL PARACENTESIS IR HISTORY: Ascites COMPARISON: None TECHNIQUE: Informed consent was obtained. Risks and benefits were explained to the patient. A timeout was performed. Patient was prepped and draped in a sterile fashion. Local anesthetics was given as required. An ultrasound guidance, ascites fluid was localized. Paracentesis was performed. FINDINGS: 9 L of yellowish fluid was aspirated. Less than 2 cc blood loss is noted. Patient tolerated procedure without complication. Patient left the department in good condition. IMPRESSION: 1. Uncomplicated ultrasound-guided paracentesis.
== END | disposition home or self-care (01) ==
LOC: RAH 09:38
PROVIDERS: ATTEND Internal Medicine Gastroenterology
DX: K70.31 Alcoholic cirrhosis of liver with ascites (principal); K29.50 Unspecified chronic gastritis without bleeding; K21.00 Gastro-esophageal reflux disease with esophagitis, without bleeding; I85.00 Esophageal varices without bleeding; R14.0 Abdominal distension (gaseous); E87.6 Hypokalemia; Z86.0100 Personal history of colon polyps, unspecified; Z86.2 Personal history of diseases of the blood and blood-forming organs and certain disorders involving the immune mechanism; Z79.899 Other long term (current) drug therapy
CPT/HCPCS: 49083; 80053; 85027; 89051; 85610; 85730; 36415; P9046; C1729; 96365

== ENCOUNTER 2024-12-15 21:37 | Emergency (ER) | payer OTHER ==
[~2024-12-15] VITALS: Ht 167.6 cm; Wt 55.8 kg
[~2024-12-15 21:37] MED LIST changes: -TRAM50TA4 PO
--- NOTE | 2024-12-15 21:39 | NUR ---
UA CUP PROVIDED
[2024-12-15 22:05] LABS: BASOPHILS # (AUTO) 0.02 K/uL (0.00-0.20); BASOPHILS % (AUTO) 0.8 % (0.0-5.0); EOSINOPHILS # (AUTO) 0.02 K/uL (0.00-0.70); EOSINOPHILS % (AUTO) 0.8 % (0.0-8.0); HEMATOCRIT 33.6 % (42-54); LYMPHOCYTES # (AUTO) 0.6 K/uL (1.0-4.8); LYMPHOCYTES % (AUTO) 24.7 % (21.0-51.0); MEAN CORPUSCULAR HEMOGLOBIN 29.6 pg (27.0-33.0); MEAN CORPUSCULAR HGB CONC 32.7 g/dL (32.0-36.0); MEAN CORPUSCULAR VOLUME 90.3 fL (79-99); MONOCYTES # (AUTO) 0.4 K/uL (0.1-1.0); MONOCYTES % (AUTO) 17.1 % (3.0-13.0); NEUTROPHILS # (AUTO) 1.4 K/uL (1.8-7.7); NEUTROPHILS % (AUTO) 56.6 % (40.0-77.0); PLATELET COUNT (AUTO) 114 K/uL (130-400); RED BLOOD CELL COUNT(AUTO) 3.72 MIL/uL (4.50-6.20); RED CELL DISTRIBUTION WIDTH 15.1 % (11.0-15.5); WHITE BLOOD COUNT (AUTO) 2.5 K/uL (4.8-10.8)
[2024-12-15 22:08] LABS: APPEARANCE,URINE CLEAR (CLEAR); BILIRUBIN,URINE NEGATIVE (NEGATIVE); COLOR,URINE COLORLESS (YELLOW); GLUCOSE, URINE (UA) NEGATIVE (NEGATIVE); KETONES,URINE NEGATIVE (NEGATIVE); LEUKOCYTE ESTERASE ,URINE NEGATIVE Leu/uL (NEGATIVE); NITRATE,URINE NEGATIVE (NEGATIVE); OCCULT BLOOD,URINE NEGATIVE (NEGATIVE); PH,URINE 6.5 (5.0-8.0); PROTEIN,URINE NEGATIVE (NEGATIVE); UROBILINOGEN,URINE 0.2 mg/dL (0.2-1.0)
[2024-12-15 22:10] LABS: ADD UA MICROSCOPIC NO
[2024-12-15 22:18] LABS: CARBON DIOXIDE 30 mmol/L (21-32); CHLORIDE 98 mmol/L (101-111); CREATININE 0.6 mg/dL (0.5-1.3); GLOMERULAR FILTR. RATE CALC 115 mL/min (>90); GLUCOSE,RANDOM 103 mg/dL (70-105); POTASSIUM 3.3 mmol/L (3.5-5.1); SODIUM SERUM 134 mmol/L (136-145); UREA NITROGEN, BLOOD 3 mg/dL (7-18)
[2024-12-15 22:19] LABS: AMMONIA < 10 umol/L (11-32)
[2024-12-15 22:32] LABS: EOSINOPHILS % (MANUAL) 1 % (1-6); LYMPHOCYTES % (MANUAL) 38 % (22-44); MONOCYTES % (MANUAL) 9 % (2-9); SEGMENTED NEUTROPHILS % 52 % (40-70); TOTAL CELLS COUNTED 100
[2024-12-15 22:33] LABS: MAN.DIFF COMMENT-IMPRESSION MANUAL DIFFERENTIAL; PLATELET MORPHOLOGY COMMENT SLIGHTLY DECREASED
[2024-12-15] MEDS: morPHINE 2 MG SYG IM ONE (23:23)
--- NOTE | 2024-12-16 00:01 | HMCIMG ---
CT ABDOMEN/PELVIS W/O CONTRAST HISTORY: Postparacentesis, severe pain and tenderness COMPARISON: None TECHNIQUE: Multiple sequential axial images of the abdomen and pelvis were obtained from the dome of the diaphragm through symphysis pubis. Patient was not given contrast through intravenous route. Oral contrast was not given. FINDINGS: No pleural effusion is seen bilaterally. There is no evidence of parenchymal disease or pulmonary nodule of the visualized lower lungs. Degenerative changes of the thoracolumbar spine are present. The heart is not enlarged. Cirrhotic changes of the liver are noted. Liver measures 16 cm. Spleen is borderline enlarged measuring 11 cm. There is left lower lateral abdominal wall subcutaneous soft tissue swelling. No definite drainable fluid collection is seen within the subcutaneous tissue. Findings may relate to soft tissue hematoma. Gallstones is seen in the gallbladder. Adrenal glands and pancreas are unremarkable. There is no evidence of hydronephrosis bilaterally. No evidence of renal stone is seen. Fecal material is seen in the colon. There are normal size retroperitoneal and mesenteric lymph nodes. There is moderate ascites. Atherosclerotic changes are present. Pelvic sidewalls are symmetric bilaterally. Bladder is well distended without wall thickening. IMPRESSION: 1. Cirrhotic changes of the liver are noted. Liver measures 16 cm. Spleen is borderline enlarged measuring 11 cm. There is left lower lateral abdominal wall subcutaneous soft tissue swelling. No definite drainable fluid collection is seen within the subcutaneous tissue. Findings may relate to soft tissue hematoma. Gallstones is seen in the gallbladder. CT was performed with one or more following dose reduction techniques: automated exposure control, adjustment of the mA and kv according to patient's size, or use of a iterative reconstruction technique.
[2024-12-16] MEDS ORDERED: TRAM50TA4 PO (00:22)
--- NOTE | 2024-12-16 00:23 | ERN ---
ED Note History of Present Illness Stated Complaint: ABD SWELLING PAIN Chief Complaint: Abdominal Pain Time Seen by MD: 21:48 Dictation: This is a 54-year-old male who presented to the emergency room stating that he had left-sided lower abdominal wall pain. He has a known history of cirrhosis and liver disease and underwent a paracentesis on 13 December 2024 and 9 L of ascitic fluid was removed. He stated that he started experiencing pain at the site of insertion for the paracentesis and he has tried taking Tylenol without improvement and hence came in for evaluation he also reported some nausea but no fever chills or rigors. No hematemesis or melena Temperature 97.8 pulse 75 respirations 18 blood pressure 111/74 with a pulse oximetry of 98% on room air. His chronic medical problem includes alcoholic cirrhosis with end-stage liver disease and he continues to drink alcohol. Allergies: Coded Allergies: No Known Drug Allergies (Unverified Allergy, Unknown, 01/25/19) Home Meds Active Scripts Tramadol Hcl (Tramadol HCl) 50 Mg Tablet, 50 MG PO TID for pain for 5 Days, #16 TAB 0 Refills Prov:KATHY MONTALVO MD 12/16/24 Ibuprofen (Ibuprofen) 600 Mg Tablet, 1 TAB PO TID for pain, #12 TAB 0 Refills with food Prov:JAY CHAVARRIA NP 11/06/24 Cyclobenzaprine HCl (Cyclobenzaprine HCl) 5 Mg Tablet, 1 TAB PO q12 hours PRN PRN for muscle spasms, #10 TAB 0 Refills Prov:JAY CHAVARRIA NP 11/06/24 Propranolol HCl (Inderal) 10 Mg Tab, 10 MG PO BID for 30 Days, #60 TAB 2 Refills Prov:HAL COUCH NP 09/12/19 Reported Medications Spironolactone (Spironolactone) 100 Mg Tablet, 1 TAB PO DAILY 12/26/23 Furosemide (Furosemide) 40 Mg Tablet, 1 TAB PO DAILY 12/26/23 Folic Acid (Folvite) 1 Mg Tab, 1 TAB PO DAILY 12/26/23 Omeprazole (Omeprazole) 40 Mg Capsule.dr, 1 CAP PO DAILY 12/26/23 Lactulose (Enulose) 10 Gram/15 Ml Solution, 15 ML PO BID 12/26/23 Past Medical History Past Medical History: Liver Disease, Other Additional Past Medical Hx: HX OF CIRRHOSIS OF LIVER Surgical History: Other Surgical History Other: PARACENTESIS Social History: ETOH RN Note Reviewed/Agreed w/PFSH: Yes Review of System Dictation Constitutional: Negative for fever,chills, and weight loss Eyes: Negative for injury, pain,redness, and discharge ENT: Negative for injury,pain or swelling Cardiovascular: Negative for chest pain, palpitations, and edema Respiratory: Negative for shortness of breath, cough, and wheezing, Abdomen/GI: Positive for left lower abdominal wall pain, nausea, denied vomiting, diarrhea, and constipation Back: Negative for injury and pain : Negative for injury, bleeding and discharge MS/Extremity: Negative for injury and deformity Skin: Negative for rash, and discoloration Neuro: Negative for headache, weakness, numbness, tingling, and seizure Psych: Negative for suicide ideation, homicidal ideation, and hallucinations Initial Vital Sign VS Vital Signs Date Time Temp Pulse Resp B/P (MAP) Pulse Ox O2 Delivery O2 Flow Rate FiO2 12/15/24 21:38 97.9 75 18 111/74 99 Room Air 12/16/24 00:28 0 21 Physical Exam Dictation General: awake, alert, NAD chronically ill-appearing Head/Face: Normocephalic, atraumatic Eyes: PERRL, EOMI, vision at baseline ENT: oral cavity clear, TMs clear, no signs of infection Neck: Trachea midline, supple, no nuchal rigidity Cardiovascular: RRR, normal S1/S2, No MRGs, no JVD Respiratory: CTAB, no respiratory distress, No rales or wheezes Abdomen: Soft, mildly distended-distended, normal bowel sounds, no guarding or rebound. Severe hepatomegaly and splenomegaly left lower abdominal wall insertion site has a small ecchymotic area and tender to touch Skin: Warm, dry, normal turgor, no rash MS/Extremity: Pulses equal, no cyanosis, neurovascular intact, FROM Neuro: COAx4, GCS 15, strength 5/5, CN 2-12 intact, normal cerebellar exam, normal gait, Psych: Normal behavior, mood, and affect normal Extremities-trace edema without any palpable cords, Homans sign is negative Results (Laboratory/Radiology) Laboratory/Radiology Laboratory Tests Test 12/15/24 21:53 White Blood Count 2.5 K/uL (4.8-10.8) L Red Blood Count 3.72 MIL/uL (4.50-6.20) L Hemoglobin 11.0 g/dL (14.0-18.0) L Hematocrit 33.6 % (42-54) L Mean Corpuscular Volume 90.3 fL (79-99) Mean Corpuscular Hemoglobin 29.6 pg (27.0-33.0) Mean Corpuscular Hemoglobin Concent 32.7 g/dL (32.0-36.0) Red Cell Distribution Width 15.1 % (11.0-15.5) Platelet Count 114 K/uL (130-400) L Mean Platelet Volume 9.7 fL (7.5-10.5) Immature Granulocyte % (Auto) 0.0 % (0-1) Neutrophils (%) (Auto) 56.6 % (40.0-77.0) Lymphocytes (%) (Auto) 24.7 % (21.0-51.0) Monocytes (%) (Auto) 17.1 % (3.0-13.0) H Eosinophils (%) (Auto) 0.8 % (0.0-8.0) Basophils (%) (Auto) 0.8 % (0.0-5.0) Neutrophils # (Auto) 1.4 K/uL (1.8-7.7) L Lymphocytes # (Auto) 0.6 K/uL (1.0-4.8) L Monocytes # (Auto) 0.4 K/uL (0.1-1.0) Eosinophils # (Auto) 0.02 K/uL (0.00-0.70) Basophils # (Auto) 0.02 K/uL (0.00-0.20) Absolute Immature Granulocyte (auto 0.00 K/uL (0-1) Segmented Neutrophils % 52 % (40-70) Lymphocytes % (Manual) 38 % (22-44) Monocytes % (Manual) 9 % (2-9) Eosinophils % (Manual) 1 % (1-6) Nucleated Red Blood Cells 0.0 % (0.0-0.19) Differential Comment MANUAL DIFFERENTIAL White Cell Morphology Comment Platelet Morphology Comment SLIGHTLY DECREASED Red Blood Cell Morphology HYPOCHROM CELLS 1+ Urine Color COLORLESS (YELLOW) Urine Appearance CLEAR (CLEAR) Urine pH 6.5 (5.0-8.0) Urine Specific [place] 1.003 (1.001-1.031) Urine Protein NEGATIVE mg/dL (NEGATIVE) Urine Glucose (UA) NEGATIVE mg/dL (NEGATIVE) Urine Ketones NEGATIVE mg/dL (NEGATIVE) Urine Occult Blood NEGATIVE (NEGATIVE) Urine Nitrate NEGATIVE (NEGATIVE) Urine Bilirubin NEGATIVE mg/dL (NEGATIVE) Urine Urobilinogen 0.2 mg/dL (0.2-1.0) Urine Leukocyte Esterase NEGATIVE [place]/uL Sodium Level 134 mmol/L (136-145) L Potassium Level 3.3 mmol/L (3.5-5.1) L Chloride Level 98 mmol/L (101-111) L Carbon Dioxide Level 30 mmol/L (21-32) Blood Urea Nitrogen 3 mg/dL (7-18) L Creatinine 0.6 mg/dL (0.5-1.3) Glomerular Filtration Rate Calc 115 mL/min (>90) Random Glucose 103 mg/dL (70-105) Total Calcium 7.8 mg/dL (8.5-10.1) L Ammonia < 10 umol/L (11-32) L Lipase 57 U/L (16-77) Labs Reviewed?: Yes CT Scan Comment: REASON: post paracentesis - severe pain and tenderness- ? hematoma or abscess ORDERING PHYSICIAN: KATHY MONTALVO MD PROCEDURE: ABD PEL WO - CT ABDOMEN/PELVIS W/O CONTRAST CT ABDOMEN/PELVIS W/O CONTRAST HISTORY: Postparacentesis, severe pain and tenderness COMPARISON: None TECHNIQUE: Multiple sequential axial images of the abdomen and pelvis were obtained from the dome of the diaphragm through symphysis pubis. Patient was not given contrast through intravenous route. Oral contrast was not given. FINDINGS: No pleural effusion is seen bilaterally. There is no evidence of parenchymal disease or pulmonary nodule of the visualized lower lungs. Degenerative changes of the thoracolumbar spine are present. The heart is not enlarged. Cirrhotic changes of the liver are noted. Liver measures 16 cm. Spleen is borderline enlarged measuring 11 cm. There is left lower lateral abdominal wall subcutaneous soft tissue swelling. No definite drainable fluid collection is seen within the subcutaneous tissue. Findings may relate to soft tissue hematoma. Gallstones is seen in the gallbladder. Adrenal glands and pancreas are unremarkable. There is no evidence of hydronephrosis bilaterally. No evidence of renal stone is seen. Fecal material is seen in the colon. There are normal size retroperitoneal and mesenteric lymph nodes. There is moderate ascites. Atherosclerotic changes are present. Pelvic sidewalls are symmetric bilaterally. Bladder is well distended without wall thickening. IMPRESSION: 1. Cirrhotic changes of the liver are noted. Liver measures 16 cm. Spleen is borderline enlarged measuring 11 cm. There is left lower lateral abdominal wall subcutaneous soft tissue swelling. No definite drainable fluid collection is seen within the subcutaneous tissue. Findings may relate to soft tissue hematoma. Gallstones is seen in the gallbladder. CT was performed with one or more following dose reduction techniques: automated exposure control, adjustment of the mA and kv according to patient's size, or use of a iterative reconstruction technique. DICTATED BY: HUMBERTO LOUIE MD DATE: 12/15/24 2353 ELECTRONICALLY SIGNED BY: HUMBERTO LOUIE MD DATE: 12/16/24 0001 ED Course ED Course Orders Procedure Category Date Status Time Vital Signs Per CPOE 12/15/24 Transmitted Routine 21:43 Saline Lock Iv CPOE 12/15/24 Transmitted 21:43 Cbc With Differential LAB 12/15/24 Complete 21:43 Lipase LAB 12/15/24 Complete 21:43 Urinalysis Profile LAB 12/15/24 Complete 21:43 Basic Metabolic Panel LAB 12/15/24 Complete 21:43 Ammonia LAB 12/15/24 Complete 21:43 Manual Differential LAB 12/15/24 Complete 21:53 Morphine 2mg Syg PHA 12/15/24 Complete (Morphine 2mg Syg) 23:30 Ct Abdomen/Pelvis W/O CT 12/15/24 Resulted Contrast 23:12 Current Medications Medications (Trade) Dose Ordered Sig/Chin Route PRN Reason Start Time Stop Time Status Last Admin Dose Admin Morphine Sulfate (morPHINE 2MG SYG) 2 mg ONCE ONCE IM 12/15/24 23:30 12/15/24 23:31 DC 12/15/24 23:23 Vital Signs Date Time Temp Pulse Resp B/P (MAP) Pulse Ox O2 Delivery O2 Flow Rate FiO2 12/16/24 00:28 98.2 73 18 115/71 97 Room Air* 0 21 12/15/24 21:38 97.9 75 18 111/74 99 Room Air We will perform diagnostic labs, advanced imaging and administer medications according to the patient's complaint. Once the results are available, will review and personally interpreted the labs to rule out any acute life- threatening emergency the trach require immediate intervention and treatment. I will then re-evaluate the patient after treatment and diagnostic exams have return to determine whether the patient requires any further testing, can safely be discharged home or need further admission to hospital for additional treatment and evaluation. Reviewed labs CBC showed a white count of 2.5 platelet count 114, hemoglobin 11. Urinalysis is unremarkable. BNP 7 showed a potassium of 3.3 BUN and creatinine are 3 and 0.6 lipase of 57 ammonia less than 10. CT scan of the abdomen and pelvis was done which only showed hematoma in the abdominal wall but there was no drainable fluid. I had a long discussion with the patient and his mother about the labs and the findings on the CT scan and is pain and tenderness limited to the abdominal wall hematoma and at this time hemoglobin is very stable in fact better than previous ER visits and I suggested symptomatic pain management for now. They both verbalized full understanding. I counseled him extensively on alcohol abstinence and complications including alcohol withdrawal as well as intoxication related worsening liver failure right heart failure and . He verbalized full understanding. Medical Decision Making MDM MDM: Differential diagnosis: Rationale: Tests considered and ordered secondary to shared decision making include: Previous outside records reviewed: Old ER visits. Risk of complication and/or morbidity or mortality of patient management: None Medications-Per medication reconciliation Need for hospitalization: Patient does not meet criteria for hospitalization. Need for emergency major/minor surgery: No There are no social concerns with this patient. Prescription drug management Prescriptions will include symptomatic care Patient's prior external medical records from other ER visits were reviewed by me as indicated. Prior testing and results from previous visits were reviewed. Prior tests were taken into account with medical decision making and resource utilization, independent historian/historians were used to obtain complete medical history. I independently interpreted the test that were performed, results were reviewed by me and considered findings on radiology if ordered. Medical management and examination interpretation discussions were had by me with other qualified healthcare professionals as indicated for the patient's care. Problem List Problem List: (1) Postprocedural hematoma of abdominal wall (2) Status post abdominal paracentesis DX & DISP Disposition: Discharge Departure Impression: Primary Impression: Postprocedural hematoma of abdominal wall Additional Impression: Status post abdominal paracentesis Condition: Stable Scripts Tramadol Hcl (Tramadol HCl) 50 Mg Tablet 50 MG PO TID for pain for 5 Days, #16 TAB 0 Refills Prov: THOPU,KATHY R MD 12/16/24 Additional Instructions: Patient and the caregiver have been informed of all the diagnostic tests and the imaging conducted during the today's visit to the emergency room and has verbalized understanding of the results I have personally reviewed and interpreted all diagnostic exams performed here in the ER today as well as the vital signs documented by the nursing staff. The patient is now being discharged to home and should follow up with the primary care physician or the specialist as directed by the ER staff. Follow-up with primary care provider in 1 to 2 days. Take medications as directed here in the emergency room. Okay to continue home medications unless otherwise discussed during your visit in the emergency room today. Return to your nearest emergency room if symptoms worsen or if there is no improvement. Call 911 if you need immediate assistance. Take Tylenol or Motrin over-the- counter as needed and if no contraindications are present. Increase oral hydration. A wound culture or urine culture was ordered here in the emergency room department please follow-up with primary care provider and advise them to get repeat ports from our facility. If you had any Piter wrap/splints that were applied here, please do not remove them until you see your primary care or specialty. Referrals: KOJO LR MD (PCP) KATHY MONTALVO MD Dec 16, 2024 00:23
[2024-12-16 00:28] VITALS: BP 115/71; PULSE 73; RESP 18; TEMP 98.2; O2SAT 97
== END 2024-12-16 00:29 | disposition home or self-care (01) ==
LOC: EDH 21:37
DX: L76.32 Postprocedural hematoma of skin and subcutaneous tissue following other procedure (principal); Z79.1 Long term (current) use of non-steroidal anti-inflammatories (NSAID); Z79.899 Other long term (current) drug therapy
CPT/HCPCS: 99285; 74176; 80048; 82140; 83690; 85025; 81003; 36415; 96372; J2270

== ENCOUNTER → 2024-12-26 | Outpatient (CLI) | payer OTHER ==
[~2024-12-26] MED LIST changes: +ALBUMIN HUMAN 25% 200 ML IV ONE; +TRAM50TA4 PO
--- NOTE | 2024-12-26 10:50 | NUR ---
U/S GD PARACENTESIS TOLERATED PROCEDURE. PERFORMED BY DR Tyson BRANDON. PUNCTURE SITE TO RLQ. 10.0 LITERS OF CLOUDY ASCITES FLUID REMOVED AND SENT TO LAB. ALBUMIN 25% 50 GRAMS GIVEN. END OF PROCEDURE AT 1030. DRESSING DRY AND INTACT. NO BLEEDING NOTED. DISCHARGE INSTRUCTIONS GIVEN. VERBALIZED UNDERSTANDING. DENIES PAIN. A&O. DISCHARGE VIA AMBULATORY WITH MOTHER.
[2024-12-26 13:40] LABS: APPEARANCE BODY FLUID CLEAR (CLEAR); COLOR,BODY FLUID YELLOW (LT YELLOW); SPECIMENTYPE,BODY FLUID ASCITES; TOTAL VOLUME,BODY FLUID 10000 mL
[2024-12-26 14:17] LABS: BODY FLUID RBC 68 /cu. mm.; BODY FLUID WBC 125 /cu. mm.
[2024-12-26] MEDS: ALBUMIN HUMAN 25% 200 ML IV ONE (14:22)
--- NOTE | 2024-12-26 14:29 | HMCIMG ---
ULTRASOUND GUIDED PARACENTESIS: INDICATION: Ascites TECHNIQUE: Informed consent was obtained. Timeout performed. All elements of maximal sterile barrier technique, including hand hygiene and cutaneous antisepsis were used. Patient was placed supine. Right lower quadrant was prepped and draped in sterile fashion. Local anesthesia was applied. Then, under ultrasound guidance, a 5F centesis needle was advanced through the abdominal wall and into a pocket of fluid in the peritoneum. It yielded 10 L of fluid. The catheter was removed and sterile dressing applied. Blood pressure monitoring was performed during the procedure. Complications: None Blood loss: <5 mL. IMPRESSION: Successful ultrasound guided paracentesis.
[2024-12-26 15:11] LABS: BF LYMPHOCYTE 76 %; BF MESOTHELIAL 14 %; BF MONOCYTE 9 %; BF TOTAL CELLS COUNTED 100
== END | disposition home or self-care (01) ==
LOC: RAH 09:21
PROVIDERS: ATTEND Internal Medicine Gastroenterology
DX: K70.31 Alcoholic cirrhosis of liver with ascites (principal); I85.10 Secondary esophageal varices without bleeding; K82.9 Disease of gallbladder, unspecified; K21.00 Gastro-esophageal reflux disease with esophagitis, without bleeding; E87.6 Hypokalemia; E87.1 Hypo-osmolality and hyponatremia; R11.0 Nausea; R14.0 Abdominal distension (gaseous); Z86.0100 Personal history of colon polyps, unspecified; Z79.899 Other long term (current) drug therapy
CPT/HCPCS: 49083; 89051; P9046; C1729; 96365

== ENCOUNTER → 2025-01-10 | Outpatient (CLI) | payer OTHER ==
[2025-01-10] MEDS: ALBUMIN HUMAN 25% 100 ML IV ONE (10:53)
--- NOTE | 2025-01-10 11:05 | NUR ---
U/S GD PARACENTESIS TOLERATED PROCEDURE. PERFORMED BY DR Cecille LOUIE. PUNCTURE SITE TO LLQ. 9.0 LITER OF YELLOW CLOUDY ASCITES FLUID REMOVED AND SENT TO LAB. ALBUMIN 25% 50 GRAMS GIVEN IV. END OF PROCEDURE AT 1045. DRESSING APPLIED. NO BLEEDING NOTED. DISCHARGE INSTRUCTIONS GIVEN. VERBALIZED UNDERSTANDING. DISCHARGE VIA AMBULATORY. DENIES PAIN. A&O.
--- NOTE | 2025-01-10 12:38 | HMCIMG ---
US ABDOMINAL PARACENTESIS IR HISTORY: Ascites COMPARISON: None TECHNIQUE: Informed consent was obtained. Risks and benefits were explained to the patient. A timeout was performed. Patient was prepped and draped in a sterile fashion. Local anesthetics was given as required. Under ultrasound guidance, ascites fluid was localized. Paracentesis was performed. FINDINGS: 9 L of yellowish fluid was aspirated. Less than 2 cc blood loss is noted. Patient tolerated procedure without complication. Patient left the department in good condition. IMPRESSION: 1. Uncomplicated ultrasound guidance paracentesis.
[2025-01-10 14:11] LABS: APPEARANCE BODY FLUID CLEAR (CLEAR); COLOR,BODY FLUID YELLOW (LT YELLOW); SPECIMENTYPE,BODY FLUID ASCITES
[2025-01-10 14:12] LABS: TOTAL VOLUME,BODY FLUID 9000 mL
[2025-01-10 14:30] LABS: BODY FLUID RBC 48 /cu. mm.; BODY FLUID WBC 193 /cu. mm.
[2025-01-10 15:31] LABS: BF LYMPHOCYTE 33 %; BF MACROPHAGE 57; BF MESOTHELIAL 9 %; BF TOTAL CELLS COUNTED 100
== END ==
LOC: RAH 09:47
PROVIDERS: ATTEND Internal Medicine Gastroenterology
DX: K70.31 Alcoholic cirrhosis of liver with ascites (principal); K64.0 First degree hemorrhoids; K21.00 Gastro-esophageal reflux disease with esophagitis, without bleeding; K82.9 Disease of gallbladder, unspecified; I85.00 Esophageal varices without bleeding; E87.6 Hypokalemia; E87.1 Hypo-osmolality and hyponatremia; R11.0 Nausea; R14.0 Abdominal distension (gaseous); Z86.2 Personal history of diseases of the blood and blood-forming organs and certain disorders involving the immune mechanism; Z79.899 Other long term (current) drug therapy; Z86.0100 Personal history of colon polyps, unspecified
CPT/HCPCS: 49083; 89051; P9046; C1729; 96365

== ENCOUNTER → 2025-01-25 | Outpatient (CLI) | payer OTHER ==
[2025-01-25 09:15] LABS: BASOPHILS # (AUTO) 0.03 K/uL (0.00-0.20); BASOPHILS % (AUTO) 1.3 % (0.0-5.0); EOSINOPHILS # (AUTO) 0.05 K/uL (0.00-0.70); EOSINOPHILS % (AUTO) 2.1 % (0.0-8.0); HEMATOCRIT 33.6 % (42-54); IMMATURE GRANULOCYTE ABSOLUTE 0.01 K/uL (0-1); LYMPHOCYTES # (AUTO) 0.6 K/uL (1.0-4.8); LYMPHOCYTES % (AUTO) 23.9 % (21.0-51.0); MEAN CORPUSCULAR HEMOGLOBIN 29.3 pg (27.0-33.0); MEAN CORPUSCULAR HGB CONC 32.7 g/dL (32.0-36.0); MEAN CORPUSCULAR VOLUME 89.4 fL (79-99); MONOCYTES # (AUTO) 0.7 K/uL (0.1-1.0); MONOCYTES % (AUTO) 27.7 % (3.0-13.0); NEUTROPHILS # (AUTO) 1.1 K/uL (1.8-7.7); NEUTROPHILS % (AUTO) 44.6 % (40.0-77.0); PLATELET COUNT (AUTO) 107 K/uL (130-400); RED BLOOD CELL COUNT(AUTO) 3.76 MIL/uL (4.50-6.20); RED CELL DISTRIBUTION WIDTH 16.5 % (11.0-15.5); WHITE BLOOD COUNT (AUTO) 2.4 K/uL (4.8-10.8)
[2025-01-25 09:22] LABS: INR 1.26 (0.85-1.15); PROTHROMBIN TIME 13.1 SEC (9.6-11.6)
[2025-01-25 09:24] LABS: PARTIAL THROMBOPLASTIN TIME 30.8 SEC (26.3-35.5)
[2025-01-25 09:26] LABS: ALBUMIN 2.5 g/dL (3.5-5.0); BILIRUBIN,TOTAL 1.5 mg/dL (0.2-1.0); CREATININE 0.7 mg/dL (0.5-1.3); TOTAL PROTEIN, SERUM 7.2 g/dL (6.0-8.3)
[2025-01-25 09:29] LABS: POTASSIUM 2.6 mmol/L (3.5-5.1)
--- NOTE | 2025-01-25 09:30 | NUR ---
CRITICAL LAB NOTIFIED OF HYPOKALEMIA. POTASSIUM LEVEL OF 2.6. PER PT DID NOT WANT TO GO TO ED. WILL GO TO PCP POST PARACENTESIS. PT STATED " I FEEL FINE". ASYMPTOMATIC. DR SCHROEDER OFFICE NOTIFIED OF CRITICAL LAB VALUE. PENDING CALL BACK FROM Manuelito GERMAN
--- NOTE | 2025-01-25 09:40 | NUR ---
U/S GD PARACENTESIS PROCEDURE PERFORMED BY DR BRANDON. PUNCTURE SITE RLQ AND PATIENT TOLERATED PROCEDURE WELL. TOTAL REMOVED 10.1 LITERS OF YELLOW CLOUDY ASCITES FLUID. ALBUMIN 25% 50 GRAMS IV GIVEN DURING PROCEDURE. SPECIMEN SENT TO LAB. END OF PROCEDURE AT 0920. CATHETER REMOVED AND DRESSING APPLIED. NO BLEEDING NOTED. DISCHARGE INSTRUCTIONS GIVEN TO PATIENT AND VERBALIZED UNDERSTANDING. DISCHARGED VIA AMBULATORY WITH MOTHER. AAO X3 WITH NO C/O PAIN. EDUCATED PT ON IMPORTANCE OF GOING TO PCP OR ED FOR LOW POTASSIUM. VERBALIZED UNDERSTANDING. PT STATED WILL GO TO PCP AFTER PARACENTESIS. COPY OF LABS PROVIDED.
--- NOTE | 2025-01-25 10:20 | HMCIMG ---
ULTRASOUND GUIDED PARACENTESIS: INDICATION: Ascites TECHNIQUE: Informed consent was obtained. Timeout performed. All elements of maximal sterile barrier technique, including hand hygiene and cutaneous antisepsis were used. Patient was placed supine. Right lower quadrant was prepped and draped in sterile fashion. Local anesthesia was applied. Then, under ultrasound guidance, a 5F centesis needle was advanced through the abdominal wall and into a pocket of fluid in the peritoneum. It yielded 10.1 L of fluid. The catheter was removed and sterile dressing applied. Blood pressure monitoring was performed during the procedure. Complications: None Blood loss: <5 mL. IMPRESSION: Successful ultrasound guided paracentesis.
[2025-01-25 12:34] LABS: EOSINOPHILS % (MANUAL) 6 % (1-6); LYMPHOCYTES % (MANUAL) 35 % (22-44); MAN.DIFF COMMENT-IMPRESSION MANUAL DIFFERENTIAL; METAMYELOCYTES % 2 % (0-0); MONOCYTES % (MANUAL) 4 % (2-9); MYELOCYTES % 2 % (0-0); REACTIVE LYMPHOCYTES 2 % (0-0); SEGMENTED NEUTROPHILS % 49 % (40-70); TOTAL CELLS COUNTED 100
[2025-01-25 12:35] LABS: PLATELET MORPHOLOGY COMMENT SLIGHTLY DECREASED
[2025-01-25 12:41] LABS: ALBUMIN,BODY FLUID 0.9 g/dL; TOTAL PROTEIN,BODY FLUID 2.1 g/dL
[2025-01-25 13:59] LABS: BODY FLUID RBC 96 /cu. mm.; BODY FLUID WBC 135 /cu. mm.
[2025-01-25 14:24] LABS: SPECIMENTYPE,BODY FLUID ASCITES; TOTAL VOLUME,BODY FLUID 10100 mL
[2025-01-25 14:25] LABS: APPEARANCE BODY FLUID CLEAR (CLEAR); COLOR,BODY FLUID YELLOW (LT YELLOW)
[2025-01-25 15:10] LABS: BF LYMPHOCYTE 8 %; BF MACROPHAGE 77; BF MESOTHELIAL 6 %; BF OTHER CELLS 5; BF TOTAL CELLS COUNTED 100
== END | disposition home or self-care (01) ==
LOC: RAH 08:02
PROVIDERS: ATTEND Internal Medicine Gastroenterology
DX: R18.8 Other ascites (principal); Z79.01 Long term (current) use of anticoagulants
CPT/HCPCS: 49083; 84157; 80053; 85025; 89051; 85610; 85730; 87071; 87205; 82042; 36415; 88108; 88305; P9046; C1729; 96365

== ENCOUNTER → 2025-02-07 | Outpatient (CLI) | payer OTHER ==
[~2025-02-07] MED LIST changes: +IBUP-1492 PO; -IBUP-2070 PO
--- NOTE | 2025-02-07 11:00 | NUR ---
U/S GD PARACENTESIS PROCEDURE PERFORMED BY DR Cecille LOUIE. PUNCTURE SITE LLQ AND PATIENT TOLERATED PROCEDURE WELL. TOTAL REMOVED 9.2 LITERS OF YELLOW CLOUDY FLUID. ALBUMIN 25% 50 GRAMS IV GIVEN DURING PROCEDURE. SPECIMEN SENT TO LAB. END OF PROCEDURE AT 1040. CATHETER REMOVED AND DRESSING APPLIED. NO BLEEDING NOTED. DISCHARGE INSTRUCTIONS GIVEN TO PATIENT AND VERBALIZED UNDERSTANDING. DISCHARGED VIA AMBULATORY. AAO X3 WITH NO C/O PAIN.
--- NOTE | 2025-02-07 12:21 | HMCIMG ---
US ABDOMINAL PARACENTESIS IR HISTORY: Ascites COMPARISON: None TECHNIQUE: Informed consent was obtained. Risks and benefits were explained to the patient. A timeout was performed. Patient was prepped and draped in a sterile fashion. Local anesthetics was given as required. Under ultrasound guidance, ascites fluid was localized. Paracentesis was performed. FINDINGS: 9.2 L of yellowish fluid was aspirated. Less than 2 cc blood loss is noted. Patient tolerated procedure without complication. Patient left the department in good condition. IMPRESSION: 1. Uncomplicated ultrasound guidance paracentesis.
[2025-02-07 14:22] LABS: ALBUMIN,BODY FLUID 0.8 g/dL; TOTAL PROTEIN,BODY FLUID 2.1 g/dL
[2025-02-07 14:43] LABS: BODY FLUID RBC 300 /cu. mm.; BODY FLUID WBC 170 /cu. mm.
[2025-02-07] MEDS: ALBUMIN HUMAN 25% 200 ML IV ONE (14:45)
[2025-02-07 15:05] LABS: APPEARANCE BODY FLUID CLEAR (CLEAR); COLOR,BODY FLUID YELLOW (LT YELLOW); SPECIMENTYPE,BODY FLUID ASCITES; TOTAL VOLUME,BODY FLUID 9200 mL
[2025-02-07 15:25] LABS: BF LYMPHOCYTE 36 %; BF MACROPHAGE 49; BF MESOTHELIAL 13 %; BF TOTAL CELLS COUNTED 100
== END ==
LOC: RAH 09:27
PROVIDERS: ATTEND Internal Medicine Gastroenterology
DX: K70.31 Alcoholic cirrhosis of liver with ascites (principal); K29.50 Unspecified chronic gastritis without bleeding; K64.0 First degree hemorrhoids; K82.9 Disease of gallbladder, unspecified; K21.00 Gastro-esophageal reflux disease with esophagitis, without bleeding; I85.00 Esophageal varices without bleeding; E87.6 Hypokalemia; E87.1 Hypo-osmolality and hyponatremia; R11.0 Nausea; Z79.899 Other long term (current) drug therapy; Z86.2 Personal history of diseases of the blood and blood-forming organs and certain disorders involving the immune mechanism; Z86.0100 Personal history of colon polyps, unspecified
CPT/HCPCS: 49083; 84157; 89051; 87071; 87205; 82042; 88108; 88305; P9046; C1729; 96365

== ENCOUNTER → 2025-02-19 | Outpatient (CLI) | payer OTHER ==
[~2025-02-19] MED LIST changes: +ALBUMIN HUMAN 25% 100 ML IV ONE; -ALBUMIN HUMAN 25% 200 ML IV ONE
--- NOTE | 2025-02-19 11:00 | NUR ---
U/S GD PARACENTESIS PROCEDURE PERFORMED BY DR HOOKER. PUNCTURE SITE LLQ AND PATIENT TOLERATED PROCEDURE WELL. TOTAL REMOVED 9.0 LITERS OF YELLOW CLOUDY ASCITES FLUID. ALBUMIN 25% 50 GRAMS IV GIVEN DURING PROCEDURE. SPECIMEN SENT TO LAB. END OF PROCEDURE AT 1040. CATHETER REMOVED AND DRESSING APPLIED. NO BLEEDING NOTED. DISCHARGE INSTRUCTIONS GIVEN TO PATIENT AND VERBALIZED UNDERSTANDING. DISCHARGED VIA AMBULATORY. AAO X3 WITH NO C/O PAIN.
[2025-02-19 12:32] LABS: ALBUMIN,BODY FLUID 0.9 g/dL; TOTAL PROTEIN,BODY FLUID 2.1 g/dL
[2025-02-19 13:09] LABS: APPEARANCE BODY FLUID SLIGHTLY CLOUDY (CLEAR); COLOR,BODY FLUID YELLOW (LT YELLOW); SPECIMENTYPE,BODY FLUID ASCITES; TOTAL VOLUME,BODY FLUID 9000 mL
[2025-02-19 13:14] LABS: BODY FLUID RBC 80 /cu. mm.; BODY FLUID WBC 160 /cu. mm.
[2025-02-19 13:45] LABS: BF TOTAL CELLS COUNTED 100
[2025-02-19 13:58] LABS: BF LYMPHOCYTE 48 %; BF MACROPHAGE 5; BF MESOTHELIAL 1 %; BF MONOCYTE 45 %; BF NEUTROPHIL 1.0 %
[2025-02-19] MEDS: ALBUMIN HUMAN 25% 100 ML IV ONE (14:28)
--- NOTE | 2025-02-19 17:02 | HMCIMG ---
US ABDOMINAL PARACENTESIS IR REASON: ASCITES TECHNIQUE: Paracentesis was performed with ultrasound guidance. The puncture site was selected in the Right lower quadrant and overlying skin prepped and draped in a sterile fashion. 1% Xylocaine infiltration was performed. Catheter was placed in the fluid using trocar technique. 9.0 were removed. Fluid sample was submitted for laboratory evaluation. The patient showed no evidence of complication during the procedure. Patient tolerated procedure well. IMPRESSION: 1. Ultrasound-guided paracentesis. 2. Due to intractable ascites. This is amenable for TIPS procedure scan be performed at [facility]
== END | disposition home or self-care (01) ==
LOC: RAH 09:21
PROVIDERS: ATTEND Internal Medicine Gastroenterology
DX: K70.31 Alcoholic cirrhosis of liver with ascites (principal); K21.9 Gastro-esophageal reflux disease without esophagitis; R14.0 Abdominal distension (gaseous); I85.10 Secondary esophageal varices without bleeding; K82.9 Disease of gallbladder, unspecified; E87.1 Hypo-osmolality and hyponatremia; E87.6 Hypokalemia; Z86.0100 Personal history of colon polyps, unspecified; Z79.899 Other long term (current) drug therapy
CPT/HCPCS: 49083; 84157; 89051; 87071; 87205; 82042; 88108; 88305; P9046; C1729; 96365

== ENCOUNTER → 2025-03-04 | Outpatient (CLI) | payer OTHER ==
[~2025-03-04] MED LIST changes: -ALBUMIN HUMAN 25% 100 ML IV ONE; +ALBUMIN HUMAN 25% 200 ML IV ONE
[2025-03-04 10:11] LABS: IMMATURE GRANULOCYTE ABSOLUTE 0.01 K/uL (0-1); NUCLEATED RED BLOOD CELLS 0.0 % (0.0-0.19); PLATELET COUNT (AUTO) 71 K/uL (130-400); RED BLOOD CELL COUNT(AUTO) 3.67 MIL/uL (4.50-6.20); RED CELL DISTRIBUTION WIDTH 18.2 % (11.0-15.5); WHITE BLOOD COUNT (AUTO) 2.2 K/uL (4.8-10.8)
[2025-03-04 10:24] LABS: INR 1.19 (0.85-1.15)
[2025-03-04 10:29] LABS: ASPARTATE AMINOTRANSFERASE 86.0 U/L (10-37); CREATININE 0.6 mg/dL (0.5-1.3); GLOMERULAR FILTR. RATE CALC 115.0 mL/min (>90); GLUCOSE,RANDOM 96.0 mg/dL (70-105); SODIUM SERUM 133.0 mmol/L (136-145); TOTAL PROTEIN, SERUM 7.2 g/dL (6.0-8.3); UREA NITROGEN, BLOOD 3.0 mg/dL (7-18)
--- NOTE | 2025-03-04 10:50 | NUR ---
U/S GD PARACENTESIS PROCEDURE PERFORMED BY DR Mae HOOKER. PUNCTURE SITE LLQ AND PATIENT TOLERATED PROCEDURE WELL. TOTAL REMOVED 6.2 LITERS OF CLOUDY YELLOW FLUID. ALBUMIN 25% 50 GRAMS IV GIVEN DURING PROCEDURE. SPECIMEN SENT TO LAB. END OF PROCEDURE AT 1020. CATHETER REMOVED AND DRESSING APPLIED. NO BLEEDING NOTED. DISCHARGE INSTRUCTIONS GIVEN TO PATIENT AND VERBALIZED UNDERSTANDING. DISCHARGED VIA AMBULATION AT 1050. AAO X3 WITH NO C/O PAIN.
[2025-03-04 11:50] LABS: BASOPHILS % (MANUAL) 2 % (0-2); EOSINOPHILS % (MANUAL) 3 % (1-6); LYMPHOCYTES % (MANUAL) 32 % (22-44); MAN.DIFF COMMENT-IMPRESSION MANUAL DIFFERENTIAL; MONOCYTES % (MANUAL) 13 % (2-9); SEGMENTED NEUTROPHILS % 50 % (40-70)
[2025-03-04 11:51] LABS: PLATELET MORPHOLOGY COMMENT DECREASED
[2025-03-04 13:24] LABS: ALBUMIN,BODY FLUID 0.7 g/dL
[2025-03-04 13:26] LABS: TOTAL PROTEIN,BODY FLUID < 2.0 g/dL
[2025-03-04 13:53] LABS: BODY FLUID RBC 200 /cu. mm.; BODY FLUID WBC 110 /cu. mm.
[2025-03-04 13:54] LABS: APPEARANCE BODY FLUID CLEAR (CLEAR); COLOR,BODY FLUID YELLOW (LT YELLOW); SPECIMENTYPE,BODY FLUID ASCITES; TOTAL VOLUME,BODY FLUID 9200 mL
--- NOTE | 2025-03-04 14:14 | HMCIMG ---
US ABDOMINAL PARACENTESIS IR REASON: ASCITES TECHNIQUE: Paracentesis was performed with ultrasound guidance. The puncture site was selected in the Right lower quadrant and overlying skin prepped and draped in a sterile fashion. 1% Xylocaine infiltration was performed. Catheter was placed in the fluid using trocar technique. 9.2 L were removed. Fluid sample was submitted for laboratory evaluation. The patient showed no evidence of complication during the procedure. Patient tolerated procedure well. IMPRESSION: 1. Ultrasound-guided paracentesis.
[2025-03-04 15:08] LABS: BF LYMPHOCYTE 66 %; BF MESOTHELIAL 17 %; BF MONOCYTE 6 %; BF NEUTROPHIL 11.0 %; BF TOTAL CELLS COUNTED 100
== END | disposition home or self-care (01) ==
LOC: RAH 09:10
PROVIDERS: ATTEND Internal Medicine Gastroenterology
DX: K70.31 Alcoholic cirrhosis of liver with ascites (principal); K21.9 Gastro-esophageal reflux disease without esophagitis; R14.0 Abdominal distension (gaseous); Z86.0100 Personal history of colon polyps, unspecified; I85.10 Secondary esophageal varices without bleeding; R11.0 Nausea; K82.9 Disease of gallbladder, unspecified; E87.6 Hypokalemia; E87.1 Hypo-osmolality and hyponatremia; Z79.01 Long term (current) use of anticoagulants; Z79.899 Other long term (current) drug therapy
CPT/HCPCS: 49083; 84157; 80053; 85025; 89051; 85610; 85730; 87071; 87205; 82042; 36415; 88108; 88305; P9046; C1729; 96365

== ENCOUNTER → 2025-03-18 | Outpatient (CLI) | payer OTHER ==
[~2025-03-18] MED LIST changes: -ALBUMIN HUMAN 25% 200 ML IV ONE; -IBUP-1492 PO; +IBUP-2070 PO
[2025-03-18] MEDS: ALBUMIN HUMAN 25% 200 ML IV ONE (11:09)
--- NOTE | 2025-03-18 11:50 | NUR ---
U/S GD PARACENTESIS PROCEDURE PERFORMED BY DR HOOKER. PUNCTURE SITE RLQ AND PATIENT TOLERATED PROCEDURE WELL. TOTAL REMOVED 11.0 LITERS OF YELLOW CLOUDY FLUID. ALBUMIN 25% 50 GRAMS IV GIVEN DURING PROCEDURE. SPECIMEN SENT TO LAB. END OF PROCEDURE AT 1130. CATHETER REMOVED AND DRESSING APPLIED. NO BLEEDING NOTED. DISCHARGE INSTRUCTIONS GIVEN TO PATIENT AND VERBALIZED UNDERSTANDING. DISCHARGED VIA AMBULATORY. AAO X3 WITH NO C/O PAIN.
[2025-03-18 13:54] LABS: ALBUMIN,BODY FLUID 0.7 g/dL
[2025-03-18 13:59] LABS: TOTAL PROTEIN,BODY FLUID < 2.0 g/dL
--- NOTE | 2025-03-18 15:00 | HMCIMG ---
US ABDOMINAL PARACENTESIS IR REASON: ASCITES TECHNIQUE: Paracentesis was performed with ultrasound guidance. The puncture site was selected in the Right lower quadrant and overlying skin prepped and draped in a sterile fashion. 1% Xylocaine infiltration was performed. Catheter was placed in the fluid using trocar technique. 11 L were removed. Fluid sample was submitted for laboratory evaluation. The patient showed no evidence of complication during the procedure. Patient tolerated procedure well. IMPRESSION: 1. Ultrasound-guided paracentesis.
[2025-03-18 15:04] LABS: BODY FLUID RBC 194 /cu. mm.; BODY FLUID WBC 130 /cu. mm.
[2025-03-18 17:55] LABS: BF LYMPHOCYTE 13 %; BF MACROPHAGE 75; BF MONOCYTE 1 %; BF NEUTROPHIL 10.0 %; BF OTHER CELLS 1; BF TOTAL CELLS COUNTED 100
[2025-03-18 17:57] LABS: APPEARANCE BODY FLUID CLEAR (CLEAR); COLOR,BODY FLUID LT YELLOW (LT YELLOW); SPECIMENTYPE,BODY FLUID ASCITES
[2025-03-18 17:58] LABS: TOTAL VOLUME,BODY FLUID 11000 mL
== END | disposition home or self-care (01) ==
LOC: RAH 09:35
PROVIDERS: ATTEND Internal Medicine Gastroenterology
DX: K70.31 Alcoholic cirrhosis of liver with ascites (principal); I85.10 Secondary esophageal varices without bleeding; R11.0 Nausea; K82.9 Disease of gallbladder, unspecified; K21.9 Gastro-esophageal reflux disease without esophagitis; Z86.0100 Personal history of colon polyps, unspecified; E87.6 Hypokalemia; E87.1 Hypo-osmolality and hyponatremia; Z98.890 Other specified postprocedural states; Z79.899 Other long term (current) drug therapy
CPT/HCPCS: 49083; 84157; 89051; 87071; 87076; 87205; 82042; P9046; C1729; 96365

== ENCOUNTER → 2025-03-27 | Outpatient (CLI) | payer OTHER ==
[~2025-03-27] MED LIST changes: +IBUP-1492 PO; -IBUP-2070 PO
--- NOTE | 2025-03-27 15:43 | HMCIMG ---
EXAM: US Abdomen complete CLINICAL HISTORY: cirrhosis TECHNIQUE: Real-time ultrasound of the abdomen (complete) with image documentation. COMPARISON: None provided. FINDINGS: LIVER: Measures 15 cm lobulated. Left lobe obscured The portal vein diameter of 16 mm shows hepatopetal flow with 11 cm/sec velocity. The left hepatic vein is 17 cm/sec, the mid hepatic vein is 8 cm/sec, and the right hepatic vein is 14 cm/sec. Hepatic artery 110 cm/sec, RI 0.76 GALLBLADDER: Possible GB stones with wall thickening (5 mm) COMMON BILE DUCT: Measures 6 mm. Recommendation for MRCP for further evaluation. PANCREAS: Obscured. KIDNEYS: Normal renal contours. No renal mass or calculus. No hydronephrosis. Right kidney 9.2 x 3.5 x 3.9 cm left kidney 1.5 x 4.4 x 3.4 cm. SPLEEN: Enlarged in size (12.9 cm) . No mass identified. Splenic vein within normal limits. AORTA: Obscured. IVC: Obscured. MISCELLANEOUS: 4 quadrants were seen with free fluid. IMPRESSION: 1. Cirrhotic liver with portal hypertension, evidenced by hepatomegaly, splenomegaly, and ascites 2. Cholelithiasis with gallbladder wall thickening 3. Common bile duct dilation to 6 mm /Sandwich
== END | disposition home or self-care (01) ==
LOC: RAH 07:26
PROVIDERS: ATTEND Internal Medicine Gastroenterology
DX: K70.31 Alcoholic cirrhosis of liver with ascites (principal); K80.20 Calculus of gallbladder without cholecystitis without obstruction; K76.6 Portal hypertension; R16.2 Hepatomegaly with splenomegaly, not elsewhere classified
CPT/HCPCS: 76700; 93975

== ENCOUNTER → 2025-04-16 | Outpatient (CLI) | payer OTHER ==
--- NOTE | 2025-04-16 09:40 | NUR ---
ULTRASOUND GUIDED PARACENTESIS PROCEDURE PERFORMED BY DR. DENG HOOKER. PUNCTURE SITE RLQ AND PATIENT TOLERATED PROCEDURE WELL. TOTAL REMOVED 7.5 LITERS OF CLEAR, YELLOW ASCITES FLUID. ALBUMIN 25% 50 GRAMS IV GIVEN DURING PROCEDURE. SPECIMEN SENT TO LAB. END OF PROCEDURE AT 0930. CATHETER REMOVED AND DRESSING APPLIED- NO BLEEDING NOTED. DISCHARGE INSTRUCTIONS GIVEN TO PATIENT AND VERBALIZED UNDERSTANDING. PATIENT DISCHARGED VIA AMBULATORY WITH NO C/O PAIN.
[2025-04-16 10:48] LABS: IMMATURE GRANULOCYTE ABSOLUTE 0.01 K/uL (0-1); NUCLEATED RED BLOOD CELLS 0.0 % (0.0-0.19); PLATELET COUNT (AUTO) 108 K/uL (130-400); RED BLOOD CELL COUNT(AUTO) 3.63 MIL/uL (4.50-6.20); RED CELL DISTRIBUTION WIDTH 16.0 % (11.0-15.5); WHITE BLOOD COUNT (AUTO) 2.7 K/uL (4.8-10.8)
[2025-04-16 10:58] LABS: INR 1.18 (0.85-1.15)
--- NOTE | 2025-04-16 11:04 | HMCIMG ---
US ABDOMINAL PARACENTESIS IR REASON: ASCITES TECHNIQUE: Paracentesis was performed with ultrasound guidance. The puncture site was selected in the Right lower quadrant and overlying skin prepped and draped in a sterile fashion. 1% Xylocaine infiltration was performed. Catheter was placed in the fluid using trocar technique. 7.5 were removed. Fluid sample was submitted for laboratory evaluation. The patient showed no evidence of complication during the procedure. Patient tolerated procedure well IMPRESSION: 1. Ultrasound-guided paracentesis.
[2025-04-16 11:09] LABS: ASPARTATE AMINOTRANSFERASE 70.0 U/L (10-37); CREATININE 0.5 mg/dL (0.5-1.3); GLOMERULAR FILTR. RATE CALC 121.0 mL/min (>90); GLUCOSE,RANDOM 72.0 mg/dL (70-105); SODIUM SERUM 130.0 mmol/L (136-145); TOTAL PROTEIN, SERUM 7.2 g/dL (6.0-8.3); UREA NITROGEN, BLOOD 4.0 mg/dL (7-18)
[2025-04-16 11:52] LABS: BODY FLUID RBC 0 /cu. mm.; BODY FLUID WBC 270 /cu. mm.
[2025-04-16 11:53] LABS: APPEARANCE BODY FLUID SLIGHTLY CLOUDY (CLEAR); COLOR,BODY FLUID YELLOW (LT YELLOW); SPECIMENTYPE,BODY FLUID ASCITES
[2025-04-16 11:56] LABS: TOTAL VOLUME,BODY FLUID 7500 mL
[2025-04-16 12:00] LABS: LYMPHOCYTES % (MANUAL) 20 % (22-44); MAN.DIFF COMMENT-IMPRESSION MANUAL DIFFERENTIAL; MONOCYTES % (MANUAL) 16 % (2-9); SEGMENTED NEUTROPHILS % 64 % (40-70)
[2025-04-16 12:01] LABS: PLATELET MORPHOLOGY COMMENT SLIGHTLY DECREASED
[2025-04-16 14:03] LABS: BF LYMPHOCYTE 40 %; BF MACROPHAGE 12; BF MESOTHELIAL 5 %; BF MONOCYTE 42 %; BF NEUTROPHIL 1.0 %; BF TOTAL CELLS COUNTED 100
[2025-04-16] MEDS: ALBUMIN HUMAN 25% 200 ML IV ONE (15:45)
== END | disposition home or self-care (01) ==
LOC: RAH 08:18
PROVIDERS: ATTEND Internal Medicine Gastroenterology
DX: R18.8 Other ascites (principal); Z79.01 Long term (current) use of anticoagulants
CPT/HCPCS: 49083; 80053; 85025; 89051; 85610; 85730; 36415; P9046; C1729

== ENCOUNTER → 2025-06-20 | Outpatient (CLI) | payer OTHER ==
[~2025-06-20] MED LIST changes: +ALBUMIN HUMAN 25% 200 ML IV ONE
--- NOTE | 2025-06-20 09:15 | NUR ---
U/S GD PARACENTESIS PROCEDURE PERFORMED BY DR Mae HOOKER. PUNCTURE SITE RLQ AND PATIENT TOLERATED PROCEDURE WELL. TOTAL REMOVED 6 LITERS OF CLOUDY YELLOW FLUID. ALBUMIN 25% 50 GRAMS IV GIVEN DURING PROCEDURE. SPECIMEN SENT TO LAB. END OF PROCEDURE AT 0845. CATHETER REMOVED AND DRESSING APPLIED. NO BLEEDING NOTED. DISCHARGE INSTRUCTIONS GIVEN TO PATIENT AND VERBALIZED UNDERSTANDING. DISCHARGED VIA AMBULATION AT 0915. AAO X3 WITH NO C/O PAIN.
--- NOTE | 2025-06-20 11:08 | HMCIMG ---
US ABDOMINAL PARACENTESIS IR REASON: ASCITES TECHNIQUE: Paracentesis was performed with ultrasound guidance. The puncture site was selected in the Right lower quadrant and overlying skin prepped and draped in a sterile fashion. 1% Xylocaine infiltration was performed. Catheter was placed in the fluid using trocar technique. 6 L were removed. Fluid sample was submitted for laboratory evaluation. The patient showed no evidence of complication during the procedure. Patient tolerated procedure well. IMPRESSION: 1. Ultrasound-guided paracentesis.
[2025-06-20 13:38] LABS: BODY FLUID RBC 112 /cu. mm.; BODY FLUID WBC 207 /cu. mm.
[2025-06-20 13:43] LABS: APPEARANCE BODY FLUID CLEAR (CLEAR); COLOR,BODY FLUID YELLOW (LT YELLOW); SPECIMENTYPE,BODY FLUID ASCITES; TOTAL VOLUME,BODY FLUID 6000 mL
[2025-06-20 13:53] LABS: BF LYMPHOCYTE 6 %; BF MACROPHAGE 37; BF MESOTHELIAL 45 %; BF MONOCYTE 12 %; BF TOTAL CELLS COUNTED 100
== END ==
LOC: RAH 07:54
PROVIDERS: ATTEND Internal Medicine Gastroenterology
DX: R18.8 Other ascites (principal)
CPT/HCPCS: 49083; 89051; P9046; C1729

== ENCOUNTER → 2025-07-04 | Outpatient (CLI) | payer OTHER ==
[~2025-07-04] MED LIST changes: -ALBUMIN HUMAN 25% 200 ML IV ONE
[2025-07-04] MEDS: ALBUMIN HUMAN 25% 200 ML IV ONE (09:20)
[2025-07-04 09:21] LABS: IMMATURE GRANULOCYTE ABSOLUTE 0.00 K/uL (0-1); NUCLEATED RED BLOOD CELLS 0.0 % (0.0-0.19); PLATELET COUNT (AUTO) 100 K/uL (130-400); RED BLOOD CELL COUNT(AUTO) 3.84 MIL/uL (4.50-6.20); RED CELL DISTRIBUTION WIDTH 15.9 % (11.0-15.5); WHITE BLOOD COUNT (AUTO) 2.3 K/uL (4.8-10.8)
[2025-07-04 09:31] LABS: INR 1.15 (0.85-1.15)
[2025-07-04 09:42] LABS: ASPARTATE AMINOTRANSFERASE 67.0 U/L (10-37); CREATININE 0.7 mg/dL (0.5-1.3); GLOMERULAR FILTR. RATE CALC 110.0 mL/min (>90); GLUCOSE,RANDOM 113.0 mg/dL (70-105); SODIUM SERUM 135.0 mmol/L (136-145); TOTAL PROTEIN, SERUM 7.6 g/dL (6.0-8.3); UREA NITROGEN, BLOOD 4.0 mg/dL (7-18)
--- NOTE | 2025-07-04 09:50 | NUR ---
U/S GD PARACENTESIS PROCEDURE PERFORMED BY DR HOOKER. PUNCTURE SITE LLQ AND PATIENT TOLERATED PROCEDURE WELL. TOTAL REMOVED 9.0 LITERS OF YELLOW CLOUDY ASCITES FLUID. ALBUMIN 25% 50 GRAMS IV GIVEN DURING PROCEDURE. SPECIMEN SENT TO LAB. END OF PROCEDURE AT 0930. CATHETER REMOVED AND DRESSING APPLIED. NO BLEEDING NOTED. DISCHARGE INSTRUCTIONS GIVEN TO PATIENT AND VERBALIZED UNDERSTANDING. DISCHARGED VIA AMBULATORY. AAO X3 WITH NO C/O PAIN.
[2025-07-04 10:11] LABS: BASOPHILS % (MANUAL) 1 % (0-2); EOSINOPHILS % (MANUAL) 3 % (1-6); LYMPHOCYTES % (MANUAL) 27 % (22-44); MONOCYTES % (MANUAL) 8 % (2-9); REACTIVE LYMPHOCYTES 1 % (0-0); SEGMENTED NEUTROPHILS % 60 % (40-70)
[2025-07-04 10:12] LABS: MAN.DIFF COMMENT-IMPRESSION MANUAL DIFFERENTIAL; PLATELET MORPHOLOGY COMMENT SLIGHTLY DECREASED
--- NOTE | 2025-07-04 11:26 | HMCIMG ---
US ABDOMINAL PARACENTESIS IR REASON: ASCITES Procures performed by Dr Abbi Nichols MD PGY2 with Dr Craft TECHNIQUE: Paracentesis was performed with ultrasound guidance. The puncture site was selected in the Right lower quadrant and overlying skin prepped and draped in a sterile fashion. 1% Xylocaine infiltration was performed. Catheter was placed in the fluid using trocar technique. 9 were removed. Fluid sample was submitted for laboratory evaluation. The patient showed no evidence of complication during the procedure. Patient tolerated procedure well IMPRESSION: 1. Ultrasound-guided paracentesis.
[2025-07-04 14:05] LABS: APPEARANCE BODY FLUID CLEAR (CLEAR); COLOR,BODY FLUID YELLOW (LT YELLOW); SPECIMENTYPE,BODY FLUID ASCITES; TOTAL VOLUME,BODY FLUID 9000 mL
[2025-07-04 14:13] LABS: BODY FLUID RBC 52 /cu. mm.; BODY FLUID WBC 156 /cu. mm.
[2025-07-04 16:10] LABS: BF LYMPHOCYTE 3 %; BF MACROPHAGE 94; BF MESOTHELIAL 2 %; BF NEUTROPHIL 1.0 %; BF TOTAL CELLS COUNTED 100
== END ==
LOC: RAH 08:24
PROVIDERS: ATTEND Internal Medicine Gastroenterology
DX: K70.31 Alcoholic cirrhosis of liver with ascites (principal)
CPT/HCPCS: 49083; 80053; 85025; 89051; 85610; 85730; 36415; P9046; C1729; 96365

== ENCOUNTER → 2025-07-30 | Outpatient (CLI) | payer OTHER ==
--- NOTE | 2025-07-30 12:10 | NUR ---
U/S GD PARACENTESIS PROCEDURE PERFORMED BY DR Mae HOOKER. PUNCTURE SITE RLQ AND PATIENT TOLERATED PROCEDURE WELL. TOTAL REMOVED 8.1 LITERS OF YELLOW CLOUDY ASCITES FLUID. ALBUMIN 25% 50 GRAMS IV GIVEN DURING PROCEDURE. SPECIMEN SENT TO LAB. END OF PROCEDURE AT 1150. CATHETER REMOVED AND DRESSING APPLIED. NO BLEEDING NOTED. DISCHARGE INSTRUCTIONS GIVEN TO PATIENT AND VERBALIZED UNDERSTANDING. DISCHARGED VIA AMBULATORY. AAO X3 WITH NO C/O PAIN.
--- NOTE | 2025-07-30 14:25 | HMCIMG ---
US ABDOMINAL PARACENTESIS IR REASON: ASCITES TECHNIQUE: Paracentesis was performed with ultrasound guidance. The puncture site was selected in the Right lower quadrant and overlying skin prepped and draped in a sterile fashion. 1% Xylocaine infiltration was performed. Catheter was placed in the fluid using trocar technique. 8.1 L were removed. Fluid sample was submitted for laboratory evaluation. The patient showed no evidence of complication during the procedure. Patient tolerated procedure well. IMPRESSION: 1. Ultrasound-guided paracentesis.
[2025-07-30] MEDS: ALBUMIN HUMAN 25% 200 ML IV ONE (16:00)
[2025-07-30 16:15] LABS: BODY FLUID RBC 404 /cu. mm.; BODY FLUID WBC 49 /cu. mm.
[2025-07-30 16:18] LABS: APPEARANCE BODY FLUID CLEAR (CLEAR); COLOR,BODY FLUID YELLOW (LT YELLOW); SPECIMENTYPE,BODY FLUID ASCITES; TOTAL VOLUME,BODY FLUID 8100 mL
[2025-07-30 17:19] LABS: BF LYMPHOCYTE 4 %; BF MACROPHAGE 94; BF NEUTROPHIL 1.0 %; BF OTHER CELLS 1; BF TOTAL CELLS COUNTED 100
== END ==
LOC: RAH 09:50
PROVIDERS: ATTEND Internal Medicine Gastroenterology
DX: K70.31 Alcoholic cirrhosis of liver with ascites (principal); I85.00 Esophageal varices without bleeding; K21.00 Gastro-esophageal reflux disease with esophagitis, without bleeding; K29.50 Unspecified chronic gastritis without bleeding; K82.9 Disease of gallbladder, unspecified; E87.6 Hypokalemia; E87.1 Hypo-osmolality and hyponatremia; Z86.2 Personal history of diseases of the blood and blood-forming organs and certain disorders involving the immune mechanism; Z79.899 Other long term (current) drug therapy
CPT/HCPCS: 49083; 89051; 87071; 87205; P9046; C1729; 96365